=== PATIENT | male | born 1945 | race African-American/Black ===

== ENCOUNTER 2017-01-09 04:21 | Inpatient (IN) ==
[2017-01-09] MEDS ORDERED: ALBUTEROL 2.5 MG/3 ML NEB RESP TX PRN (04:40)
[2017-01-09] MEDS ORDERED: ONDANSETRON 4 MG/2 ML VIAL IV PRN (04:40)
[2017-01-09] MEDS ORDERED: DOPamine 800 MG/250 ML PREMIX IV ONE (05:33)
[2017-01-09] MEDS: DOPamine 800 MG/250 ML PREMIX IV SCH ×2 (05:37→23:06)
--- NOTE | 2017-01-09 05:52 | Hospitalist History & Physical ---
Assessment and Plan (1) Bilateral pneumonia Status: Acute Current Visit: Yes (2) Hypotension Status: Acute Current Visit: Yes (3) Dementia Status: Acute Current Visit: No (4) Dementia of Alzheimer's type with behavioral disturbance Status: Acute Current Visit: No (5) Hypertension Status: Acute Assessment and plan: We are ordering repeat labs. We will start him on IV antibiotics. He did receive Merrem and Levaquin at the outside facility. I am going to change him to Zosyn. Will order ABG. I will get a new chest x-ray. Continue with IV hydration and dopamine. Will continue with PEG tube feedings. Will continue with ICU monitoring secondary to his hypotension. Patient has elevated proBNP. I will order a BNP this morning. Current Visit: No History of Present Illness Chief complaint: Transfer from outside facility History of present illness: Mr. Augustine is a 71 year old male with past medical history significant for dementia, hypertension, anxiety, anemia, coronary artery disease and reflux who is in his normal state of generally poor health till today. Patient is a resident of alf. He was transferred to [facility]. Apparently patient was found to have a bilateral pneumonia and was admitted at the facility. According to the attending there. He had a decrease in blood pressure. And became less responsive. He is put on dopamine and it brought his pressure up after receiving some boluses. I accept the patient is transfer from outside facility and admitted directly to our ICU.. Home Medications Medication Instructions Recorded Confirmed Type RX: Amlodipine Besylate 5 mg PO DAILY 01/09/15 07/27/16 History RX: Atorvastatin [Lipitor] 1 tablet PO DAILY 01/09/15 07/27/16 History RX: Carvedilol 1 tablet PO BID 01/09/15 07/27/16 History RX: Cholecalciferol (Vitamin D3) 1 tablet PER TUBE DAILY 01/09/15 07/27/16 History [Vitamin D3 Chew Tab] RX: Cyanocobalamin (Vitamin B-12) 1,000 mcg PER TUBE DAILY 01/09/15 07/27/16 History [Vitamin B-12] RX: Docusate Sodium Cap [Colace 100 mg PO DAILY 01/09/15 07/27/16 History Cap] RX: Montelukast Tab [Singulair Tab] 10 mg PO BEDTIME 01/09/15 07/27/16 History RX: Multivitamin [One Daily] 1 tablet PO DAILY 01/09/15 07/27/16 History RX: Tamsulosin [Flomax] 1 capsule PO BEDTIME 01/10/15 07/27/16 History RX: Famotidine 20 mg PO DAILY 01/12/15 07/27/16 History RX: Potassium Chloride Cap/Tab [K 20 meq PO DAILY 01/12/15 07/27/16 History Dur] RX: Donepezil [Aricept] 10 mg PO BEDTIME #30 tablet 01/27/15 07/27/16 Rx RX: Memantine [Namenda] 10 mg PO BID #60 tablet 01/27/15 07/27/16 Rx RX: Ferrous Sulfate 325 mg PO BID 07/19/16 07/27/16 History RX: Gabapentin Cap/Tab [Neurontin 400 mg PO TID 07/19/16 07/27/16 History Cap/Tab] RX: Tramadol HCl [Tramadol Tab] 50 mg PO BID 07/19/16 07/27/16 History RX: HYDROcodone/ACETAMIN 5-325 1 tablet PO Q6HR PRN #60 tablet 07/31/16 Rx [[place] 5-325] RX: LORazepam TAB [Ativan Tab] 0.5 mg PO TID #45 tablet 07/31/16 Rx RX: QUEtiapine [SEROquel] 25 mg PO BID tablet 07/31/16 Rx RX: Zaleplon [Sonata] 5 mg PO BEDTIME PRN #30 capsule 07/31/16 Rx RX: busPIRone [Buspar] 15 mg PO BID tablet 07/31/16 Rx Allergies Allergy/AdvReac Type Severity Reaction Status Date / Time olanzapine [From Zyprexa] Allergy Verified 07/19/16 12:52 Medical,Surgical,& Family Hx - Medical History Cardio: History of: Cerebrovascular Disease ( reports unknown), CAD, Hypertension Psychological: History of: Behavior Problems (pulled Iv out of arm, hitting others with aggression), Psychiatric Problems (Delusions-believes he is still able to work at times and he at work) No history of: Violent Behavior Neurology: History of: Cerebrovascular Accident, Dementia No history of: Seizures Endocrine: History of: Dyslipidemia No history of: Diabetes Mellitus (IDDM) Genitourinary: History of: Problems (incontinet) Gastrointestinal: History of: GI Problems (PEG/ dysphagia) Musculoskeletal: History of: Musculoskeletal Problems (poor mobility) - Surgical History Cardiac Surgeries: Sugical HX of: Cardiac Surgery Thoracic Surgeries: Patient denies;: Organ Transplant - Family History Family History: noncontributory (Unknown) - Social History Smoking Status: Unknown if ever smoked ROS unobtainable: due to mental status Exam - Constitutional General appearance: normal weight - Head Head exam: Present: normal inspection - Eye Eye exam: Present: other (Patient currently has upward gaze but would not cooperate with exam) - ENT ENT exam: Present: normal exam - Neck Neck exam: Present: normal inspection - Respiratory Respiratory exam: Present: rhonchi (In the basis) - Cardiovascular Cardiovascular exam: Present: regular rate and rhythm - GI/Abdominal GI/Abdominal exam: Present: hyperactive bowel sounds - Extremities Exam Extremities exam: Present: normal inspection - Back Exam Back exam: Present: normal inspection - Neurological Exam Neurological exam: Present: other (Patient will answer some questions. He responds to pain. Patient has obvious dementia) - Skin Skin exam: Present: normal color Results - Labs Labs: I currently do not have labs from [facility]. Labs have been ordered and are not available at the time of this dictation labs from [facility] or 18 hours old and are as follows white count 3.77 hemoglobin 16.5 hematocrit 51.7 sodium 135 potassium 4.0 chloride 101 bicarb 24 creatinine 1.1 BUN 16 calcium 9.3 glucose 116 total bili 1.6 total protein 7.9 albumin 3.0 alk phos 128 ALT 26 AST 17 magnesium 2.09 kinase 105 CK-MB 1 troponin 0 0.013 proBNP is 2398 urinalysis showed 0-5 white blood cells red blood cells too numerous to count.
[2017-01-09] MEDS: ALBUTEROL/IPRATROPIUM 3 ML NEB RESP TX SCH ×3 (06:47→19:23)
[2017-01-09] MEDS: SODIUM CHLORIDE 0.9% 1,000 ML IV SCH ×2 (07:01→22:33)
[2017-01-09 07:07] LABS: Lactic Acid 2.4 MMOL/L (0.4-2.0)
[2017-01-09 07:16] LABS: Calcium 8.9 MG/DL (8.5-10.1); Osmolality,Calculated 280.5 MOS/KG (273-304)
[2017-01-09] MEDS: PIPERACILLIN/TAZOBACTAM 3,375 MG in SODIUM CHLORIDE 0.9% 100 ML IV SCH ×3 (07:23→22:40)
[2017-01-09 07:33] LABS: Basophils # 0.1 10*3/uL (0.0-0.2); Basophils % 0.9 % (0.0-0.8); Hematocrit 43.1 VOL% (42.0-52.0); Hemoglobin 14.7 GM/DL (14.0-18.0); Immature Granulocytes % 1.4 %; Immature Granulocytes Absolute 0.13 #; Lymphocytes % 10.9 % (21.2-54.2); Mean Corpuscular HGB Conc 34.1 GM/DL (32-36); Mean Corpuscular Hemoglobin 30 PG (27-34); Mean Corpuscular Volume 87.6 FL (87-102); Monocytes # 0.3 10*3/uL (0.11-0.8); Monocytes % 2.8 % (1.7-12.7); Neutrophils # 7.8 10*3/uL (1.4-7.4); Platelet Count 99 T/CUMM (130-400); Red Blood Count 4.92 MC/CUMM (3.8-5.5); Red Cell Distribution Width 13.9 % (9.3-17.3); White Blood Count 9.3 T/CUMM (4-12)
--- NOTE | 2017-01-09 07:51 | XRay Report ---
XR chest 1V portable Indication: SOB Comparison: Chest x-ray dated July 27, 2016 Technique: Single frontal view of the chest. Findings: Continued borderline cardiomegaly status post sternotomy. Hazy opacification throughout the right lung field suspicious for asymmetric pulmonary edema or pneumonia. Visualized osseous and surrounding soft tissue structures appear grossly unchanged. IMPRESSION: As above. PROCEDURE INTERPRETED AT [facility] DEPARTMENT OF RADIOLOGY Final Report Signed by: Dr Jeromy Dyer
[2017-01-09 08:02] LABS: Burr Cells 1+; Hypochromasia Slight
[2017-01-09 08:03] LABS: Platelet Estimate Decreased
[2017-01-09] MEDS: ENOXAPARIN 40 MG/0.4 ML SYRINGE SUBCUT SCH (09:14)
[2017-01-09] MEDS: LANSOPRAZOLE ODT 30 MG TABLET PEG SCH (09:14)
[2017-01-09 10:11] LABS: Apearance,Urine CLEAR (Clear); Bilirubin,Urine Negative (Negative); Blood, Urine Small mg/dL (Negative); Glucose,Urine (UA) Negative (Negative); Ketones,Urine Negative (Negative); Mucus,Urine Occasional /LPF (Occasional); Nitrite,Urine Negative (Negative); Protein,Urine Negative; RBC,Urine 1 /HPF (0-4); Squamous Epithelial Cell,Urine Occasional /HPF (0-10); Urine Color Yellow (Yellow); Urine Specific Gravity 1.004 (1.001-1.035); Urine Urobilinogen < 2.0 EU/DL (0.2-1.0); WBC,Urine 2 /HPF (0-6)
--- NOTE | 2017-01-09 10:55 | Hospitalist Progress Note ---
Assessment and Plan - Time spent with patient Time spent with patient: Greater than 30 minutes (1) Bilateral pneumonia Status: Acute Current Visit: Yes (2) Hypotension Status: Acute Current Visit: Yes (3) Dementia Status: Acute Assessment and plan: He is currently on Zosyn, will add Levaquin for wider coverage and double gram- negative coverage. Follow cultures and adjust antibiotics as needed. Continue respiratory therapy. Pulmonology has been consulted. Wean pressors as tolerated. Gentle IV fluid hydration. Obtain echocardiogram CT chest DVT prophylaxisLovenox Current Visit: No Hospitalist: Subjective Interval history: Admitted overnight for sepsis suspected to be due to pneumonia His clinical status is currently unchanged compared to admission status, still requiring pressors. No fever Dejuan altered mental status, we are not sure of his baseline but at this point without sedation he is barely responds to painful stimuli. Exam - Constitutional Vitals: Period Temp Pulse Resp BP Sys/Bowling Pulse Ox Last 24 Hr 100.1 F 66-96 13-18 67-159/42-88 95-100 Exam: - Constitutional General appearance: Requiring pain to wake him up - Head Head exam: Present: normal inspection - Eye Eye exam: Present: Closed except pain - ENT ENT exam: Present: normal exam - Neck Neck exam: Present: normal inspection - Respiratory Respiratory exam: Present: Left transmitted sounds from the upper airway, difficult to appreciate rhonchi (In the basis) - Cardiovascular Cardiovascular exam: Present: regular rate and rhythm - GI/Abdominal GI/Abdominal exam: Present: hyperactive bowel sounds - Extremities Exam Extremities exam: Present: normal inspection - Back Exam Back exam: Present: normal inspection - Neurological Exam Neurological exam: Present: other sleeping, unable to assess. - Skin Skin exam: Present: normal color Results - Labs CBC & BMP: 01/09/17 07:23 01/09/17 06:06 Lab Results: I have reviewed the past 24 hour labs - Diagnostic Findings Procedure: Chest x-ray: image reviewed by me, report reviewed by me
[2017-01-09] MEDS: LEVOFLOXACIN INJ 750 MG in PREMIX 1 EACH IV SCH (12:24)
--- NOTE | 2017-01-09 13:48 | CT Report ---
CT chest wo con Indication: Shortness of breath Comparison: None Technique: Multiple axial tomographic images of the chest were obtained without the use of intravenous contrast. Findings: Prior CABG. Heart size appears within normal limits. There is small pericardial effusion. Coronary artery calcifications present. Significant patchy dense and groundglass opacification demonstrated within the bilateral lungs involving all lobes, greatest within the right upper lobe and bilateral lower lobes. Status post cholecystectomy. Visualized osseous and surrounding soft tissue structures demonstrate no acute abnormality. IMPRESSION: Significant patchy dense and groundglass opacification demonstrated within the bilateral lungs involving all lobes, greatest within the right upper lobe and bilateral lower lobes. Primary consideration is pneumonia. Pulmonary edema may have similar appearance. Status post CABG. Small pericardial effusion. Other/detailed findings as above. The CT exam was performed using one or more of the following dose reduction techniques: Automated exposure control, adjustment of the mA and/or kV according to patient size, or use of iterative reconstruction technique. PROCEDURE INTERPRETED AT [facility] DEPARTMENT OF RADIOLOGY Final Report Signed by: Dr Jeromy Dyer
--- NOTE | 2017-01-09 14:08 | Pulmonology Consult Note ---
Assessment and Plan (1) Major neurocognitive disorder, due to Alzheimer's disease, with behavioral disturbance, mild Status: Acute Assessment and plan: The patient apparently has significant dementia and is in a correction. Current Visit: No (2) Bilateral pneumonia Status: Acute Assessment and plan: The patient does look like he has bilateral infiltrates and will be covered with antibiotics. He certainly could have some aspiration. Current Visit: Yes (3) Hypotension Status: Acute Assessment and plan: The patient has been requiring dopamine. Current Visit: Yes (4) Hypertension Status: Acute Assessment and plan: Patient has a significant history of hypertension Current Visit: No History of Present Illness Chief complaint: Pneumonia History of present illness: Mr. Augustine is a 71 year old black male that apparently has been in the correction with severe dementia. He has a history of having hypertension, coronary artery disease, along with a chronic neurological problems. He does get PEG tube feedings. He apparently was sent in because of lethargy with low blood pressure and was felt to have bilateral pneumonia. He was admitted to the ICU. He is on dopamine at present. He is not able to respond any or communicate any. He has adequate oxygenation on low-flow oxygen. Home Medications Medication Instructions Recorded Confirmed Type Amlodipine Besylate 5 mg PO DAILY 01/09/15 01/09/17 History Atorvastatin [Lipitor] 1 tablet PO DAILY 01/09/15 01/09/17 History Carvedilol 1 tablet PO BID 01/09/15 01/09/17 History Cholecalciferol (Vitamin D3) 1 tablet PER TUBE DAILY 01/09/15 01/09/17 History [Vitamin D3 Chew Tab] Cyanocobalamin (Vitamin B-12) 1,000 mcg PER TUBE DAILY 01/09/15 01/09/17 History [Vitamin B-12] Docusate Sodium Cap [Colace Cap] 100 mg PO DAILY 01/09/15 01/09/17 History Montelukast Tab [Singulair Tab] 10 mg PO BEDTIME 01/09/15 01/09/17 History Multivitamin [One Daily] 1 tablet PO DAILY 01/09/15 01/09/17 History Tamsulosin [Flomax] 1 capsule PO DAILY 01/10/15 01/09/17 History Famotidine 20 mg PO DAILY 01/12/15 01/09/17 History Potassium Chloride Cap/Tab [K Dur] 20 meq PO DAILY 01/12/15 01/09/17 History Memantine [Namenda] 10 mg PO BID #60 tablet 01/27/15 01/09/17 Rx Ferrous Sulfate 325 mg PO BID 07/19/16 01/09/17 History Gabapentin Cap/Tab [Neurontin 400 mg PO TID 07/19/16 01/09/17 History Cap/Tab] Tramadol HCl [Tramadol Tab] 50 mg PO BID 07/19/16 01/09/17 History HYDROcodone/ACETAMIN 5-325 [[place] 1 tablet PO Q6HR PRN #60 tablet 07/31/1601/09 Rx 5-325] LORazepam TAB [Ativan Tab] 0.5 mg PO TID #45 tablet 07/31/16 01/09/17 Rx QUEtiapine [SEROquel] 25 mg PO BID tablet 07/31/16 01/09/17 Rx Zaleplon [Sonata] 5 mg PO BEDTIME PRN #30 capsule 07/31/16 01/09/17 Rx busPIRone [Buspar] 15 mg PO BID tablet 07/31/16 01/09/17 Rx Donepezil [Aricept] 10 mg PO BEDTIME #30 tablet 01/09/17 01/09/17 Rx Sertraline [Zoloft] 100 mg PO BEDTIME 01/09/17 01/09/17 History clonazePAM TAB [KlonoPIN] 0.5 mg PO TID 01/09/17 01/09/17 History risperiDONE [Risperidone] 0.5 mg PO TID 01/09/17 01/09/17 History Allergies Allergy/AdvReac Type Severity Reaction Status Date / Time olanzapine [From Zyprexa] Allergy Verified 07/19/16 12:52 ROS unobtainable: due to mental status (He is unable to give a history) Exam (Pulmonay) H&P - Constitutional Vitals: Period Temp Pulse Resp BP Sys/Bowling Pulse Ox Last 24 Hr 97.4 F-100.1 F 65-96 13-18 67-159/42-88 95-100 General appearance: normal weight, no acute distress (The patient is lying flat in bed and is not in any distress.) - Head Head exam: Present: normal inspection, normocephalic - Eye Eye exam: Present: other (He has wandering eye movements). Absent: scleral icterus Pupils: Present: TYRONE - ENT ENT exam: Present: normal exam - Neck Neck exam: Present: normal inspection. Absent: lymphadenopathy, thyromegaly - Respiratory Respiratory exam: Present: rhonchi (He has shallow breathing with mild rhonchi.) . Absent: accessory muscle use - Cardiovascular Cardiovascular exam: Present: regular rate and rhythm. Absent: gallop, systolic murmur - GI/Abdominal GI/Abdominal exam: Present: normal bowel sounds, soft. Absent: distended, organomegaly, tenderness - Extremities Exam Extremities exam: Absent: calf tenderness, edema - Neurological Exam Neurological exam: Present: altered (He has significant dementia), other ( Patient apparently will respond occasionally) - Psychiatric Psychiatric exam: Absent: anxious - Skin Skin exam: Present: warm, dry Medical,Surgical,& Family Hx - Medical History Cardio: History of: Cerebrovascular Disease ( reports unknown), CAD, Hypertension Psychological: History of: Behavior Problems (pulled Iv out of arm, hitting others with aggression), Psychiatric Problems (Delusions-believes he is still able to work at times and he at work) No history of: Violent Behavior Neurology: History of: Cerebrovascular Accident, Dementia No history of: Seizures Endocrine: History of: Dyslipidemia No history of: Diabetes Mellitus (IDDM) Genitourinary: History of: Problems (incontinet) Gastrointestinal: History of: GI Problems (PEG/ dysphagia) Musculoskeletal: History of: Musculoskeletal Problems (poor mobility) - Surgical History Cardiac Surgeries: Sugical HX of: Cardiac Surgery Thoracic Surgeries: Patient denies;: Organ Transplant - Social History Smoking Status: Unknown if ever smoked Results - Labs CBC & BMP: 01/09/17 07:23 01/09/17 06:06 - Diagnostic Findings Procedure: Chest x-ray: image reviewed by me, report reviewed by me (Chest x- ray does show right lung infiltrate.), CT - chest: image reviewed by me, report reviewed by me (CT shows extensive right lung infiltrate and some left lower lobe infiltrate)
[2017-01-10] MEDS: ALBUTEROL/IPRATROPIUM 3 ML NEB RESP TX SCH ×4 (00:15→19:50)
[2017-01-10 04:26] LABS: Phosphorous 1.7 MG/DL (2.5-4.9)
[2017-01-10] MEDS: DOPamine 800 MG/250 ML PREMIX IV SCH (06:38)
[2017-01-10] MEDS: PIPERACILLIN/TAZOBACTAM 3,375 MG in SODIUM CHLORIDE 0.9% 100 ML IV SCH ×3 (06:38→22:59)
--- NOTE | 2017-01-10 08:11 | Pulmonology Progress Note ---
Pulmonary - PN: Subj Interval history: Patient is a 71-year-old black man that has severe dementia. He is in a snf and has tube feedings but may also get a pured diet. He is not very alert and looks like he could aspirate easily. He comes in with bilateral infiltrates and is being treated for pneumonia. He apparently had a little bit agitation last night but he is sleeping now. He is getting antibiotics and is breathing reasonably well. He is still on low-dose dopamine. He looks like he is resting comfortably at present Exam (Progress Note) - Constitutional Vitals: Period Temp Pulse Resp BP Sys/Bowling Pulse Ox Last 24 Hr 97.4 F-98.9 F 63-119 13-25 83-169/47-95 85-100 Exam: General appearance: normal weight, no acute distress (The patient is lying flat in bed and is not in any distress. He still does not arouse very well.) - Head Head exam: Present: normal inspection, normocephalic - Eye Eye exam: Present: other (He has wandering eye movements). Absent: scleral icterus Pupils: Present: TYRONE - ENT ENT exam: Present: normal exam - Neck Neck exam: Present: normal inspection. Absent: lymphadenopathy, thyromegaly - Respiratory Respiratory exam: Present: He has fair breath sounds bilaterally with some mild rhonchi bilaterally. - Cardiovascular Cardiovascular exam: Present: regular rate and rhythm. Absent: gallop, systolic murmur - GI/Abdominal GI/Abdominal exam: Present: normal bowel sounds, soft. Absent: distended, organomegaly, tenderness - Extremities Exam Extremities exam: Absent: calf tenderness, edema - Neurological Exam Neurological exam: Present: altered (He has significant dementia), other ( Patient apparently will respond occasionally) - Psychiatric Psychiatric exam: Absent: anxious - Skin Skin exam: Present: warm, dry Results - Labs CBC & BMP: 01/09/17 07:23 01/09/17 06:06 Assessment and Plan (1) Major neurocognitive disorder, due to Alzheimer's disease, with behavioral disturbance, mild Status: Acute Assessment and plan: The patient apparently has significant dementia and is in a snf. He really does not follow commands or respond that well. Current Visit: No (2) Bilateral pneumonia Status: Acute Assessment and plan: The patient does look like he has bilateral infiltrates and will be covered with antibiotics. He still is breathing comfortably and has an adequate oxygenation. He will continue with present therapy. Current Visit: Yes (3) Hypotension Status: Acute Assessment and plan: The patient has been requiring dopamine. His blood pressure was reasonably stable through the night. Current Visit: Yes (4) Hypertension Status: Acute Assessment and plan: Patient has a significant history of hypertension Current Visit: No
[2017-01-10] MEDS: ENOXAPARIN 40 MG/0.4 ML SYRINGE SUBCUT SCH (09:22)
[2017-01-10] MEDS: LANSOPRAZOLE ODT 30 MG TABLET PEG SCH (09:22)
--- NOTE | 2017-01-10 10:03 | Hospitalist Progress Note ---
Assessment and Plan (1) Sepsis Status: Acute Assessment and plan: Sepsis secondary to pneumonia. Elevated lactic acid of 2.4. Patient was tachycardic and hypotensive requiring dopamine. This is improving with IV antibiotics and IV fluids. Current Visit: Yes Qualifiers: Sepsis type: sepsis due to unspecified organism Qualified Code(s): A41.9 - Sepsis, unspecified organism (2) Bilateral pneumonia Status: Acute Assessment and plan: Bilateral multi lobar pneumonia. Continue Levaquin and Zosyn. Follow-up repeat chest x-ray. Pulmonary following. Current Visit: Yes Qualifiers: Pneumonia type: due to unspecified organism Lung location: unspecified part of lung Qualified Code(s): J18.9 - Pneumonia, unspecified organism (3) Dementia Status: Chronic Current Visit: No Qualifiers: Dementia type: Alzheimer's disease Alzheimer's disease onset: unspecified onset Dementia behavioral disturbance: with behavioral disturbance Qualified Code(s): G30.8 - Other Alzheimer's disease; F02.81 - Dementia in other diseases classified elsewhere with behavioral disturbance (4) Major neurocognitive disorder, due to Alzheimer's disease, with behavioral disturbance, mild Status: Acute Current Visit: No Hospitalist: Subjective Interval history: Patient seen and examined. No acute events overnight. Case discussed with nursing staff. Labs reviewed. Dopamine weaned off early this morning. Patient has history of dementia and is difficult to communicate with. Respirations are unlabored. Vital signs are improved. Pulmonary consult reviewed. Patient on Levaquin and Zosyn. Exam - Constitutional Vitals: Period Temp Pulse Resp BP Sys/Bowling Pulse Ox Last 24 Hr 97.4 F-98.9 F 63-119 13-25 83-169/47-95 85-100 Exam: Constitutional System: Mild distress. No tremulousness. Head: Normocephalic, atraumatic. Ears, Nose and Throat System: No pain or tenderness. No epistaxis or discharge Eyes System: Pupils equal, round, and reactive. Extraocular muscles intact. Neck: Supple, without adenopathy, No jugular venous distention. No thyromegaly, neck mass, or prior surgery apparent. Respiratory System: Chest rhonchi bilaterally to auscultation. Cardiovascular System: Heart with regular rate and rhythm. GI System: Abdomen soft, nontender. Normo active bowel sounds present. Musculoskeletal System: limbs with no pedal edema. Full distal pulses. Neurological System: Advanced dementia noted. Does not follow commands Results - Labs CBC & BMP: 01/09/17 07:23 01/09/17 06:06 Lab Results: I have reviewed the past 24 hour labs - Diagnostic Findings Procedure: Chest x-ray: image reviewed by me, report reviewed by me, CT - chest : image reviewed by me, report reviewed by me
[2017-01-10] MEDS: LEVOFLOXACIN INJ 750 MG in PREMIX 1 EACH IV SCH (10:53)
[2017-01-10] MEDS: SODIUM CHLORIDE 0.9% 1,000 ML IV SCH (18:11)
[2017-01-11] MEDS: ALBUTEROL/IPRATROPIUM 3 ML NEB RESP TX SCH ×4 (01:36→19:20)
[2017-01-11 04:12] LABS: Basophils % 0.2 % (0.0-0.8); Eosinophils % 0.4 % (0.00-10.9); Hematocrit 40.5 VOL% (42.0-52.0); Hemoglobin 13.7 GM/DL (14.0-18.0); Immature Granulocytes % 0.6 %; Immature Granulocytes Absolute 0.06 #; Lymphocytes # 1.4 10*3/uL (1.4-4.0); Lymphocytes % 13.8 % (21.2-54.2); Mean Corpuscular HGB Conc 33.8 GM/DL (32-36); Mean Corpuscular Hemoglobin 30 PG (27-34); Mean Corpuscular Volume 87.1 FL (87-102); Mean Platelet Volume 11.4 FL (9.6-12.0); Monocytes # 0.7 10*3/uL (0.11-0.8); Monocytes % 7.3 % (1.7-12.7); Neutrophils # 7.6 10*3/uL (1.4-7.4); Neutrophils % 77.7 % (38.7-73.9); Platelet Count 112 T/CUMM (130-400); Red Blood Count 4.65 MC/CUMM (3.8-5.5); Red Cell Distribution Width 13.3 % (9.3-17.3); White Blood Count 9.8 T/CUMM (4-12)
[2017-01-11] MEDS: SODIUM CHLORIDE 0.9% 1,000 ML IV SCH ×3 (04:32→17:37)
[2017-01-11 04:45] LABS: Calcium 8.7 MG/DL (8.5-10.1); Magnesium 2.2 MG/DL (1.8-2.4); Osmolality,Calculated 282.1 MOS/KG (273-304); Potassium 3.2 MMOL/L (3.5-5.1)
[2017-01-11 05:26] LABS: Band Neutrophils 2 % (0-10); Burr Cells Slight; Hypochromasia Slight; Lymphocytes 18 % (20-55); Ovalocytes Slight; Platelet Estimate Decreased; Segmented Neutrophils 76 % (50-85); Total Cells Counted 100
[2017-01-11] MEDS: PIPERACILLIN/TAZOBACTAM 3,375 MG in SODIUM CHLORIDE 0.9% 100 ML IV SCH ×3 (06:31→21:21)
[2017-01-11] MEDS: DOPamine 800 MG/250 ML PREMIX IV SCH (06:31)
--- NOTE | 2017-01-11 07:35 | XRay Report ---
XR chest 1V portable Indication: Pneumonia Comparison: Chest x-ray dated January 09, 2017 Technique: Single frontal view of the chest. Findings: Continued cardiomegaly status post sternotomy. Interval increased diffuse right lung consolidation consistent with asymmetric pulmonary edema or pneumonia. Visualized osseous and surrounding soft tissue structures appear grossly unchanged. IMPRESSION: As above. PROCEDURE INTERPRETED AT [facility] DEPARTMENT OF RADIOLOGY Final Report Signed by: Dr Jeromy Dyer
--- NOTE | 2017-01-11 08:18 | Pulmonology Progress Note ---
Pulmonary - PN: Subj Interval history: Patient is a 71-year-old black man that has severe dementia. He is in a [place] [facility] and has tube feedings but may also get a pured diet. He is not very alert and looks like he could aspirate easily. He comes in with bilateral infiltrates and is being treated for pneumonia. He does not cough very well. He does not appear to be in much distress. He does not respond very well. His chest x-ray shows considerable right lung infiltrate. Exam (Progress Note) - Constitutional Vitals: Period Temp Pulse Resp BP Sys/Bowlign Pulse Ox Last 24 Hr 98 F-99.2 F 6-103 3-25 86-171/54-92 96-100 Exam: General appearance: normal weight, no acute distress (The patient is lying flat in bed and is not in any distress. He still does not arouse very well. He still is breathing comfortably.) - Head Head exam: Present: normal inspection, normocephalic - Eye Eye exam: Present: other (He has wandering eye movements). Absent: scleral icterus Pupils: Present: TYRONE - ENT ENT exam: Present: normal exam - Neck Neck exam: Present: normal inspection. Absent: lymphadenopathy, thyromegaly - Respiratory Respiratory exam: Present: He has fair breath sounds bilaterally with some mild rhonchi bilaterally. - Cardiovascular Cardiovascular exam: Present: regular rate and rhythm. Absent: gallop, systolic murmur - GI/Abdominal GI/Abdominal exam: Present: normal bowel sounds, soft. Absent: distended, organomegaly, tenderness - Extremities Exam Extremities exam: Absent: calf tenderness, edema - Neurological Exam Neurological exam: Present: altered (He has significant dementia), other ( Patient apparently will respond occasionally) - Psychiatric Psychiatric exam: Absent: anxious - Skin Skin exam: Present: warm, dry Results - Labs CBC & BMP: 01/11/17 02:50 01/11/17 02:50 - Diagnostic Findings Procedure: Chest x-ray: image reviewed by me, report reviewed by me (Chest x- ray shows considerable infiltrate on the right.) Assessment and Plan (1) Major neurocognitive disorder, due to Alzheimer's disease, with behavioral disturbance, mild Status: Acute Assessment and plan: The patient apparently has significant dementia and is in a [place] [facility]. He really does not follow commands or respond that well. Current Visit: No (2) Bilateral pneumonia Status: Acute Assessment and plan: The patient mainly has a right lung infiltrate now. He has poor pulmonary toilet. Will plan a bronchoscope in the morning and check his airway. Current Visit: Yes Qualifiers: Pneumonia type: due to unspecified organism Lung location: unspecified part of lung Qualified Code(s): J18.9 - Pneumonia, unspecified organism (3) Hypotension Status: Acute Assessment and plan: The patient has been requiring dopamine. His blood pressure is better and is off pressors now. Current Visit: Yes (4) Hypertension Status: Acute Assessment and plan: Patient has a significant history of hypertension Current Visit: No
[2017-01-11] MEDS: ENOXAPARIN 40 MG/0.4 ML SYRINGE SUBCUT SCH (08:22)
[2017-01-11] MEDS: LANSOPRAZOLE ODT 30 MG TABLET PEG SCH (08:22)
[2017-01-11] MEDS: POTASSIUM CHLORIDE RIDER 10 MEQ in PREMIX 1 EACH IV SCH ×4 (08:22→12:54)
--- NOTE | 2017-01-11 08:34 | Hospitalist Progress Note ---
Assessment and Plan (1) Sepsis Status: Acute Assessment and plan: Sepsis secondary to pneumonia. Elevated lactic acid of 2.4. Patient was tachycardic and hypotensive requiring dopamine. This is improving with IV antibiotics and IV fluids. 01/11/17 He is off pressors. Vital signs are stable. Continue IV antibiotics. Plan for bronchoscopy by Dr. Dawson in the a.m. Current Visit: Yes Qualifiers: Sepsis type: sepsis due to unspecified organism Qualified Code(s): A41.9 - Sepsis, unspecified organism (2) Bilateral pneumonia Status: Acute Assessment and plan: Bilateral multi lobar pneumonia. Continue Levaquin and Zosyn. Worse on the right. pulmonary following. Current Visit: Yes Qualifiers: Pneumonia type: due to unspecified organism Lung location: unspecified part of lung Qualified Code(s): J18.9 - Pneumonia, unspecified organism (3) Dementia Status: Chronic Current Visit: No Qualifiers: Dementia type: Alzheimer's disease Alzheimer's disease onset: unspecified onset Dementia behavioral disturbance: with behavioral disturbance Qualified Code(s): G30.8 - Other Alzheimer's disease; F02.81 - Dementia in other diseases classified elsewhere with behavioral disturbance (4) Major neurocognitive disorder, due to Alzheimer's disease, with behavioral disturbance, mild Status: Acute Current Visit: No Hospitalist: Subjective Interval history: Patient seen and examined. No acute events overnight. Case discussed with nursing staff. Labs reviewed. Chest x-ray reviewed showing significant right lung infiltrates. Pulmonary note reviewed and plan for bronchoscopy noted. Patient off pressors. No acute distress. Vital signs stable. Exam - Constitutional Vitals: Period Temp Pulse Resp BP Sys/Bowling Pulse Ox Last 24 Hr 98 F-99.2 F 6-103 3-25 95-171/62-92 96-100 Exam: Constitutional System: No distress. No tremulousness. Arouses easily to verbal command. Head: Normocephalic, atraumatic. Ears, Nose and Throat System: No pain or tenderness. No epistaxis or discharge Eyes System: Pupils equal, round, and reactive. Extraocular muscles intact. Neck: Supple, without adenopathy, No jugular venous distention. No thyromegaly, neck mass, or prior surgery apparent. Respiratory System: Chest rhonchi right lung to auscultation. Wet sounding cough. Nonproductive. Cardiovascular System: Heart with regular rate and rhythm. GI System: Abdomen soft, nontender. Normo active bowel sounds present. Musculoskeletal System: limbs with no pedal edema. Full distal pulses. Neurological System: Advanced dementia noted. Results - Labs CBC & BMP: 01/11/17 02:50 01/11/17 02:50 Lab Results: I have reviewed the past 24 hour labs - Diagnostic Findings Procedure: Chest x-ray: image reviewed by me, report reviewed by me (Extensive right lung infiltrate)
[2017-01-11] MEDS: MEMANTINE 10 MG TABLET PO SCH ×2 (10:45→21:21)
[2017-01-11] MEDS ORDERED: POTASSIUM CHLORIDE RIDER 100 ML IV ONE (12:32)
[2017-01-11] MEDS: LEVOFLOXACIN INJ 750 MG in PREMIX 1 EACH IV SCH (12:55)
[2017-01-11] MEDS: MONTELUKAST 10 MG TABLET PO SCH (21:21)
[2017-01-12] MEDS: ALBUTEROL/IPRATROPIUM 3 ML NEB RESP TX SCH ×4 (00:10→19:38)
[2017-01-12] MEDS: PIPERACILLIN/TAZOBACTAM 3,375 MG in SODIUM CHLORIDE 0.9% 100 ML IV SCH ×3 (06:28→21:19)
[2017-01-12] MEDS: SODIUM CHLORIDE 0.9% 1,000 ML IV SCH ×2 (06:57→21:19)
[2017-01-12] MEDS ORDERED: MIDAZOLAM 2 MG/2 ML VIAL ONE (07:08)
[2017-01-12 07:21] LABS: Basophils % 0.3 % (0.0-0.8); Eosinophils % 0.5 % (0.00-10.9); Hematocrit 35.8 VOL% (42.0-52.0); Hemoglobin 12.3 GM/DL (14.0-18.0); Immature Granulocytes Absolute 0.06 #; Lymphocytes # 1.1 10*3/uL (1.4-4.0); Lymphocytes % 18.2 % (21.2-54.2); Mean Corpuscular HGB Conc 34.4 GM/DL (32-36); Mean Corpuscular Hemoglobin 30 PG (27-34); Mean Corpuscular Volume 85.9 FL (87-102); Mean Platelet Volume 10.8 FL (9.6-12.0); Monocytes # 0.8 10*3/uL (0.11-0.8); Monocytes % 13.9 % (1.7-12.7); Neutrophils # 3.8 10*3/uL (1.4-7.4); Neutrophils % 66.1 % (38.7-73.9); Platelet Count 125 T/CUMM (130-400); Red Blood Count 4.17 MC/CUMM (3.8-5.5); Red Cell Distribution Width 13.1 % (9.3-17.3); White Blood Count 5.8 T/CUMM (4-12)
[2017-01-12] MEDS ORDERED: LIDOCAINE 2% VISCOUS 100 ML BOTTLE SWISH/SPIT ONE (07:30)
[2017-01-12] MEDS ORDERED: LIDOCAINE 1% 20 ML VIAL MISC INJ ONE (07:30)
[2017-01-12] MEDS ORDERED: MIDAZOLAM 2 MG/2 ML VIAL IV ONE (07:30)
[2017-01-12] MEDS ORDERED: LIDOCAINE 4% TOP SOLN 50 ML BOTTLE RESP TX ONE (07:30)
[2017-01-12 07:54] LABS: Calcium 8.4 MG/DL (8.5-10.1); Osmolality,Calculated 277.4 MOS/KG (273-304); Potassium 3.4 MMOL/L (3.5-5.1)
--- NOTE | 2017-01-12 08:13 | Pulmonology Progress Note ---
Pulmonary - PN: Subj Interval history: Patient is a 71-year-old black man that has severe dementia. He is in a senior living and has tube feedings but may also get a pured diet. He is not very alert and looks like he could aspirate easily. He comes in with bilateral infiltrates and is being treated for pneumonia. He does not cough very well. He still has considerable infiltrate in the right lung. He is not coughing that much at all. He did have a temperature to 100.1 last night. He is actually talking a little bit more this morning. He is not having a lot of respiratory distress at all. We will go ahead with a bronchoscopy and clear his airways and obtain cultures. Exam (Progress Note) - Constitutional Vitals: Period Temp Pulse Resp BP Sys/Bowling Pulse Ox Last 24 Hr 97.3 F-100.1 F 69-95 16-20 125-146/69-85 90-98 Exam: General appearance: normal weight, no acute distress (The patient is lying flat in bed and is not in any distress. He is actually talking a little bit but does not do much activity. He does have a very weak cough.) - Head Head exam: Present: normal inspection, normocephalic - Eye Eye exam: Present: other (He has wandering eye movements). Absent: scleral icterus Pupils: Present: TYRONE - ENT ENT exam: Present: normal exam - Neck Neck exam: Present: normal inspection. Absent: lymphadenopathy, thyromegaly - Respiratory Respiratory exam: Present: He has fair breath sounds bilaterally with some mild rhonchi bilaterally. - Cardiovascular Cardiovascular exam: Present: regular rate and rhythm. Absent: gallop, systolic murmur - GI/Abdominal GI/Abdominal exam: Present: normal bowel sounds, soft. Absent: distended, organomegaly, tenderness - Extremities Exam Extremities exam: Absent: calf tenderness, edema - Neurological Exam Neurological exam: Present: altered (He has significant dementia), other ( Patient apparently will respond and occasionally says a word or 2.) - Psychiatric Psychiatric exam: Absent: anxious - Skin Skin exam: Present: warm, dry Results - Labs CBC & BMP: 01/12/17 07:00 01/12/17 07:00 - Diagnostic Findings Procedure: Chest x-ray: image reviewed by me, report reviewed by me (Mild infiltrate in the left base.) Assessment and Plan (1) Major neurocognitive disorder, due to Alzheimer's disease, with behavioral disturbance, mild Status: Acute Assessment and plan: The patient apparently has significant dementia and is in a senior living. He really does not follow commands or respond that well. He is actually talking a little this morning. Current Visit: No (2) Bilateral pneumonia Status: Acute Assessment and plan: The patient mainly has a right lung infiltrate now. He has poor pulmonary toilet. He still does not cough much. His chest x-ray is not much better. Will proceed with a bronchoscope this morning. Current Visit: Yes Qualifiers: Pneumonia type: due to unspecified organism Lung location: unspecified part of lung Qualified Code(s): J18.9 - Pneumonia, unspecified organism (3) Hypotension Status: Acute Assessment and plan: The patient has a much better blood pressure and is off pressors. Current Visit: Yes (4) Hypertension Status: Acute Assessment and plan: Patient has a significant history of hypertension Current Visit: No
[2017-01-12 08:15] LABS: Burr Cells Slight; Hypochromasia 1+; Lymphocytes 16 % (20-55); Segmented Neutrophils 74 % (50-85); Total Cells Counted 100
[2017-01-12 08:16] LABS: Microcytosis Slight; Ovalocytes Slight
[2017-01-12 08:17] LABS: Platelet Estimate Adequate
--- NOTE | 2017-01-12 08:19 | XRay Report ---
XR chest 1V portable Indication: Pneumonia Comparison: Chest x-ray dated January 11, 2017 Technique: Single frontal view of the chest. Findings: Continued cardiomegaly status post sternotomy. Diffuse opacification of the right lung appears similar to prior examination. Visualized osseous and surrounding soft tissue structures appear grossly unchanged. IMPRESSION: No significant interval change. PROCEDURE INTERPRETED AT [facility] DEPARTMENT OF RADIOLOGY Final Report Signed by: Dr Jeromy Dyer
--- NOTE | 2017-01-12 08:35 | Operative Note ---
Date of procedure: 01/12/17 Pre-op diagnosis: Bilateral pneumonia Post-op diagnosis: other (Mucous plugging and retained secretions) Procedure: The patient is an elderly man with dementia that is basically bedridden. He has persistent bilateral infiltrates. A bronchoscopy will be done to clear airways and obtain cultures. Timeout was performed to identify the patient. The patient is in the bronchoscopy lab. Preop: None Anesthesia: Versed 4 mg IVP, topical lidocaine. Procedure: The fiberoptic bronchoscope was passed transnasally through the vocal cords into the lungs. The bronchopulmonary segments were identified and specimens were obtained. Findings: The vocal cords close normally and the trachea is unremarkable. There is some very thick mucus and plugs in the right upper lobe and right lower lobe. Left lower lobe also has some thick mucus. There are no endobronchial lesions seen. The right upper lobe, right middle lobe, and right lower lobe are all open. The left upper lobe, lingula, and left lower lobe are open. Bronchoalveolar lavage was done in the right upper lobe and right lower lobe. Washings were sent for culture. The left lower lobe was also lavaged. Once the thick secretions were clear the procedure was stopped. The patient actually coughed fairly well once he was stimulated. He tolerated the procedure without any problems. Impression: Bilateral pneumonia with retained secretions. Plan: We will continue antibiotics and respiratory therapy. Anesthesia: conscious sedation Surgeon / Physician: Pierre Dawson Estimated blood loss: none Specimens: other (Washings were sent for culture) Condition: stable Disposition: floor Results - Labs CBC & BMP: 01/12/17 07:00 01/12/17 07:00 Discharge Plan - Discharge Medications No Action Amlodipine Besylate 5 mg PO DAILY Atorvastatin [Lipitor] 1 tablet PO DAILY Carvedilol 1 tablet PO BID Cholecalciferol (Vitamin D3) [Vitamin D3 Chew Tab] 1 tablet PER TUBE DAILY Cyanocobalamin (Vitamin B-12) [Vitamin B-12] 1,000 mcg PER TUBE DAILY Montelukast Tab [Singulair Tab] 10 mg PO BEDTIME Docusate Sodium Cap [Colace Cap] 100 mg PO DAILY Multivitamin [One Daily] 1 tablet PO DAILY Tamsulosin [Flomax] 1 capsule PO DAILY Potassium Chloride Cap/Tab [K Dur] 20 meq PO DAILY Famotidine 20 mg PO DAILY Sertraline [Zoloft] 100 mg PO BEDTIME clonazePAM TAB [KlonoPIN] 0.5 mg PO TID risperiDONE [Risperidone] 0.5 mg PO TID Memantine [Namenda] 10 mg PO BID #60 tablet Tramadol HCl [Tramadol Tab] 50 mg PO BID Gabapentin Cap/Tab [Neurontin Cap/Tab] 400 mg PO TID HYDROcodone/ACETAMIN 5-325 [[place] 5-325] 1 tablet PO Q6HR PRN #60 tablet PRN Reason: Pain Zaleplon [Sonata] 5 mg PO BEDTIME PRN #30 capsule PRN Reason: Sleep Ferrous Sulfate 325 mg PO BID LORazepam TAB [Ativan Tab] 0.5 mg PO TID #45 tablet QUEtiapine [SEROquel] 25 mg PO BID tablet busPIRone [Buspar] 15 mg PO BID tablet - Follow Up or Referral - Forms/Instructions
[2017-01-12] MEDS: MULTIVITAMIN (CENTRUM) TABLET PO SCH (10:35)
[2017-01-12] MEDS: MEMANTINE 10 MG TABLET PO SCH ×2 (10:35→21:19)
[2017-01-12] MEDS: LANSOPRAZOLE ODT 30 MG TABLET PEG SCH (10:36)
[2017-01-12] MEDS: ENOXAPARIN 40 MG/0.4 ML SYRINGE SUBCUT SCH (10:37)
[2017-01-12] MEDS: LEVOFLOXACIN INJ 750 MG in PREMIX 1 EACH IV SCH (10:37)
--- NOTE | 2017-01-12 14:58 | Hospitalist Progress Note ---
Assessment and Plan (1) Bilateral pneumonia Status: Acute Assessment and plan: Bronch today Pulmonary assisting Continue levaquin and zosyn Sepsis is now resolved Current Visit: Yes Qualifiers: Pneumonia type: due to unspecified organism Lung location: unspecified part of lung Qualified Code(s): J18.9 - Pneumonia, unspecified organism (2) Dementia Status: Chronic Current Visit: No Qualifiers: Dementia type: Alzheimer's disease Alzheimer's disease onset: unspecified onset Dementia behavioral disturbance: with behavioral disturbance Qualified Code(s): G30.8 - Other Alzheimer's disease; F02.81 - Dementia in other diseases classified elsewhere with behavioral disturbance Hospitalist: Subjective Interval history: No acute events overnight. Patient is mostly non-verbal but he does tell me that he feels alright. He no longer focuses on me after that. Bronch today Exam - Constitutional Vitals: Period Temp Pulse Resp BP Sys/Bowling Pulse Ox Last 24 Hr 97.3 F-100.3 F 62-96 14-26 105-156/62-85 90-100 General appearance: normal weight - Head Head exam: Present: normocephalic, atraumatic - Eye Eye exam: Present: EOMI Pupils: Present: TYRONE - ENT ENT exam: Present: normal exam - Neck Neck exam: Present: normal inspection - Respiratory Respiratory exam: Present: clear to auscultation bilaterally - Cardiovascular Cardiovascular exam: Present: regular rate and rhythm - GI/Abdominal GI/Abdominal exam: Present: normal bowel sounds, soft. Absent: tenderness, rebound - Back Exam Back exam: Present: normal inspection - Neurological Exam Neurological exam: Present: alert, oriented X3 - Psychiatric Psychiatric exam: Present: normal affect, normal mood - Skin Skin exam: Present: warm, intact Results - Labs CBC & BMP: 01/12/17 07:00 01/12/17 07:00
[2017-01-12] MEDS: MONTELUKAST 10 MG TABLET PO SCH (21:19)
[2017-01-12] MEDS: ACETAMINOPHEN 325 MG TABLET PER TUBE PRN (23:05)
[2017-01-13] MEDS: ALBUTEROL/IPRATROPIUM 3 ML NEB RESP TX SCH ×4 (01:00→19:03)
[2017-01-13] MEDS: PIPERACILLIN/TAZOBACTAM 3,375 MG in SODIUM CHLORIDE 0.9% 100 ML IV SCH ×3 (06:33→21:05)
[2017-01-13 06:48] LABS: Basophils % 0.5 % (0.0-0.8); Eosinophils % 0.5 % (0.00-10.9); Hematocrit 33.4 VOL% (42.0-52.0); Hemoglobin 11.6 GM/DL (14.0-18.0); Immature Granulocytes % 0.7 %; Immature Granulocytes Absolute 0.04 #; Lymphocytes # 0.6 10*3/uL (1.4-4.0); Lymphocytes % 9.2 % (21.2-54.2); Mean Corpuscular HGB Conc 34.7 GM/DL (32-36); Mean Corpuscular Hemoglobin 30 PG (27-34); Mean Corpuscular Volume 86.3 FL (87-102); Mean Platelet Volume 11.4 FL (9.6-12.0); Monocytes # 0.9 10*3/uL (0.11-0.8); Monocytes % 15.1 % (1.7-12.7); Neutrophils # 4.5 10*3/uL (1.4-7.4); Platelet Count 121 T/CUMM (130-400); Red Blood Count 3.87 MC/CUMM (3.8-5.5); Red Cell Distribution Width 13.3 % (9.3-17.3)
[2017-01-13 07:15] LABS: Calcium 8.1 MG/DL (8.5-10.1); Magnesium 2.1 MG/DL (1.8-2.4); Osmolality,Calculated 282.3 MOS/KG (273-304); Potassium 3.1 MMOL/L (3.5-5.1)
[2017-01-13] MEDS: LANSOPRAZOLE ODT 30 MG TABLET PEG SCH (08:43)
[2017-01-13] MEDS: MEMANTINE 10 MG TABLET PO SCH ×2 (08:43→20:42)
[2017-01-13] MEDS: ENOXAPARIN 40 MG/0.4 ML SYRINGE SUBCUT SCH (08:43)
[2017-01-13] MEDS: MULTIVITAMIN (CENTRUM) TABLET PO SCH (08:43)
--- NOTE | 2017-01-13 09:23 | Physician Query Form ---
CLICK EDIT DOCUMENT TO SELECT QUERY ANSWER --> OK --> SIGN Shayna rGady RN Clinical [employer] W) [phone] (f) [phone] [email or web address] PROVIDERS: Make your selection(s) from the choices in EACH section by typing an "x" and enter comments in the comment section. Please use your independent medical judgment in providing your response. This request does not imply that any particular answer is desired or expected. CLINICAL INDICATORS: (Providers should not edit this section) Pt. admitted with sepsis. Based on documentation of "hypotension. He is still requiring pressors". Blood pressure =67/42. Pt. treated with Dopamine. Lactic acid =2.4 Please clarify which, if any, of the following is the etiology of the above symptoms and treatment rendered: (x ) Septic Shock (severe sepsis with hypotension) ( ) Severe Sepsis (sepsis with acute organ failure) - Please specify type acute organ failure: ( ) Sepsis due to a localized infection, please specify infection: ( ) Other condition, please specify: ( ) Clinically unable to determine Criteria for Sepsis (SIRS due to an infection) should be based on 2 or more of the following being present: Temperature > 101F or < 96.8F WBC > 12,000 or < 4,000, or > 10% bands Tachycardia HR > 90 beats/minute Tachypnea RR > 20 breaths/minute or PaCO2 > 32mmHg Lactate level > 2.0 mmol/L (>4 is equivalent to severe sepsis) Altered Mental Status Mottling of skin or prolonged capillary refill Non-diabetic hyperglycemia (blood sugar >120 mg/dl) Other evidence of acute organ failure associated with sepsis ( severe sepsis) COMMENTS: PLEASE ALSO DOCUMENT RESPONSE IN PROGRESS NOTES AND/OR DISCHARGE SUMMARY Use of terms such as suspected, likely, or probable (associated with a specific diagnosis that is being evaluated, monitored, or treated as if it exists) are acceptable and can be restated in the discharge summary if not ruled out. MTDD
--- NOTE | 2017-01-13 10:23 | Pulmonology Progress Note ---
Pulmonary - PN: Subj Interval history: Patient is a 71-year-old black man that has severe dementia. He is in a half-way and has tube feedings but may also get a pured diet. He is not very alert and looks like he could aspirate easily. He comes in with bilateral infiltrates and is being treated for pneumonia. He does not cough very well. He still has considerable infiltrate in the right lung. Yesterday we did a bronchoscopy and cleaned out his airways. The cultures are negative so far. He did have a temperature to 100.2 last night. He looks like he is breathing comfortably at present and he will respond a little better. Overall he is looks reasonably stable. Exam (Progress Note) - Constitutional Vitals: Period Temp Pulse Resp BP Sys/Bowling Pulse Ox Last 24 Hr 98.8 F-101.2 F 63-95 16-20 111-158/61-91 90-99 Exam: General appearance: normal weight, no acute distress (The patient is lying flat in bed and is not in any distress. He is actually talking a little bit but does not do much activity. He looks comfortable today.) - Head Head exam: Present: normal inspection, normocephalic - Eye Eye exam: Present: other (He has wandering eye movements). Absent: scleral icterus Pupils: Present: TYRONE - ENT ENT exam: Present: normal exam - Neck Neck exam: Present: normal inspection. Absent: lymphadenopathy, thyromegaly - Respiratory Respiratory exam: Present: He has fair breath sounds bilaterally with some mild rhonchi bilaterally. He is moving air a little better now. - Cardiovascular Cardiovascular exam: Present: regular rate and rhythm. Absent: gallop, systolic murmur - GI/Abdominal GI/Abdominal exam: Present: normal bowel sounds, soft. Absent: distended, organomegaly, tenderness - Extremities Exam Extremities exam: Absent: calf tenderness, edema - Neurological Exam Neurological exam: Present: altered (He has significant dementia), other ( Patient apparently will respond and occasionally says a word or 2.) - Psychiatric Psychiatric exam: Absent: anxious - Skin Skin exam: Present: warm, dry Results - Labs CBC & BMP: 01/13/17 06:08 01/13/17 06:08 Assessment and Plan (1) Major neurocognitive disorder, due to Alzheimer's disease, with behavioral disturbance, mild Status: Acute Assessment and plan: The patient apparently has significant dementia and is in a half-way. He really does not follow commands or respond that well. He is actually talking a little this morning. He looks like he is about the same neurologically. Current Visit: No (2) Bilateral pneumonia Status: Acute Assessment and plan: The patient mainly has a right lung infiltrate now. He had a bronchoscope yesterday and did fairly well. Cultures are pending. He seems to be breathing okay at present. Current Visit: Yes Qualifiers: Pneumonia type: due to unspecified organism Lung location: unspecified part of lung Qualified Code(s): J18.9 - Pneumonia, unspecified organism (3) Hypotension Status: Acute Assessment and plan: The patient has a much better blood pressure and is off pressors. Current Visit: Yes (4) Hypertension Status: Acute Assessment and plan: Patient has a significant history of hypertension Current Visit: No
[2017-01-13] MEDS: LEVOFLOXACIN INJ 750 MG in PREMIX 1 EACH IV SCH (12:10)
[2017-01-13] MEDS: SODIUM CHLORIDE 0.9% 1,000 ML IV SCH (13:49)
--- NOTE | 2017-01-13 14:39 | Hospitalist Progress Note ---
Assessment and Plan (1) Bilateral pneumonia Status: Acute Assessment and plan: Bronch today Pulmonary assisting Continue levaquin and zosyn Febrile overnight Current Visit: Yes Qualifiers: Pneumonia type: due to unspecified organism Lung location: unspecified part of lung Qualified Code(s): J18.9 - Pneumonia, unspecified organism (2) Dementia Status: Chronic Current Visit: No Qualifiers: Dementia type: Alzheimer's disease Alzheimer's disease onset: unspecified onset Dementia behavioral disturbance: with behavioral disturbance Qualified Code(s): G30.8 - Other Alzheimer's disease; F02.81 - Dementia in other diseases classified elsewhere with behavioral disturbance Hospitalist: Subjective Interval history: No acute events overnight. Patient completely unresponsive today. Febrile to 101 overnight. Exam - Constitutional Vitals: Period Temp Pulse Resp BP Sys/Bowling Pulse Ox Last 24 Hr 98.8 F-101.2 F 63-95 16-20 111-158/61-91 90-98 General appearance: normal weight - Head Head exam: Present: normocephalic, atraumatic - Eye Eye exam: Present: EOMI Pupils: Present: TYRONE - ENT ENT exam: Present: normal exam - Neck Neck exam: Present: normal inspection - Respiratory Respiratory exam: Present: clear to auscultation bilaterally. Absent: rhonchi, wheezes - Cardiovascular Cardiovascular exam: Present: regular rate and rhythm - GI/Abdominal GI/Abdominal exam: Present: normal bowel sounds, soft. Absent: tenderness, rebound - Extremities Exam Extremities exam: Present: normal inspection - Back Exam Back exam: Present: normal inspection - Neurological Exam Neurological exam: Present: other (eyes open, does not responde) Results - Labs CBC & BMP: 01/13/17 06:08 01/13/17 06:08
[2017-01-13] MEDS: LORazepam 2 MG/1 ML VIAL IV PRN ×2 (15:17→20:41)
[2017-01-13] MEDS: risperiDONE 0.5 MG TABLET PO SCH ×2 (15:17→20:42)
[2017-01-13] MEDS: SERTRALINE 100 MG TABLET PO SCH (20:42)
[2017-01-13] MEDS: MONTELUKAST 10 MG TABLET PO SCH (20:42)
[2017-01-14] MEDS: ALBUTEROL/IPRATROPIUM 3 ML NEB RESP TX SCH ×4 (00:25→20:02)
[2017-01-14] MEDS: PIPERACILLIN/TAZOBACTAM 3,375 MG in SODIUM CHLORIDE 0.9% 100 ML IV SCH ×3 (05:07→21:38)
[2017-01-14] MEDS: POTASSIUM CHLORIDE 20 MEQ TABLET PO SCH (08:48)
[2017-01-14] MEDS: MEMANTINE 10 MG TABLET PO SCH ×2 (08:48→20:26)
[2017-01-14] MEDS: CYANOCOBALAMIN 500 MCG TABLET PER TUBE SCH (08:48)
[2017-01-14] MEDS: MULTIVITAMIN (CENTRUM) TABLET PO SCH (08:48)
[2017-01-14] MEDS: DOCUSATE SODIUM 100 MG CAPSULE PO SCH (08:49)
[2017-01-14] MEDS: risperiDONE 0.5 MG TABLET PO SCH ×3 (08:49→20:26)
[2017-01-14] MEDS: ENOXAPARIN 40 MG/0.4 ML SYRINGE SUBCUT SCH (08:49)
[2017-01-14] MEDS: SODIUM CHLORIDE 0.9% 1,000 ML IV SCH (08:49)
[2017-01-14] MEDS: TAMSULOSIN 0.4 MG CAPSULE PO SCH (08:49)
[2017-01-14] MEDS: LANSOPRAZOLE ODT 30 MG TABLET PEG SCH (08:49)
[2017-01-14] MEDS: LORazepam 2 MG/1 ML VIAL IV PRN ×2 (08:50→20:27)
--- NOTE | 2017-01-14 09:44 | Pulmonology Progress Note ---
Pulmonary - PN: Subj Interval history: Patient is a 71-year-old black man that has severe dementia. He is in a fci and has tube feedings but may also get a pured diet. He is not very alert and looks like he could aspirate easily. He comes in with bilateral infiltrates and is being treated for pneumonia. He has been doing a little better lately and seems to be breathing comfortably. His family said he had a fairly good night. He will actually talk at times and other times he would not respond to you. He does not seem to be in any distress now. His chest x-ray is improving. He has fairly stable vital signs. Exam (Progress Note) - Constitutional Vitals: Period Temp Pulse Resp BP Sys/Bowling Pulse Ox Last 24 Hr 98.8 F-100.2 F 81-89 16-20 108-135/70-82 94-99 Exam: General appearance: normal weight, no acute distress (The patient is lying flat in bed and is not in any distress. He seems comfortable today. ) - Head Head exam: Present: normal inspection, normocephalic - Eye Eye exam: Present: other (He has wandering eye movements). Absent: scleral icterus Pupils: Present: TYRONE - ENT ENT exam: Present: normal exam - Neck Neck exam: Present: normal inspection. Absent: lymphadenopathy, thyromegaly - Respiratory Respiratory exam: Present: He has fair breath sounds bilaterally with some mild rhonchi bilaterally. He is breathing comfortably at present. - Cardiovascular Cardiovascular exam: Present: regular rate and rhythm. Absent: gallop, systolic murmur - GI/Abdominal GI/Abdominal exam: Present: normal bowel sounds, soft. Absent: distended, organomegaly, tenderness - Extremities Exam Extremities exam: Absent: calf tenderness, edema - Neurological Exam Neurological exam: Present: altered (He has significant dementia), other ( Patient apparently will respond and occasionally says a word or 2.) - Psychiatric Psychiatric exam: Absent: anxious - Skin Skin exam: Present: warm, dry Results - Labs CBC & BMP: 01/13/17 06:08 01/13/17 06:08 - Diagnostic Findings Procedure: Chest x-ray: image reviewed by me, report reviewed by me (Chest x- ray still shows a right lung infiltrate that is improving.) Assessment and Plan (1) Major neurocognitive disorder, due to Alzheimer's disease, with behavioral disturbance, mild Status: Acute Assessment and plan: The patient apparently has significant dementia and is in a fci. He really does not follow commands or respond that well. He will say a word or 2 at times. Mentally he is about the same. Current Visit: No (2) Bilateral pneumonia Status: Acute Assessment and plan: The patient mainly has a right lung infiltrate now. He had a bronchoscope yesterday and did fairly well. He has yeast on washings. Otherwise nothing is growing. He does seem to be breathing better. Current Visit: Yes Qualifiers: Pneumonia type: due to unspecified organism Lung location: unspecified part of lung Qualified Code(s): J18.9 - Pneumonia, unspecified organism (3) Hypotension Status: Acute Assessment and plan: The patient has a much better blood pressure and is off pressors. Current Visit: Yes (4) Hypertension Status: Acute Assessment and plan: Patient has a significant history of hypertension Current Visit: No
[2017-01-14] MEDS: FLUCONAZOLE INJ 200 MG in PREMIX 1 EACH IV SCH (10:46)
--- NOTE | 2017-01-14 11:53 | XRay Report ---
History: Pneumonia Date: 01/14/2017 Study: Chest x-ray AP portable Comparison exam: January 12, 2017 There is stable cardiomegaly. The mediastinal contour is unchanged in this patient status post prior median sternotomy. There is patchy and hazy infiltrate/edema in both lungs, right more than left, grossly similar. There is no increasing pleural effusion. Osseous structures are unchanged. Impression: Continued bilateral pneumonia without significant interval change PROCEDURE INTERPRETED AT [facility], [place] DEPARTMENT OF RADIOLOGY Final Report Signed by: Dr. Katlin Gallego
[2017-01-14] MEDS ORDERED: POTASSIUM CHLORIDE RIDER 10 MEQ in PREMIX 1 EACH IV PRN (14:12)
[2017-01-14] MEDS: POTASSIUM CHLORIDE 20 MEQ TABLET PO PRN (16:00)
--- NOTE | 2017-01-14 17:02 | Hospitalist Progress Note ---
Assessment and Plan (1) Bilateral pneumonia Status: Acute Assessment and plan: Bronch 01/12/17 Pulmonary assisting Continue levaquin and zosyn Current Visit: Yes Qualifiers: Pneumonia type: due to unspecified organism Lung location: unspecified part of lung Qualified Code(s): J18.9 - Pneumonia, unspecified organism (2) Dementia Status: Chronic Current Visit: No Qualifiers: Dementia type: Alzheimer's disease Alzheimer's disease onset: unspecified onset Dementia behavioral disturbance: with behavioral disturbance Qualified Code(s): G30.8 - Other Alzheimer's disease; F02.81 - Dementia in other diseases classified elsewhere with behavioral disturbance Hospitalist: Subjective Interval history: No acute events overnight. Patient sleeping comfortably. He became agitated yesterday, requiring ativan. Exam - Constitutional Vitals: Period Temp Pulse Resp BP Sys/Bowling Pulse Ox Last 24 Hr 98.8 F-99.7 F 75-91 16-20 103-135/62-82 90-98 General appearance: normal weight - Head Head exam: Present: normocephalic, atraumatic - Eye Eye exam: Present: EOMI Pupils: Present: TYRONE - ENT ENT exam: Present: normal exam - Neck Neck exam: Present: normal inspection - Respiratory Respiratory exam: Present: clear to auscultation bilaterally. Absent: wheezes - Cardiovascular Cardiovascular exam: Present: regular rate and rhythm - GI/Abdominal GI/Abdominal exam: Present: normal bowel sounds, soft. Absent: tenderness, rebound - Extremities Exam Extremities exam: Present: normal inspection - Back Exam Back exam: Present: normal inspection - Psychiatric Psychiatric exam: Absent: agitated, anxious - Skin Skin exam: Present: warm, intact Results - Labs CBC & BMP: 01/13/17 06:08 01/13/17 06:08
[2017-01-14] MEDS: SERTRALINE 100 MG TABLET PO SCH (20:26)
[2017-01-14] MEDS: MONTELUKAST 10 MG TABLET PO SCH (20:26)
[2017-01-14] MEDS: ACETAMINOPHEN 325 MG TABLET PER TUBE PRN (20:26)
[2017-01-15] MEDS: ALBUTEROL/IPRATROPIUM 3 ML NEB RESP TX SCH ×4 (00:06→19:56)
[2017-01-15] MEDS: SODIUM CHLORIDE 0.9% 1,000 ML IV SCH ×2 (05:16→20:56)
[2017-01-15] MEDS: PIPERACILLIN/TAZOBACTAM 3,375 MG in SODIUM CHLORIDE 0.9% 100 ML IV SCH ×3 (05:16→21:01)
[2017-01-15] MEDS: CYANOCOBALAMIN 500 MCG TABLET PER TUBE SCH (09:02)
[2017-01-15] MEDS: FLUCONAZOLE INJ 200 MG in PREMIX 1 EACH IV SCH (09:03)
[2017-01-15] MEDS: DOCUSATE SODIUM 100 MG CAPSULE PO SCH (09:03)
[2017-01-15] MEDS: ENOXAPARIN 40 MG/0.4 ML SYRINGE SUBCUT SCH (09:03)
[2017-01-15] MEDS: risperiDONE 0.5 MG TABLET PO SCH ×3 (09:03→20:57)
[2017-01-15] MEDS: TAMSULOSIN 0.4 MG CAPSULE PO SCH (09:03)
[2017-01-15] MEDS: POTASSIUM CHLORIDE 20 MEQ TABLET PO SCH (09:03)
[2017-01-15] MEDS: LANSOPRAZOLE ODT 30 MG TABLET PEG SCH (09:03)
[2017-01-15] MEDS: MULTIVITAMIN (CENTRUM) TABLET PO SCH (09:03)
[2017-01-15] MEDS: MEMANTINE 10 MG TABLET PO SCH ×2 (09:03→20:57)
--- NOTE | 2017-01-15 10:00 | Pulmonology Progress Note ---
Pulmonary - PN: Subj Interval history: Patient is a 71-year-old black man that has severe dementia. He is in a [facility] and has tube feedings but may also get a pured diet. He is not very alert and looks like he could aspirate easily. He comes in with bilateral infiltrates and is being treated for pneumonia. He has been doing a little better lately and seems to be breathing comfortably. He is talking a little more and says he feels better. He denies shortness of breath. He still has mild congestion. He seems to be better however. Exam (Progress Note) - Constitutional Vitals: Period Temp Pulse Resp BP Sys/Bowling Pulse Ox Last 24 Hr 98.4 F-100.2 F 60-96 16-20 103-126/62-83 90-98 Exam: General appearance: normal weight, no acute distress (The patient is lying flat in bed and is not in any distress. He seems comfortable today. He is talking more today.) - Head Head exam: Present: normal inspection, normocephalic - Eye Eye exam: Present: other (He has wandering eye movements). Absent: scleral icterus Pupils: Present: TYRONE - ENT ENT exam: Present: normal exam - Neck Neck exam: Present: normal inspection. Absent: lymphadenopathy, thyromegaly - Respiratory Respiratory exam: Present: He has fair breath sounds bilaterally with some mild rhonchi bilaterally. He looks like he is comfortable and in no distress. - Cardiovascular Cardiovascular exam: Present: regular rate and rhythm. Absent: gallop, systolic murmur - GI/Abdominal GI/Abdominal exam: Present: normal bowel sounds, soft. Absent: distended, organomegaly, tenderness - Extremities Exam Extremities exam: Absent: calf tenderness, edema - Neurological Exam Neurological exam: Present: altered (He has significant dementia), other ( Patient apparently will respond and occasionally says a word or 2.) - Psychiatric Psychiatric exam: Absent: anxious - Skin Skin exam: Present: warm, dry Results - Labs CBC & BMP: 01/13/17 06:08 01/13/17 06:08 Assessment and Plan (1) Major neurocognitive disorder, due to Alzheimer's disease, with behavioral disturbance, mild Status: Acute Assessment and plan: The patient apparently has significant dementia and is in a ch[facility]. He really does not follow commands or respond that well. He is a little more alert today and talking a little better. Current Visit: No (2) Bilateral pneumonia Status: Acute Assessment and plan: The patient mainly has a right lung infiltrate now. He had a bronchoscope and he has yeast on cultures. He seems to be breathing a little better. Current Visit: Yes Qualifiers: Pneumonia type: due to unspecified organism Lung location: unspecified part of lung Qualified Code(s): J18.9 - Pneumonia, unspecified organism (3) Hypotension Status: Acute Assessment and plan: The patient has a much better blood pressure and is off pressors. Current Visit: Yes (4) Hypertension Status: Acute Assessment and plan: Patient has a significant history of hypertension. He may be close to baseline now. Current Visit: No
[2017-01-15] MEDS: LORazepam 2 MG/1 ML VIAL IV PRN ×3 (11:12→20:58)
--- NOTE | 2017-01-15 15:59 | Hospitalist Progress Note ---
Assessment and Plan (1) Bilateral pneumonia Status: Acute Assessment and plan: Bronch 01/12/17 Pulmonary assisting Continue levaquin and zosyn He sounds a little more coarse today Current Visit: Yes Qualifiers: Pneumonia type: due to unspecified organism Lung location: unspecified part of lung Qualified Code(s): J18.9 - Pneumonia, unspecified organism (2) Dementia Status: Chronic Current Visit: No Qualifiers: Dementia type: Alzheimer's disease Alzheimer's disease onset: unspecified onset Dementia behavioral disturbance: with behavioral disturbance Qualified Code(s): G30.8 - Other Alzheimer's disease; F02.81 - Dementia in other diseases classified elsewhere with behavioral disturbance Hospitalist: Subjective Interval history: No acute events overnight. Patient talking more today. He tells me that he is ok. His is present at the time of my interview. Exam - Constitutional Vitals: Period Temp Pulse Resp BP Sys/Bowling Pulse Ox Last 24 Hr 97 F-100.2 F 60-96 16-20 107-126/68-83 90-100 General appearance: normal weight - Head Head exam: Present: normocephalic, atraumatic - Eye Eye exam: Present: EOMI Pupils: Present: TYRONE - ENT ENT exam: Present: normal exam - Neck Neck exam: Present: normal inspection - Respiratory Respiratory exam: Present: other (coarse breath sounds). Absent: wheezes - Cardiovascular Cardiovascular exam: Present: regular rate and rhythm - GI/Abdominal GI/Abdominal exam: Present: normal bowel sounds, soft. Absent: tenderness, rebound - Extremities Exam Extremities exam: Present: normal inspection - Back Exam Back exam: Present: normal inspection - Psychiatric Psychiatric exam: Absent: agitated, anxious - Skin Skin exam: Present: warm, intact Results - Labs CBC & BMP: 01/13/17 06:08 01/13/17 06:08
[2017-01-15] MEDS: ACETAMINOPHEN 325 MG TABLET PER TUBE PRN (20:57)
[2017-01-15] MEDS: MONTELUKAST 10 MG TABLET PO SCH (20:57)
[2017-01-15] MEDS: SERTRALINE 100 MG TABLET PO SCH (20:57)
[2017-01-15] MEDS: POTASSIUM CHLORIDE 20 MEQ TABLET PO PRN (23:15)
[2017-01-16] MEDS: ALBUTEROL/IPRATROPIUM 3 ML NEB RESP TX SCH ×4 (00:20→19:41)
[2017-01-16] MEDS: POTASSIUM CHLORIDE 20 MEQ TABLET PO PRN ×2 (01:21→03:28)
[2017-01-16] MEDS: PIPERACILLIN/TAZOBACTAM 3,375 MG in SODIUM CHLORIDE 0.9% 100 ML IV SCH (05:33)
[2017-01-16 05:56] LABS: Calcium 8.1 MG/DL (8.5-10.1); Magnesium 2.5 MG/DL (1.8-2.4); Osmolality,Calculated 279.3 MOS/KG (273-304); Potassium 4.5 MMOL/L (3.5-5.1)
[2017-01-16 06:02] LABS: Calcium 8.1 MG/DL (8.5-10.1); Magnesium 2.5 MG/DL (1.8-2.4); Osmolality,Calculated 279.3 MOS/KG (273-304); Phosphorous 3.3 MG/DL (2.5-4.9); Potassium 4.5 MMOL/L (3.5-5.1); Prealbumin 8.3 MG/DL (20-40)
--- NOTE | 2017-01-16 08:42 | Pulmonology Progress Note ---
Pulmonary - PN: Subj Interval history: Patient is a 71-year-old black man that has severe dementia. He is in a [facility] and has tube feedings but may also get a pured diet. He is not very alert and looks like he could aspirate easily. He comes in with bilateral infiltrates and is being treated for pneumonia. He has done fairly well the past few days. He has an occasional cough but is not having any respiratory distress. He is lying flat in bed and breathing comfortably. His maximum temperature has been 99.4. He is tolerating his tube feedings fairly well. Neurologically he is probably at baseline. Exam (Progress Note) - Constitutional Vitals: Period Temp Pulse Resp BP Sys/Bowling Pulse Ox Last 24 Hr 97 F-99.4 F 74-96 16-20 124-153/74-87 93-100 Exam: General appearance: normal weight, no acute distress (The patient is lying flat in bed and is not in any distress. He seems comfortable today. He is talking more today.) - Head Head exam: Present: normal inspection, normocephalic - Eye Eye exam: Present: other (He has wandering eye movements). Absent: scleral icterus Pupils: Present: TYRONE - ENT ENT exam: Present: normal exam - Neck Neck exam: Present: normal inspection. Absent: lymphadenopathy, thyromegaly - Respiratory Respiratory exam: Present: He has fair breath sounds bilaterally is moving air fairly well. He has some minimal rhonchi present. - Cardiovascular Cardiovascular exam: Present: regular rate and rhythm. Absent: gallop, systolic murmur - GI/Abdominal GI/Abdominal exam: Present: normal bowel sounds, soft. Absent: distended, organomegaly, tenderness. He has a PEG tube in place. - Extremities Exam Extremities exam: Absent: calf tenderness, edema - Neurological Exam Neurological exam: Present: altered (He has significant dementia), other ( Patient apparently will respond and occasionally says a word or 2. His neuro status is about the same.) - Psychiatric Psychiatric exam: Absent: anxious - Skin Skin exam: Present: warm, dry Results - Labs CBC & BMP: 01/13/17 06:08 01/16/17 05:01 Assessment and Plan (1) Major neurocognitive disorder, due to Alzheimer's disease, with behavioral disturbance, mild Status: Acute Assessment and plan: The patient apparently has significant dementia and is in a [facility]. He really does not follow commands or respond that well. He is a little more alert today and talking a little better. He is probably at baseline now. Current Visit: No (2) Bilateral pneumonia Status: Acute Assessment and plan: The patient mainly has a right lung infiltrate now. He had a bronchoscope and he has yeast on cultures. He is breathing comfortably. He can probably go to oral antibiotics. Current Visit: Yes Qualifiers: Pneumonia type: due to unspecified organism Lung location: unspecified part of lung Qualified Code(s): J18.9 - Pneumonia, unspecified organism (3) Hypotension Status: Acute Assessment and plan: The patient has a much better blood pressure and is off pressors. Current Visit: Yes (4) Hypertension Status: Acute Assessment and plan: Patient has a significant history of hypertension. He may be close to baseline now. He appears to be hemodynamically stable. Current Visit: No
[2017-01-16] MEDS ORDERED: FUROSEMIDE 40 MG/4 ML VIAL IV ONE (08:44)
[2017-01-16] MEDS: MEMANTINE 10 MG TABLET PO SCH ×2 (09:57→21:59)
[2017-01-16] MEDS: LANSOPRAZOLE ODT 30 MG TABLET PEG SCH (09:57)
[2017-01-16] MEDS: DOCUSATE SODIUM 100 MG CAPSULE PO SCH (09:57)
[2017-01-16] MEDS: TAMSULOSIN 0.4 MG CAPSULE PO SCH (09:57)
[2017-01-16] MEDS: CYANOCOBALAMIN 500 MCG TABLET PER TUBE SCH (09:57)
[2017-01-16] MEDS: risperiDONE 0.5 MG TABLET PO SCH ×3 (09:57→21:59)
[2017-01-16] MEDS: MULTIVITAMIN (CENTRUM) TABLET PO SCH (09:57)
[2017-01-16] MEDS: POTASSIUM CHLORIDE 20 MEQ TABLET PO SCH (09:57)
[2017-01-16] MEDS: ENOXAPARIN 40 MG/0.4 ML SYRINGE SUBCUT SCH (09:58)
[2017-01-16] MEDS: AMOXICILLIN/CLAV ES 600 125 ML/BOTTLE PO SCH ×2 (10:11→21:58)
[2017-01-16] MEDS: FLUCONAZOLE 40 MG/ML 35 ML/BOTTLE PO SCH (10:11)
--- NOTE | 2017-01-16 12:09 | Hospitalist Progress Note ---
Assessment and Plan (1) Bilateral pneumonia Status: Acute Assessment and plan: Bronch 01/12/17 Pulmonary assisting Changed to aztreonam and fluconazole via peg He sounds better today Possible discharge tomorrow Current Visit: Yes Qualifiers: Pneumonia type: due to unspecified organism Lung location: unspecified part of lung Qualified Code(s): J18.9 - Pneumonia, unspecified organism (2) Dementia Status: Chronic Current Visit: No Qualifiers: Dementia type: Alzheimer's disease Alzheimer's disease onset: unspecified onset Dementia behavioral disturbance: with behavioral disturbance Qualified Code(s): G30.8 - Other Alzheimer's disease; F02.81 - Dementia in other diseases classified elsewhere with behavioral disturbance Hospitalist: Subjective Interval history: No acute events overnight. Sleeping comfortably. Changed to po medications today , possible discharge back to his retirement tomorrow if tolerates well. Exam - Constitutional Vitals: Period Temp Pulse Resp BP Sys/Bowling Pulse Ox Last 24 Hr 97.6 F-99.4 F 74-96 16-24 124-153/74-87 93-98 General appearance: normal weight - Head Head exam: Present: normocephalic, atraumatic - Eye Eye exam: Present: EOMI Pupils: Present: TYRONE - ENT ENT exam: Present: normal exam - Neck Neck exam: Present: normal inspection - Respiratory Respiratory exam: Present: clear to auscultation bilaterally - Cardiovascular Cardiovascular exam: Present: regular rate and rhythm - GI/Abdominal GI/Abdominal exam: Present: normal bowel sounds, soft. Absent: tenderness, rebound - Extremities Exam Extremities exam: Present: normal inspection - Back Exam Back exam: Present: normal inspection - Neurological Exam Neurological exam: Present: alert, oriented X3 - Psychiatric Psychiatric exam: Present: normal affect, normal mood - Skin Skin exam: Present: warm, intact Results - Labs CBC & BMP: 01/13/17 06:08 01/16/17 09:18
[2017-01-16] MEDS: ZINC OXIDE 16% PASTE 57 GM TUBE TOP SCH ×2 (12:59→22:15)
[2017-01-16] MEDS: MONTELUKAST 10 MG TABLET PO SCH (21:59)
[2017-01-16] MEDS: SERTRALINE 100 MG TABLET PO SCH (21:59)
[2017-01-17] MEDS: ALBUTEROL/IPRATROPIUM 3 ML NEB RESP TX SCH ×2 (00:13→07:52)
[2017-01-17] MEDS: FLUCONAZOLE 40 MG/ML 35 ML/BOTTLE PO SCH (10:01)
[2017-01-17] MEDS: AMOXICILLIN/CLAV ES 600 125 ML/BOTTLE PO SCH (10:02)
[2017-01-17] MEDS: MULTIVITAMIN (CENTRUM) TABLET PO SCH (10:03)
[2017-01-17] MEDS: CYANOCOBALAMIN 500 MCG TABLET PER TUBE SCH (10:03)
[2017-01-17] MEDS: ENOXAPARIN 40 MG/0.4 ML SYRINGE SUBCUT SCH (10:03)
[2017-01-17] MEDS: DOCUSATE SODIUM 100 MG CAPSULE PO SCH (10:04)
[2017-01-17] MEDS: LANSOPRAZOLE ODT 30 MG TABLET PEG SCH (10:04)
[2017-01-17] MEDS: risperiDONE 0.5 MG TABLET PO SCH (10:04)
[2017-01-17] MEDS: TAMSULOSIN 0.4 MG CAPSULE PO SCH (10:04)
[2017-01-17] MEDS: POTASSIUM CHLORIDE 20 MEQ TABLET PO SCH (10:04)
[2017-01-17] MEDS: MEMANTINE 10 MG TABLET PO SCH (10:04)
[2017-01-17] MEDS: ZINC OXIDE 16% PASTE 57 GM TUBE TOP SCH (10:05)
--- NOTE | 2017-01-17 10:37 | Discharge Summary ---
<Markus Cardoza - Last Filed: 01/17/17 10:28> Hospital Course - Hospital Course Hospital Course: Is a 71-year-old male that presented to [facility] as a direct admission from [facility] in [facility] for the further evaluation of pneumonia. Patient has a medical history significant for hypertension, Alzheimer's disease, schizophrenia, dementia, coronary artery disease, dysphasia, anxiety, anemia, vitamin D deficiency, hyperlipidemia, major depressive disorder with psychotic symptoms, displaced fracture of the surgical neck of the left humerus, gastroesophageal reflux disease, and chronic pain. Patient has surgical history significant for coronary artery bypass graft , and left humerus fracture repair and percutaneous gastrostomy tube placement. The patient currently resides at [facility] in [place], [place] in a long-term care facility. Apparently, the patient was found to be unresponsive at the snf on the day of presentation and was subsequently transferred to the hospital for further evaluation. The patient was seen and evaluated and was noted to have bilateral pneumonia and was grossly hypotensive. The patient was placed in the critical care setting, multiple fluid boluses were given, and dopamine was started. The hospitalist group was contacted regarding transfer to [facility] for higher level of care. The patient was subsequently admitted to the critical care setting for further evaluation. Empiric antibiotics, gentle rehydration, and inotropic agents were continued. Due to the severity of the patient's pneumonia, a pulmonary consultation was requested. Enteral feedings were resumed to meet nutritional requirements. The patient was seen and evaluated by pulmonology and recommendations were given. The patient condition slowly improved and the patient was subsequently transferred to the general medical surgical floor on January 11, 2017. On January, the patient underwent diagnostic bronchoscopy with therapeutic lavage in which multiple mucous plugs and retained secretions were noted. Bronchial washings were sent for analysis. Microbiology report was significant for Cher albicans in the bronchial wash and antifungal agents were initiated. The patient condition slowly improved and the patient was subsequently transferred to the general medical surgical floor on January 11, 2017. The patient's condition has improved. He has not experienced any significant overnight events. Today, we feel that he is indeed appropriate for transfer back to [facility] in [place], [place] for continuation of care. Discharge Plan - Discharge Data Disposition: Disch/Xfer to Snf - Discharge Medications New Fluconazole Liquid [Diflucan Liquid] 200 mg PO DAILY #30 ml Amoxicillin/Clav Liquid [Augmentin Es Liquid] 300 mg PO Q12HR #15 ml Continue Atorvastatin [Lipitor] 1 tablet PO DAILY Carvedilol 1 tablet PO BID Cholecalciferol (Vitamin D3) [Vitamin D3 Chew Tab] 1 tablet PER TUBE DAILY Cyanocobalamin (Vitamin B-12) [Vitamin B-12] 1,000 mcg PER TUBE DAILY Montelukast Tab [Singulair Tab] 10 mg PO BEDTIME Docusate Sodium Cap [Colace Cap] 100 mg PO DAILY Multivitamin [One Daily] 1 tablet PO DAILY Tamsulosin [Flomax] 1 capsule PO DAILY Potassium Chloride Cap/Tab [K Dur] 20 meq PO DAILY Famotidine 20 mg PO DAILY Sertraline [Zoloft] 100 mg PO BEDTIME risperiDONE [Risperidone] 0.5 mg PO TID Memantine [Namenda] 10 mg PO BID #60 tablet Tramadol HCl [Tramadol Tab] 50 mg PO BID Gabapentin Cap/Tab [Neurontin Cap/Tab] 400 mg PO TID HYDROcodone/ACETAMIN 5-325 [Elloree 5-325] 1 tablet PO Q6HR PRN #60 tablet PRN Reason: Pain Zaleplon [Sonata] 5 mg PO BEDTIME PRN #30 capsule PRN Reason: Sleep Ferrous Sulfate 325 mg PO BID LORazepam TAB [Ativan Tab] 0.5 mg PO TID #45 tablet QUEtiapine [SEROquel] 25 mg PO BID tablet busPIRone [Buspar] 15 mg PO BID tablet Discontinued Amlodipine Besylate 5 mg PO DAILY clonazePAM TAB [KlonoPIN] 0.5 mg PO TID - Follow Up or Referral - Forms/Instructions Exam - Constitutional Vitals: Period Temp Pulse Resp BP Sys/Bowling Pulse Ox Last 24 Hr 97.8 F-100.1 F 62-88 16-24 95-161/60-84 91-100 Discharge Results Procedures and tests throughout hospitalization: Pending Orders 01/12/17 08:36 AFB Culture/Smears Routine Fungal Culture w/ Prep Routine Labs on day of discharge: Preliminary micro results at discharge 01/12/17 08:36 Mycobacterial Culture - Preliminary Bronchial Washings No AFB isolated at 1 week 01/12/17 08:36 Fungal Culture - Preliminary Bronchial Washings Cher albicans DS: Provider Date of admission: 01/09/17 05:37 Primary care physician: . No PCP Attending physician on admission: Sukhdeep Monroy MD Consults: 01/09/17 06:17 Consult to Physician [CONS] Routine Comment: pneumonia in a nh patient Consulting Provider: Pierre Dawson Consult to Specialist Group: Pulmonology When should Consulting Provider be notified: In am Person Notified: aware 01/09/17 06:35 Consult to Dietitian [CONS] Routine Reason for Dietitian: TF-Initiate/Manage Discharging clinician: Markus Cardoza CNP <Shreya Brady - Last Filed: 01/17/17 11:00> Hospital Course - Time spent with patient Time with patient DS: Greater than 30 minutes (45) Diagnosis - Discharge Diagnosis (1) Bilateral pneumonia Status: Resolved (2) Dementia Status: Chronic Discharge Plan - Discharge Data Condition at Discharge: Stable Discharge Diet: heart healthy Activity: as per physical therapy Exam - Constitutional General appearance: normal weight - Head Head exam: Present: normocephalic, atraumatic - Eye Eye exam: Present: EOMI Pupils: Present: TYRONE - ENT ENT exam: Present: normal exam - Neck Neck exam: Present: normal inspection - Respiratory Respiratory exam: Present: clear to auscultation bilaterally. Absent: wheezes - Cardiovascular Cardiovascular exam: Present: regular rate and rhythm - GI/Abdominal GI/Abdominal exam: Present: normal bowel sounds, soft - Extremities Exam Extremities exam: Present: normal inspection - Back Exam Back exam: Present: normal inspection - Neurological Exam Neurological exam: Present: alert, oriented X3 - Psychiatric Psychiatric exam: Present: normal affect, normal mood - Skin Skin exam: Present: warm, intact
--- NOTE | 2017-01-17 11:16 | Pulmonology Progress Note ---
Pulmonary - PN: Subj Interval history: Patient is a 71-year-old black man that has severe dementia. He is in a fpc and has tube feedings but may also get a pured diet. He is not very alert and looks like he could aspirate easily. He comes in with bilateral infiltrates and is being treated for pneumonia. He has done fairly well the past few days. He has an occasional cough but is not having any respiratory distress. He is lying flat in bed and breathing comfortably. He once again had a fairly good night and his breathing is better. He seems to be moving air okay. He is getting his PEG tube feedings okay. He will probably go back to the fpc today. Exam (Progress Note) - Constitutional Vitals: Period Temp Pulse Resp BP Sys/Bowling Pulse Ox Last 24 Hr 97.8 F-100.1 F 62-88 16-24 95-161/60-84 91-100 Exam: General appearance: normal weight, no acute distress (The patient is lying flat in bed and is not in any distress. He seems comfortable today. He is talking more today. He certainly appears stable.) - Head Head exam: Present: normal inspection, normocephalic - Eye Eye exam: Present: other (He has wandering eye movements). Absent: scleral icterus Pupils: Present: TYRONE - ENT ENT exam: Present: normal exam - Neck Neck exam: Present: normal inspection. Absent: lymphadenopathy, thyromegaly - Respiratory Respiratory exam: Present: He has fair breath sounds bilaterally is moving air fairly well. His lungs sound reasonably clear today. - Cardiovascular Cardiovascular exam: Present: regular rate and rhythm. Absent: gallop, systolic murmur - GI/Abdominal GI/Abdominal exam: Present: normal bowel sounds, soft. Absent: distended, organomegaly, tenderness. He has a PEG tube in place. - Extremities Exam Extremities exam: Absent: calf tenderness, edema - Neurological Exam Neurological exam: Present: altered (He has significant dementia), other ( Patient apparently will respond and occasionally says a word or 2. His neuro status is about the same.) - Psychiatric Psychiatric exam: Absent: anxious - Skin Skin exam: Present: warm, dry Results - Labs CBC & BMP: 01/13/17 06:08 01/16/17 09:18 Assessment and Plan (1) Major neurocognitive disorder, due to Alzheimer's disease, with behavioral disturbance, mild Status: Acute Assessment and plan: The patient apparently has significant dementia and is in a fpc. He is a little more alert and talking some. He appears to be stable and will go back to the fpc. Current Visit: No (2) Bilateral pneumonia Status: Resolved Assessment and plan: The patient mainly has a right lung infiltrate now. He had a bronchoscope and he has yeast on cultures. He is breathing comfortably. He can probably go to oral antibiotics. At present he is clinically better and his breathing is better. Current Visit: Yes Qualifiers: Pneumonia type: due to unspecified organism Lung location: unspecified part of lung Qualified Code(s): J18.9 - Pneumonia, unspecified organism (3) Hypotension Status: Acute Assessment and plan: The patient has a much better blood pressure and is off pressors. Current Visit: Yes (4) Hypertension Status: Acute Assessment and plan: Patient has a significant history of hypertension. He may be close to baseline now. He appears to be hemodynamically stable. Current Visit: No
[2017-01-17 12:39] VITALS: BP 117/69
[2017-01-17] MEDS ORDERED: BISACODYL 10 MG SUPP RECTAL ONE (13:01)
== END 2017-01-17 14:12 | DRG 853 ==
LOC: N.ICU 05:37 → SUATTDRO 05:37 → N.5E 01-11 14:42
PROVIDERS: ADMIT Internal Medicine; ATTEND Internal Medicine

== ENCOUNTER 2017-01-26 13:36 | Inpatient (IN) ==
[2017-01-26] MEDS ORDERED: SODIUM CHLORIDE 0.9% 500 ML IV STA (13:51)
[2017-01-26] MEDS ORDERED: ALBUTEROL 2.5 MG/3 ML NEB RESP TX STA (13:51)
[2017-01-26] MEDS ORDERED: methylPREDNISolone SOD SUC 125 MG/2 ML VIAL IV STA (13:51)
[2017-01-26] MEDS ORDERED: PIPERACILLIN/TAZOBACTAM 3,375 MG in SODIUM CHLORIDE 0.9% 100 ML IV STA ×2 (13:51→13:56)
--- NOTE | 2017-01-26 14:02 | Emergency Department Note ---
David Ceballos Manpreet, am scribing for, and in the presence of, Donovan Jorge MD 13: 54. Ania Ceballos James D, MD, personally performed the services described in this documentation, ascribed by Calixto Hernandez in my presence, and it is both accurate and complete 356 . Arrival - Arrival Stated Complaint: resp distress Mode of Arrival: Stretcher Limitations: Altered Mental Status Source: EMS - History of Present Illness HPI Narrative: Pt is a 72 y/o male who is brought to the ED via EMS from [facility]. Pt was brought to the ED with CPAP machine with obvious gurgling. Pt was recently Dx'ed with PNA at [place]. Pt has a GCS score of 12 with PMHx of Alzheimer's and HTN. Pt's family wanted the pt to go to [facility] but EMS was unable to take the patient that for due to his respiratory distress. Patient has had difficulty managing his secretions. Pt's [facility] recommended hospice, according to EMS. No other pains/complaints reported to the ED. Onset (ago): hour(s) Consistency: constant Severity: moderate Allergies/Adverse Reactions: Allergies Allergy/AdvReac Type Severity Reaction Status Date / Time olanzapine [From Zyprexa] Allergy Unknown/Unable Verified 01/26/17 14:03 to obtain Home Medications: Home Medications Medication Instructions Recorded Confirmed Type Atorvastatin [Lipitor] 1 tablet PO DAILY 01/09/15 01/09/17 History Carvedilol 1 tablet PO BID 01/09/15 01/09/17 History Cholecalciferol (Vitamin D3) 1 tablet PER TUBE DAILY 01/09/15 01/09/17 History [Vitamin D3 Chew Tab] Cyanocobalamin (Vitamin B-12) 1,000 mcg PER TUBE DAILY 01/09/15 01/09/17 History [Vitamin B-12] Docusate Sodium Cap [Colace Cap] 100 mg PO DAILY 01/09/15 01/09/17 History Montelukast Tab [Singulair Tab] 10 mg PO BEDTIME 01/09/15 01/09/17 History Multivitamin [One Daily] 1 tablet PO DAILY 01/09/15 01/09/17 History Tamsulosin [Flomax] 1 capsule PO DAILY 01/10/15 01/09/17 History Famotidine 20 mg PO DAILY 01/12/15 01/09/17 History Potassium Chloride Cap/Tab [K Dur] 20 meq PO DAILY 01/12/15 01/09/17 History Memantine [Namenda] 10 mg PO BID #60 tablet 01/27/15 01/09/17 Rx Ferrous Sulfate 325 mg PO BID 07/19/16 01/09/17 History Gabapentin Cap/Tab [Neurontin 400 mg PO TID 07/19/16 01/09/17 History Cap/Tab] Tramadol HCl [Tramadol Tab] 50 mg PO BID 07/19/16 01/09/17 History HYDROcodone/ACETAMIN 5-325 [[place] 1 tablet PO Q6HR PRN #60 tablet 07/31/1601/09 Rx 5-325] LORazepam TAB [Ativan Tab] 0.5 mg PO TID #45 tablet 07/31/16 01/09/17 Rx QUEtiapine [SEROquel] 25 mg PO BID tablet 07/31/16 01/09/17 Rx Zaleplon [Sonata] 5 mg PO BEDTIME PRN #30 capsule 07/31/16 01/09/17 Rx busPIRone [Buspar] 15 mg PO BID tablet 07/31/16 01/09/17 Rx Donepezil [Aricept] 10 mg PO BEDTIME #30 tablet 01/09/17 01/09/17 Rx Sertraline [Zoloft] 100 mg PO BEDTIME 01/09/17 01/09/17 History risperiDONE [Risperidone] 0.5 mg PO TID 01/09/17 01/09/17 History Amoxicillin/Clav Liquid [Augmentin 300 mg PO Q12HR #15 ml 01/17/17 Rx Es Liquid] Fluconazole Liquid [Diflucan 200 mg PO DAILY #30 ml 01/17/17 Rx Liquid] Review of System - Review of System ROS unobtainable: due to mental status Medical,Surgical,& Family Hx - Medical History Cardio: History of: Cerebrovascular Disease ( reports unknown), CAD, Hypertension Psychological: History of: Behavior Problems (pulled Iv out of arm, hitting others with aggression), Psychiatric Problems (Delusions-believes he is still able to work at times and he at work) No history of: Violent Behavior Neurology: History of: Cerebrovascular Accident, Dementia No history of: Seizures Endocrine: History of: Dyslipidemia No history of: Diabetes Mellitus (IDDM) Genitourinary: History of: Problems (incontinet) Gastrointestinal: History of: GI Problems (PEG/ dysphagia) Musculoskeletal: History of: Musculoskeletal Problems (poor mobility) - Surgical History Cardiac Surgeries: Sugical HX of: Cardiac Surgery Thoracic Surgeries: Patient denies;: Organ Transplant - Social History Smoking Status: Unknown if ever smoked Exam Vital Signs: Vital Signs Temperature 99.8 F H 01/26/17 13:52 Pulse Rate 103 H 01/26/17 14:43 Respiratory Rate 15 01/26/17 15:19 Blood Pressure 187/113 01/26/17 13:52 O2 Sat by Pulse Oximetry 100 01/26/17 14:43 GENERAL: This is a chronically and acutely ill-appearing black male in moderate to severe respiratory distress. VITAL SIGNS: Reviewed HEENT: Head is atraumatic and normocephalic. Pupils are equal round react to light. Extraocular movements are intact. Patient has tube feeding present in the posterior oropharynx. NECK: Neck is soft and supple without tenderness. There are no masses. There is no lymphadenopathy. LUNGS: Lungs are clear to auscultation. Chest rises symmetrically. There is no chest wall tenderness. CV: Heart is regular rate and rhythm without murmurs rubs or gallops. ABDOMEN: Abdomen is soft, nontender to palpation. There are no abdominal abnormal masses palpated. There is no organomegaly. Bowel sounds are present and active. SKIN: Skin is warm and dry. No rash. EXTREMITIES: There is no pedal edema. NEUROLOGIC: Awake, nonverbal. Cranial nerves II through XII are intact. Patient moves right upper extremity but does not seem to move his left upper extremity. Patient has flexion contractures of the lower extremities bilaterally and does not move lower extremities. Course Course Narrative: Patient was given IV fluids in the emergency department along with Zosyn. He was intubated immediately upon arrival due to his respiratory distress. Patient was suctioned vigorously. He had initial ventilation orders along with sedation of IV propofol for mechanical ventilation. Explained to the family that patient will chronically aspirate due to his neurologic status. The does not seem to understand. - Consultations Consultation #1: Discussed with hospitalist. Patient will be admitted to their service. Time: 15:29 Procedures - ABG Interpretation ABG Interpretation 1 Interpretation: normal - Intubation Time out performed: Yes sedative: Etomidate Mg Given: 20 paralytic: Vecuronium Mg Given: 10 Laryngoscope: fiber optic video scope ET Tube Size: 7.5 ET Tube Uncuffed: No Tube Secured Depth (cm): 23 Tube Secured Location: teeth Tube Placement Confirmation: visualized tube passing through cords, equal breath sounds bilaterally, no breath sounds over epigastrium, confirmation detector color change Patient Tolerated Procedure: well Intubation Complications: none Additional Comments: At the time of intubation patient was noted to have tube feeding coming from below the cords. This was suctioned vigorously. Once endotracheal tube was placed the tube was suctioned vigorously and more tube feeding was suctioned from the endotracheal tube. Prior to intubation the patient was noted to have a large amount of tube feeding in the posterior oropharynx, on the epiglottis, in the vallecula, and below the cords. Results - Labs CBC & BMP: 01/26/17 14:04 01/26/17 14:04 Lab Results: I have reviewed the patients labs Labs: Laboratory Tests 01/26/17 13:51 ABG pH 7.446 ABG pCO2 39.7 ABG pO2 372.0 H ABG HCO3 27.3 H ABG Total CO2 23.3 ABG O2 Saturation 99.6 ABG Base Excess 3.2 H - EKG EKG results: interpreted by ERMD - Impressions EKG: Sinus tachycardia with a rate of 103, left bundle branch block, no further interpretation possible. - Diagnostic Findings Procedure: Chest x-ray: image reviewed by me (Endotracheal tube present in the trachea above the aliya. Increased pulmonary markings bilaterally.) Critical Care Time Critical Care Time: Yes Total Critical Care Time: 60 Disposition Clinical Impression: Aspiration pneumonia, Acute respiratory failure, Alzheimer's type dementia Disposition: Still a Patient Condition: Critical
[2017-01-26] MEDS: PROPOFOL 1,000 MG/100 ML BOTTLE IV SCH ×2 (14:05→19:28)
[2017-01-26] MEDS: SODIUM CHLORIDE 0.9% 1,000 ML IV SCH (14:05)
[2017-01-26] MEDS ORDERED: PIPERACILLIN/TAZOBACTAM 3,375 MG VIAL IV ONE (14:24)
[2017-01-26] MEDS ORDERED: methylPREDNISolone SOD SUC 125 MG/2 ML VIAL ONE (14:25)
[2017-01-26 14:26] LABS: Basophils % 0.4 % (0.0-0.8); Eosinophils # 0.1 10*3/uL (0.0-0.87); Eosinophils % 1.4 % (0.00-10.9); Hematocrit 46.9 VOL% (42.0-52.0); Hemoglobin 15.4 GM/DL (14.0-18.0); Immature Granulocytes % 0.2 %; Immature Granulocytes Absolute 0.01 #; Lymphocytes % 17.4 % (21.2-54.2); Mean Corpuscular HGB Conc 32.8 GM/DL (32-36); Mean Corpuscular Hemoglobin 29 PG (27-34); Mean Corpuscular Volume 89.3 FL (87-102); Mean Platelet Volume 10.2 FL (9.6-12.0); Monocytes # 0.5 10*3/uL (0.11-0.8); Monocytes % 8.2 % (1.7-12.7); Neutrophils # 4.1 10*3/uL (1.4-7.4); Neutrophils % 72.4 % (38.7-73.9); Platelet Count 271 T/CUMM (130-400); Red Blood Count 5.25 MC/CUMM (3.8-5.5); Red Cell Distribution Width 13.3 % (9.3-17.3); White Blood Count 5.6 T/CUMM (4-12)
--- NOTE | 2017-01-26 14:29 | XRay Report ---
Portable chest. Indication: Shortness of breath. Comparison: January 14, 2017. The heart is normal in size. Post median sternotomy. The distal tip of an endotracheal tube is in satisfactory position. Infiltrates have greatly improved, small amount of infiltrate persists bilaterally, particularly in the right upper lobe and left lower lobe. No pneumothorax. No pleural effusion. Impression: Interval improvement. PROCEDURE INTERPRETED AT [facility] DEPARTMENT OF RADIOLOGY Final Report Signed by: Dr. Jessica Gauthier
[2017-01-26 14:31] LABS: ABG Base Excess 3.2 MMOL/L (-2.5-2.5); ABG HCO3 27.3 MMOL/L (20-26); ABG Oxygen Saturation 99.6 % (95-100); ABG PCO2 39.7 MM HG (35-48); ABG PH 7.446 (7.35-7.45); ABG TCO2 23.3 MMOL/L (23-27)
[2017-01-26 14:45] LABS: Barbiturates Screen,Urine Negative (Negative); Benzodiazepines Screen,Urine Negative (Negative); Cannabinoid Screen,Urine Negative (Negative); Opiate Screen,Urine Negative (Negative); Phencyclidine Screen,Urine Negative (Negative)
[2017-01-26 14:46] LABS: Apearance,Urine CLEAR (Clear); Bacteria,Urine Occasional /HPF (Few); Bilirubin,Urine Negative (Negative); Blood, Urine Negative (Negative); Glucose,Urine (UA) Negative (Negative); INR 1.1; Ketones,Urine Negative (Negative); Mucus,Urine Occasional /LPF (Occasional); Nitrite,Urine Negative (Negative); PT Patient Result 11.7 SECS; Partial Thromboplastin Time 22.9 SECS (0-40); Protein,Urine Negative; RBC,Urine 4 /HPF (0-4); Urine Color Yellow (Yellow); Urine Specific Gravity 1.014 (1.001-1.035); Urine Urobilinogen < 2.0 EU/DL (0.2-1.0); WBC,Urine 1 /HPF (0-6)
[2017-01-26 15:04] LABS: Bilirubin,Total 0.7 MG/DL (0.2-1.0); Calcium 9.4 MG/DL (8.5-10.1); Osmolality,Calculated 272.8 MOS/KG (273-304); Potassium 4.9 MMOL/L (3.5-5.1); Total Protein 8.9 G/DL (6.4-8.3)
[2017-01-26 15:05] LABS: Troponin I Only 0.166 NG/ML (0.00-0.045)
--- NOTE | 2017-01-26 16:27 | Hospitalist History & Physical ---
<Sakshi Byrd - Last Filed: 01/26/17 16:27> Assessment and Plan (1) Aspiration pneumonitis Status: Acute Assessment and plan: Admit to ICU. IV antibiotics. IVF for hydration. Consult pulmonary for rec. Close monitoring of secretions. Current Visit: Yes (2) Acute respiratory failure Status: Acute Assessment and plan: Pt will be admitted to intensive care unit. Pt. will be closely monitored. Pt. is on vent. Consult pulmonary for management. ABGs in the am. CXR in am. Current Visit: Yes (3) Hypertension Status: Acute Assessment and plan: prn Labetolol Current Visit: No (4) Alzheimer's type dementia Status: Chronic Current Visit: Yes History of Present Illness Chief complaint: aspiration pneumonia History of present illness: Mr. Augustine is a 72 year old black male with a history of severe dementia, CVA, hypertension, NSTEMI, pneumonia, and dysphagia (has peg tube) who presented to the ED via EMS from [facility] for further evaluation. Pt's and niece are present at the bedside but are poor historians. Information obtained has been retrieved from chart review and notes. Staff at local [facility] noted patient was having trouble with breathing and increased secretions. EMS was alerted for transfer. They also recommended hospice to EMS. Pt. was recently discharged from [place] on 01/17 after a week stay for treatment of bilateral pneumonia. Pt. was seen and examined in ER bed 10. CXR was performed and in comparison to last CXR, there was improvement. Due to pt's secretion suctioned by nurses in ED, it is suspected that patient aspirated. Pt's case has been discussed with Dr. Navarro and pt will be admitted to the hospitalist program for further treatment. Pt. will be placed in ICU for close monitoring. Home Medications Medication Instructions Recorded Confirmed Type Atorvastatin [Lipitor] 40 mg PER TUBE 0900 01/09/15 01/26/17 History Carvedilol 3.125 mg PER TUBE BID 01/09/15 01/26/17 History Cholecalciferol (Vitamin D3) 1,000 unit PER TUBE DAILY 01/09/15 01/26/17 History [Vitamin D3 Chew Tab] Cyanocobalamin (Vitamin B-12) 1,000 mcg PER TUBE 0900 01/09/15 01/26/17 History [Vitamin B-12] Docusate Sodium Cap [Colace Cap] 100 mg PER TUBE 0900 01/09/15 01/26/17 History Montelukast Tab [Singulair Tab] 10 mg PER TUBE BEDTIME 01/09/15 01/26/17 History Multivitamin [One Daily] 1 tablet PER TUBE 0900 01/09/15 01/26/17 History Tamsulosin [Flomax] 0.4 mg PER TUBE PC BREAKFAST 01/10/15 01/26/17 History Famotidine 20 mg PER TUBE 0900 01/12/15 01/26/17 History Ferrous Sulfate 325 mg PER TUBE BID 07/19/16 01/26/17 History Gabapentin Cap/Tab [Neurontin 400 mg PER TUBE TID 07/19/16 01/26/17 History Cap/Tab] Tramadol HCl [Tramadol Tab] 50 mg PER TUBE TID 07/19/16 01/26/17 History risperiDONE [Risperidone] 0.5 mg PER TUBE TID 01/09/17 01/26/17 History Acetaminophen 650 mg PER TUBE Q4H PRN 01/26/17 01/26/17 History Alum/Mag/Simeth Liquid [Mylanta 10 ml PER TUBE Q6H PRN 01/26/17 01/26/17 History Liquid] Amlodipine Besylate [Amlodipine 5 mg PER TUBE 0900 01/26/17 01/26/17 History Besylate] Amoxicillin/Clav Liquid [Augmentin 300 mg PER TUBE Q12HR 01/26/17 01/26/17 History Es Liquid] Donepezil [Aricept] 10 mg PER TUBE BEDTIME 01/26/17 01/26/17 History Memantine [Namenda] 10 mg PER TUBE BID 01/26/17 01/26/17 History Potassium Chloride Liquid 20 meq PER TUBE 0900 01/26/17 01/26/17 History clonazePAM TAB [KlonoPIN] 0.5 mg PER TUBE TID 01/26/17 01/26/17 History Allergies Allergy/AdvReac Type Severity Reaction Status Date / Time olanzapine [From Zyprexa] Allergy Unknown/Unable Verified 01/26/17 14:03 to obtain Medical,Surgical,& Family Hx - Medical History Cardio: History of: Cerebrovascular Disease ( reports unknown), CAD, Hypertension Psychological: History of: Behavior Problems (pulled Iv out of arm, hitting others with aggression), Psychiatric Problems (Delusions-believes he is still able to work at times and he at work) No history of: Violent Behavior Neurology: History of: Cerebrovascular Accident, Dementia No history of: Seizures Endocrine: History of: Dyslipidemia No history of: Diabetes Mellitus (IDDM) Genitourinary: History of: Problems (incontinet) Gastrointestinal: History of: GI Problems (PEG/ dysphagia) Musculoskeletal: History of: Musculoskeletal Problems (poor mobility) - Surgical History Cardiac Surgeries: Sugical HX of: Cardiac Surgery Thoracic Surgeries: Patient denies;: Organ Transplant - Social History Smoking Status: Unknown if ever smoked Frequency of Alcohol Use: Unknown Type of Drug Use: Unknown Marital Status: Lives With:: [place] Functional capacity: bed bound ROS unobtainable: due to endotracheal tube Exam - Constitutional Vitals: Period Temp Pulse Resp BP Sys/Bowling Pulse Ox Last 24 Hr 99.8 F-99.8 F 93-108 12-19 187-187/113-113 88-100 General appearance: normal weight, mild distress - Head Head exam: Present: normal inspection, normocephalic - Eye Eye exam: Absent: EOMI, laceration to eyelids - Neck Neck exam: Present: normal inspection - Respiratory Respiratory exam: Present: rhonchi. Absent: clear to auscultation bilaterally - Cardiovascular Cardiovascular exam: Present: tachycardia - GI/Abdominal GI/Abdominal exam: Present: normal bowel sounds, soft, other (pt has peg tube). Absent: tenderness - Extremities Exam Extremities exam: Absent: full ROM, edema - Neurological Exam Neurological exam: Present: altered. Absent: oriented X3 - Expanded Neurological Exam Coma Scale Eye Opening: None Coma Scale Motor Response: Localizes to Pain (pt intubated) Coma Scale Verbal Response: None Coma Scale Total: 7 - Psychiatric Psychiatric exam: Present: other (unable to assess due to intubation) - Skin Skin exam: Present: warm, dry Results - Labs CBC & BMP: 01/26/17 14:04 01/26/17 14:04 Lab Results: I have reviewed the past 24 hour labs <Justin Navarro - Last Filed: 01/26/17 18:48> Assessment and Plan - Time spent with patient Time spent with patient: Greater than 30 minutes (1) Acute respiratory failure Status: Acute Current Visit: Yes (2) Aspiration pneumonia Status: Acute Current Visit: Yes (3) Aspiration pneumonitis Status: Acute Current Visit: Yes (4) Alzheimer's type dementia Status: Chronic Current Visit: Yes History of Present Illness History of present illness: Mr. Augustine is a 72 year old male that was recently discharged from the hospital for treatment of pneumonia on January 17, 2017. He was brought back into the emergency department today by [facility] with copious secretions. He required emergent intubation for protection of his airway. Suction canister reveals copious amounts of what appears to be gastric content. The patient has a PEG tube and is likely aspirating. He is now intubated and sedated and being admitted to the hospitalist service to the intensive care unit for further management. A consult for pulmonary has been placed. He has been started on IV antibiotics for treatment of aspiration pneumonia. Home medications were reviewed and reconciled. The patient's and son were at the bedside in the emergency department at the time of my evaluation. I have personally seen and examined this patient today. I agree with the below note as prepared by the advanced practice provider. I agree with the assessment and plan. The case was discussed with Sakshi Byrd NP in detail. Medical,Surgical,& Family Hx - Family History Family History: Reports;: Family Hypertension ROS unobtainable: due to endotracheal tube Exam - Constitutional Vitals: Period Temp Pulse Resp BP Sys/Bowling Pulse Ox Last 24 Hr 99.2 F-99.8 F 73-108 12-19 94-187/64-113 88-100 Results - Labs CBC & BMP: 01/26/17 14:04 01/26/17 14:04 Lab Results: I have reviewed the past 24 hour labs - Diagnostic Findings Procedure: Chest x-ray: image reviewed by me, report reviewed by me
[2017-01-26] MEDS ORDERED: ALBUTEROL 2.5 MG/3 ML NEB RESP TX PRN (17:08)
[2017-01-26] MEDS ORDERED: ACETAMINOPHEN 325 MG TABLET PO PRN (17:08)
[2017-01-26 17:46] LABS: ABG Base Excess 2.4 MMOL/L (-2.5-2.5); ABG HCO3 26.5 MMOL/L (20-26); ABG Oxygen Saturation 99.7 % (95-100); ABG PCO2 35.2 MM HG (35-48); ABG TCO2 22.1 MMOL/L (23-27)
[2017-01-26] MEDS: PANTOPRAZOLE 40 MG VIAL IV SCH (17:49)
[2017-01-26] MEDS: LEVOFLOXACIN INJ 750 MG in PREMIX 1 EACH IV SCH (17:49)
[2017-01-27] MEDS ORDERED: SODIUM CHLORIDE 0.9% 250 ML IV ONE (01:10)
[2017-01-27 02:45] LABS: ABG HCO3 21.6 MMOL/L (20-26); ABG Oxygen Saturation 99.1 % (95-100); ABG PCO2 24.3 MM HG (35-48); ABG PH 7.566 (7.35-7.45); ABG PO2 199.6 MM HG (80-95); ABG TCO2 22.3 MMOL/L (23-27); Allen Test Positive; Pt O2 Delivery Device Ventilator
[2017-01-27] MEDS: SODIUM CHLORIDE 0.9% 1,000 ML IV SCH ×3 (03:00→16:31)
[2017-01-27] MEDS: NOREPINEPHRINE 8 MG in SODIUM CHLORIDE 0.9% 242 ML IV SCH (05:28)
--- NOTE | 2017-01-27 06:03 | EKG Report ---
Stationary ECG Study [facility] ER Test Date: 01/26/2017 2:36:31 PM Pat Name: FILIBERTO CAMARGO Department: Room: 129 Gender: M Connie Cleaner: : 1945 Requested by: Donovan Murrieta Order Number: [id number] Reading MD: RAMIN CHACON Intervals [place] Rate: 103 P: 67 ID: [id number] QRS: 114 QRSD: 140 T: -54 QT: 353 QTc: 413 Interpretive Statements SINUS TACHYCARDIA POSSIBLE RIGHT ATRIAL ENLARGEMENT POSSIBLE LEFT ATRIAL ENLARGEMENT INTRAVENTRICULAR CONDUCTION DELAY Electronically Signed On 01-27-17 12:39:39 CDT by RAMIN CHACON [email or web address]
--- NOTE | 2017-01-27 06:04 | Pulmonology Consult Note ---
Assessment and Plan (1) Acute respiratory failure Status: Acute Assessment and plan: Patient was intubated in the emergency room due to respiratory distress. He is not able to handle his secretions. It is felt that he likely aspirated again. Chest x-ray really does not show much. He has a slight right upper lobe infiltrate but this is much improved from when he was here 2 weeks ago. Current Visit: Yes (2) Aspiration pneumonia Status: Acute Assessment and plan: He had aspiration pneumonia 2 weeks ago. Again infiltrate is improved. Cover him with broad-spectrum antibiotics. Prognosis is poor. Current Visit: Yes (3) Dementia of Alzheimer's type with behavioral disturbance Status: Acute Assessment and plan: Apparently has severe Alzheimer's. He becomes combative at times. Current Visit: No History of Present Illness Chief complaint: Respiratory failure History of present illness: Mr. Augustine is a 72 year old male who has severe Alzheimer's. He lives in a prison in [place]. He recently was here with a right-sided pneumonia and went back to the prison in improved condition. He developed respiratory distress and was not able to handle his secretions so he was sent to the emergency room and was intubated there. The prison had recommended hospice care but the patient's apparently did not want that. At the present time he is on the ventilator and sedated. The nurses relate that when sedation is held he gets somewhat combative. His x-ray looks much better than the one did when he was here couple weeks ago. Unable to obtain really any more history. Home Medications Medication Instructions Recorded Confirmed Type Atorvastatin [Lipitor] 40 mg PER TUBE 89901/09/15 01/26/17 History Carvedilol 3.125 mg PER TUBE BID 01/09/15 01/26/17 History Cholecalciferol (Vitamin D3) 1,000 unit PER TUBE DAILY 01/09/15 01/26/17 History [Vitamin D3 Chew Tab] Cyanocobalamin (Vitamin B-12) 1,000 mcg PER TUBE 89901/09/15 01/26/17 History [Vitamin B-12] Docusate Sodium Cap [Colace Cap] 100 mg PER TUBE 89901/09/15 01/26/17 History Montelukast Tab [Singulair Tab] 10 mg PER TUBE BEDTIME 01/09/15 01/26/17 History Multivitamin [One Daily] 1 tablet PER TUBE 0900 01/09/15 01/26/17 History Tamsulosin [Flomax] 0.4 mg PER TUBE PC BREAKFAST 01/10/15 01/26/17 History Famotidine 20 mg PER TUBE 0900 01/12/15 01/26/17 History Ferrous Sulfate 325 mg PER TUBE BID 07/19/16 01/26/17 History Gabapentin Cap/Tab [Neurontin 400 mg PER TUBE TID 07/19/16 01/26/17 History Cap/Tab] Tramadol HCl [Tramadol Tab] 50 mg PER TUBE TID 07/19/16 01/26/17 History risperiDONE [Risperidone] 0.5 mg PER TUBE TID 01/09/17 01/26/17 History Acetaminophen 650 mg PER TUBE Q4H PRN 01/26/17 01/26/17 History Alum/Mag/Simeth Liquid [Mylanta 10 ml PER TUBE Q6H PRN 01/26/17 01/26/17 History Liquid] Amlodipine Besylate [Amlodipine 5 mg PER TUBE 0900 01/26/17 01/26/17 History Besylate] Amoxicillin/Clav Liquid [Augmentin 300 mg PER TUBE Q12HR 01/26/17 01/26/17 History Es Liquid] Donepezil [Aricept] 10 mg PER TUBE BEDTIME 01/26/17 01/26/17 History Memantine [Namenda] 10 mg PER TUBE BID 01/26/17 01/26/17 History Potassium Chloride Liquid 20 meq PER TUBE 0900 01/26/17 01/26/17 History clonazePAM TAB [KlonoPIN] 0.5 mg PER TUBE TID 01/26/17 01/26/17 History Allergies Allergy/AdvReac Type Severity Reaction Status Date / Time olanzapine [From Zyprexa] Allergy Unknown/Unable Verified 01/26/17 14:03 to obtain ROS unobtainable: due to endotracheal tube, due to mental status Exam (Pulmonay) H&P - Constitutional Vitals: Period Temp Pulse Resp BP Sys/Bowling Pulse Ox Last 24 Hr 97.6 F-99.8 F 58-108 12-19 67-187/46-113 88-100 Exam: Patient is sedated. Systolic blood pressure around 90. Vital signs otherwise normal. His eyes show show exophoria with the eyes turn outwardly on both sides. Pupils are small but reactive. Orotracheal tubes in place. Neck is supple. Chest reveals a few rhonchi equal breath sounds. Heart normal rate rhythm no murmurs. Abdomen soft no masses. Bowel sounds present. Extremities no clubbing cyanosis or edema. Medical,Surgical,& Family Hx - Medical History Cardio: History of: Cerebrovascular Disease ( reports unknown), CAD, Hypertension Psychological: History of: Behavior Problems (pulled Iv out of arm, hitting others with aggression), Psychiatric Problems (Delusions-believes he is still able to work at times and he at work) No history of: Violent Behavior Neurology: History of: Cerebrovascular Accident, Dementia No history of: Seizures Endocrine: History of: Dyslipidemia No history of: Diabetes Mellitus (IDDM) Respiratory: History of: Pneumonia, Respiratory Problems (ASPIRATION PNEUMONIA) Genitourinary: History of: Problems (incontinet) Gastrointestinal: History of: GI Problems (PEG/ dysphagia) Musculoskeletal: History of: Musculoskeletal Problems (poor mobility) - Surgical History Cardiac Surgeries: Sugical HX of: Cardiac Surgery Thoracic Surgeries: Patient denies;: Organ Transplant - Family History Family History: Reports;: Family Hypertension - Social History Smoking Status: Unknown if ever smoked Frequency of Alcohol Use: Unknown Type of Drug Use: Unknown Results - Labs CBC & BMP: 01/26/17 14:04 01/26/17 14:04 Lab Results: I have reviewed the past 24 hour labs
[2017-01-27] MEDS: PROPOFOL 1,000 MG/100 ML BOTTLE IV SCH ×3 (06:30→19:27)
[2017-01-27] MEDS: CLINDAMYCIN INJ 600 MG in PREMIX 1 EACH IV SCH ×3 (06:38→22:17)
[2017-01-27 06:40] LABS: Basophils % 0.1 % (0.0-0.8); Hematocrit 35.1 VOL% (42.0-52.0); Hemoglobin 11.6 GM/DL (14.0-18.0); Immature Granulocytes % 0.3 %; Immature Granulocytes Absolute 0.03 #; Lymphocytes # 0.6 10*3/uL (1.4-4.0); Lymphocytes % 7.4 % (21.2-54.2); Mean Corpuscular Hemoglobin 29 PG (27-34); Mean Platelet Volume 9.8 FL (9.6-12.0); Monocytes # 0.2 10*3/uL (0.11-0.8); Monocytes % 2.7 % (1.7-12.7); Neutrophils # 7.8 10*3/uL (1.4-7.4); Neutrophils % 89.5 % (38.7-73.9); Platelet Count 280 T/CUMM (130-400); Red Blood Count 3.99 MC/CUMM (3.8-5.5); Red Cell Distribution Width 13.1 % (9.3-17.3); White Blood Count 8.7 T/CUMM (4-12)
[2017-01-27 06:52] LABS: INR 1.2; PT Patient Result 12.6 SECS
[2017-01-27 07:15] LABS: Calcium 8.9 MG/DL (8.5-10.1); Osmolality,Calculated 285.3 MOS/KG (273-304); Potassium 4.1 MMOL/L (3.5-5.1)
[2017-01-27 07:29] LABS: Magnesium 2.3 MG/DL (1.8-2.4); Thyroid Stimulating Hormone 0.619 uIU/ml (0.358-3.74)
[2017-01-27 07:30] LABS: Troponin I Only 0.217 NG/ML (0.00-0.045)
[2017-01-27 07:35] LABS: Band Neutrophils 2 % (0-10); Burr Cells Slight; Giant Platelets Few; Hypochromasia Slight; Lymphocytes 5 % (20-55); Platelet Estimate Adequate; Segmented Neutrophils 91 % (50-85); Total Cells Counted 100
[2017-01-27 07:36] LABS: Microcytosis Slight
--- NOTE | 2017-01-27 08:22 | XRay Report ---
XR chest 1V portable Indication: SOB Comparison: Chest x-ray dated January 26, 2017 Technique: Single frontal view of the chest. Findings: The cardiomediastinal silhouette is stable in configuration. Endotracheal tube stable in positioning. Lower lung volumes. Continued mild opacification of the right upper lobe and left infrahilar lung. Visualized osseous and surrounding soft tissue structures appear grossly unchanged. IMPRESSION: No significant interval change. PROCEDURE INTERPRETED AT [facility] DEPARTMENT OF RADIOLOGY Final Report Signed by: Dr Jeromy Dyer
[2017-01-27] MEDS: LEVOFLOXACIN INJ 750 MG in PREMIX 1 EACH IV SCH (17:00)
[2017-01-27] MEDS: PANTOPRAZOLE 40 MG VIAL IV SCH (17:00)
--- NOTE | 2017-01-27 19:39 | Hospitalist Progress Note ---
Hospitalist: Subjective Interval history: 72 year old black male with a history of severe dementia, CVA, hypertension, NSTEMI, pneumonia, and dysphagia (has peg tube) who presented to the ED via EMS from [facility] for further evaluation and was found to have aspiration pneumonia as well as acute respiratory failure requiring mechanical ventilation. Exam - Constitutional Vitals: Period Temp Pulse Resp BP Sys/Bowling Pulse Ox Last 24 Hr 97 F-98.5 F 56-81 10-27 67-160/46-99 97-100 Exam: General: [No Acute Distress, intubated and on mechanical ventilation] HEENT: [Normocephalic, atraumatic] Neck: [Supple, No JVD] Chest: [Few rhonchi b/L] CV: [S1 + S2 audible without murmur, gallop or rub] Abd: [soft, NT, Non-distended, BS +, PEG +] Ext: [No edema] Skin: [No purpura, bruising or rash] Rheumatologic: [No Joint deformities] Neurologic: [Nonfocal] Results - Labs CBC & BMP: 01/27/17 06:20 01/27/17 06:20 - Impressions Assessment and Plan: (1) Aspiration pneumonia Status: Acute Assessment and plan: Continue IV antibiotics. IVF for hydration Current Visit: Yes (2) Acute hypoxemic respiratory failure Status: Acute Assessment and plan: Continue mechanical ventilation Current Visit: Yes (3) Hypertension, Ess Status: Acute Assessment and plan: Controlled,continue prn Labetolol Current Visit: No (4) Alzheimer's dementia Status: Chronic Current Visit: Yes
[2017-01-28] MEDS: NOREPINEPHRINE 8 MG in SODIUM CHLORIDE 0.9% 242 ML IV SCH (01:02)
[2017-01-28] MEDS: PROPOFOL 1,000 MG/100 ML BOTTLE IV SCH (01:57)
[2017-01-28 02:30] LABS: ABG Base Excess 0.5 MMOL/L (-2.5-2.5); ABG HCO3 24.9 MMOL/L (20-26); ABG Oxygen Saturation 99.3 % (95-100); ABG PCO2 30.9 MM HG (35-48); ABG PH 7.483 (7.35-7.45); ABG TCO2 20.6 MMOL/L (23-27)
[2017-01-28] MEDS: SODIUM CHLORIDE 0.9% 1,000 ML IV SCH ×3 (05:00→18:54)
[2017-01-28] MEDS: ZINC OXIDE PASTE 113 GM TUBE TOP PRN (05:01)
[2017-01-28] MEDS: CLINDAMYCIN INJ 600 MG in PREMIX 1 EACH IV SCH ×3 (05:33→21:32)
[2017-01-28 05:54] LABS: Basophils % 0.1 % (0.0-0.8); Eosinophils % 0.1 % (0.00-10.9); Hematocrit 35.4 VOL% (42.0-52.0); Hemoglobin 11.7 GM/DL (14.0-18.0); Immature Granulocytes % 0.5 %; Immature Granulocytes Absolute 0.04 #; Lymphocytes # 0.9 10*3/uL (1.4-4.0); Lymphocytes % 10.5 % (21.2-54.2); Mean Corpuscular HGB Conc 33.1 GM/DL (32-36); Mean Corpuscular Hemoglobin 29 PG (27-34); Mean Corpuscular Volume 88.7 FL (87-102); Mean Platelet Volume 9.9 FL (9.6-12.0); Monocytes # 0.8 10*3/uL (0.11-0.8); Monocytes % 9.8 % (1.7-12.7); Neutrophils # 6.4 10*3/uL (1.4-7.4); Platelet Count 249 T/CUMM (130-400); Red Blood Count 3.99 MC/CUMM (3.8-5.5); Red Cell Distribution Width 13.2 % (9.3-17.3); White Blood Count 8.1 T/CUMM (4-12)
[2017-01-28 06:27] LABS: Calcium 8.9 MG/DL (8.5-10.1); Magnesium 2.4 MG/DL (1.8-2.4); Osmolality,Calculated 286.8 MOS/KG (273-304); Potassium 3.7 MMOL/L (3.5-5.1)
[2017-01-28 06:34] LABS: Hypochromasia 1+; Microcytosis Slight; Ovalocytes Slight; Platelet Estimate Normal
--- NOTE | 2017-01-28 07:06 | Pulmonology Progress Note ---
Pulmonary - PN: Subj Interval history: PAtient intubate for respirator distress secondary to pneumonia. No events overnight. No problems per nursing Exam (Progress Note) - Constitutional Vitals: Period Temp Pulse Resp BP Sys/Bowling Pulse Ox Last 24 Hr 97 F-98.8 F 57-81 10-27 88-164/57-95 97-100 Exam: intubated and sedated - Head Head exam: Present: normal inspection - Neck Neck exam: Present: normal inspection - Respiratory Respiratory exam: Present: clear to auscultation bilaterally - Cardiovascular Cardiovascular exam: Present: regular rate and rhythm - GI/Abdominal GI/Abdominal exam: Present: normal bowel sounds - Extremities Exam Extremities exam: Absent: edema Results - Labs CBC & BMP: 01/28/17 05:24 01/28/17 05:24 Lab Results: I have reviewed the past 24 hour labs Labs: 7.48/30/126 Assessment and Plan (1) Acute respiratory failure Status: Acute Assessment and plan: PAtient admitted and intubated 2 days for pneumonia. Has remained hemodynamcally stable. No cxr this morning, but clinically he looks improved. Will place on SBT and sedation holiday. Patient with history of dementia so may not follow commands perfectly but if patient is awake and alert, and passes SBT will attempt to extubate Current Visit: Yes
[2017-01-28] MEDS: LABETALOL 20 MG/4 ML SYRINGE IV PRN ×2 (10:03→17:00)
--- NOTE | 2017-01-28 16:35 | Hospitalist Progress Note ---
Hospitalist: Subjective Interval history: 72 year old black male with a history of severe dementia, CVA, hypertension, NSTEMI, pneumonia, and dysphagia (has peg tube) who presented to the ED via EMS from [facility] for further evaluation and was found to have aspiration pneumonia as well as acute respiratory failure. He was extubated 01/28 Exam - Constitutional Vitals: Period Temp Pulse Resp BP Sys/Bowling Pulse Ox Last 24 Hr 97 F-98.8 F 54-76 10-21 88-186/57-97 97-100 Exam: General: [No Acute Distress] HEENT: [Normocephalic, atraumatic] Neck: [Supple, No JVD] Chest: [Few rhonchi b/L] CV: [S1 + S2 audible without murmur, gallop or rub] Abd: [soft, NT, Non-distended, BS +, PEG +] Ext: [No edema] Skin: [No purpura, bruising or rash] Rheumatologic: [No Joint deformities] Neurologic: [Nonfocal] Results - Labs CBC & BMP: 01/28/17 05:24 01/28/17 05:24 - Impressions Assessment and Plan: (1) Aspiration pneumonia Status: Acute Assessment and plan: Continue IV antibiotics. IVF for hydration Current Visit: Yes (2) Acute hypoxemic respiratory failure Status: Acute Assessment and plan: Patient was extubated 01/28 Current Visit: Yes (3) Hypertension, Ess Status: Acute Assessment and plan: Controlled, continue Norvasc Coreg & prn Labetolol Current Visit: No (4) Alzheimer's dementia Status: Chronic Current Visit: Yes
[2017-01-28] MEDS: LEVOFLOXACIN INJ 750 MG in PREMIX 1 EACH IV SCH (16:54)
[2017-01-28] MEDS: PANTOPRAZOLE 40 MG VIAL IV SCH (16:54)
[2017-01-28] MEDS: CARVEDILOL 3.125 MG TABLET PER TUBE SCH (21:32)
[2017-01-29] MEDS: NOREPINEPHRINE 8 MG in SODIUM CHLORIDE 0.9% 242 ML IV SCH (01:16)
[2017-01-29] MEDS: ZINC OXIDE PASTE 113 GM TUBE TOP PRN (04:00)
[2017-01-29] MEDS: CLINDAMYCIN INJ 600 MG in PREMIX 1 EACH IV SCH ×3 (05:48→21:31)
[2017-01-29 06:33] LABS: Basophils % 0.3 % (0.0-0.8); Eosinophils # 0.1 10*3/uL (0.0-0.87); Eosinophils % 1.1 % (0.00-10.9); Hemoglobin 12.2 GM/DL (14.0-18.0); Immature Granulocytes % 0.5 %; Immature Granulocytes Absolute 0.03 #; Lymphocytes # 1.1 10*3/uL (1.4-4.0); Lymphocytes % 18.3 % (21.2-54.2); Mean Corpuscular HGB Conc 33.9 GM/DL (32-36); Mean Corpuscular Hemoglobin 30 PG (27-34); Mean Corpuscular Volume 87.6 FL (87-102); Mean Platelet Volume 9.5 FL (9.6-12.0); Monocytes # 0.8 10*3/uL (0.11-0.8); Monocytes % 13.5 % (1.7-12.7); Neutrophils # 4.1 10*3/uL (1.4-7.4); Neutrophils % 66.3 % (38.7-73.9); Platelet Count 242 T/CUMM (130-400); Red Blood Count 4.11 MC/CUMM (3.8-5.5); Red Cell Distribution Width 12.9 % (9.3-17.3); White Blood Count 6.2 T/CUMM (4-12)
[2017-01-29 07:07] LABS: Calcium 8.3 MG/DL (8.5-10.1); Osmolality,Calculated 276.5 MOS/KG (273-304); Potassium 3.1 MMOL/L (3.5-5.1)
[2017-01-29] MEDS: SODIUM CHLORIDE 0.9% 1,000 ML IV SCH ×2 (09:10→21:31)
[2017-01-29] MEDS: CARVEDILOL 3.125 MG TABLET PER TUBE SCH ×2 (09:12→20:19)
[2017-01-29] MEDS: amLODIPine 5 MG TABLET PER TUBE SCH (09:12)
[2017-01-29] MEDS: PANTOPRAZOLE 40 MG VIAL IV SCH (17:13)
[2017-01-29] MEDS: LEVOFLOXACIN INJ 750 MG in PREMIX 1 EACH IV SCH (17:14)
--- NOTE | 2017-01-29 17:27 | Hospitalist Progress Note ---
Hospitalist: Subjective Interval history: 72 year old black male with a history of severe dementia, CVA, hypertension, NSTEMI, pneumonia, and dysphagia (has peg tube) who presented to the ED via EMS from [facility] for further evaluation and was found to have aspiration pneumonia as well as acute respiratory failure. He was extubated 01/28 Exam - Constitutional Vitals: Period Temp Pulse Resp BP Sys/Bowling Pulse Ox Last 24 Hr 97.2 F-99 F 49-76 12-22 97-169/62-98 96-100 Exam: General: [No Acute Distress] HEENT: [Normocephalic, atraumatic] Neck: [Supple, No JVD] Chest: [Few rhonchi b/L] CV: [S1 + S2 audible without murmur, gallop or rub] Abd: [soft, NT, Non-distended, BS +, PEG +] Ext: [No edema] Skin: [No purpura, bruising or rash] Rheumatologic: [No Joint deformities] Neurologic: [Nonfocal] Results - Labs CBC & BMP: 01/29/17 06:26 01/29/17 06:26 - Impressions Assessment and Plan: (1) Aspiration pneumonia Status: Acute Assessment and plan: Continue IV antibiotics. IVF for hydration Current Visit: Yes (2) Acute hypoxemic respiratory failure Status: Acute Assessment and plan: Patient was extubated 01/28 Current Visit: Yes (3) Hypertension, Ess Status: Acute Assessment and plan: Controlled, continue Norvasc Coreg & prn Labetolol Current Visit: No (4) Alzheimer's dementia Status: Chronic Current Visit: Yes Initiated PEG Feeds, Dietitian consulted, transfer to floor.
[2017-01-30] MEDS: CLINDAMYCIN INJ 600 MG in PREMIX 1 EACH IV SCH ×3 (06:07→21:37)
--- NOTE | 2017-01-30 07:51 | Pulmonology Progress Note ---
Pulmonary - PN: Subj Interval history: Patient is a 72-year-old black male with significant dementia and is in a intermediate. Recently had a fairly significant right-sided pneumonia that improved. He came back with respiratory distress and was thought to have possibly aspirated. In any case he was intubated for a few days. He was extubated over the weekend and is breathing comfortably. He responds a little but really cannot say much. He is in no respiratory distress and looks like he is at his baseline. His chest x-ray had actually improved. He has stable vital signs at present. Exam (Progress Note) - Constitutional Vitals: Period Temp Pulse Resp BP Sys/Bowling Pulse Ox Last 24 Hr 97.3 F-98.4 F 49-72 12-22 112-167/62-97 96-100 General appearance: normal weight, no acute distress (He is lying flat in bed and is comfortable.) - Head Head exam: Present: normal inspection, normocephalic - Eye Eye exam: Present: EOMI. Absent: scleral icterus Pupils: Present: TYRONE - ENT ENT exam: Present: normal exam - Neck Neck exam: Present: normal inspection. Absent: lymphadenopathy, thyromegaly - Respiratory Respiratory exam: Present: clear to auscultation bilaterally. Absent: rhonchi, wheezes - Cardiovascular Cardiovascular exam: Present: regular rate and rhythm. Absent: gallop, systolic murmur - GI/Abdominal GI/Abdominal exam: Present: normal bowel sounds, soft, other (He has a PEG tube in place.). Absent: organomegaly, tenderness - Extremities Exam Extremities exam: Absent: calf tenderness, edema - Neurological Exam Neurological exam: Present: altered (He will respond and say a word or 2 but does not talk much. He does not move his extremities very much at all.) - Psychiatric Psychiatric exam: Present: flat affect - Skin Skin exam: Present: warm, dry Results - Labs CBC & BMP: 01/29/17 06:26 01/29/17 06:26 Assessment and Plan (1) Aspiration pneumonia Status: Acute Assessment and plan: His chest x-ray is actually improved and is breathing better. He may need to go to bolus feedings and make sure he is sitting up at the intermediate. Current Visit: Yes (2) Acute respiratory failure Status: Resolved Assessment and plan: He is off the ventilator and breathing comfortably at present. He is quite stable and can move to a regular room. Current Visit: Yes (3) Hypertension Status: Acute Assessment and plan: His vital signs are stable at present time. Current Visit: No (4) Dementia of Alzheimer's type with behavioral disturbance Status: Acute Assessment and plan: He certainly has significant dementia and really cannot do much activity at all. Current Visit: No
[2017-01-30] MEDS ORDERED: GLUCAGON 1 MG VIAL IM PRN (08:55)
[2017-01-30] MEDS ORDERED: DEXTROSE 50% 25 GM/50 ML SYRINGE IV PRN (08:55)
[2017-01-30] MEDS: CARVEDILOL 3.125 MG TABLET PER TUBE SCH ×2 (09:29→20:07)
[2017-01-30] MEDS: amLODIPine 5 MG TABLET PER TUBE SCH (09:29)
[2017-01-30] MEDS: SODIUM CHLORIDE 0.9% 1,000 ML IV SCH ×2 (12:00→21:37)
[2017-01-30] MEDS: INSULIN LISPRO 100 UNIT/ML SUBCUT SCH ×2 (13:29→18:33)
--- NOTE | 2017-01-30 15:57 | Hospitalist Progress Note ---
Hospitalist: Subjective Interval history: 72 year old black male with a history of severe dementia, CVA, hypertension, NSTEMI, pneumonia, and dysphagia (has peg tube) who presented to the ED via EMS from [facility] for further evaluation and was found to have aspiration pneumonia as well as acute respiratory failure. He was extubated 01/28. Exam - Constitutional Vitals: Period Temp Pulse Resp BP Sys/Bowling Pulse Ox Last 24 Hr 97.3 F-98.6 F 62-72 12-21 112-156/71-97 96-100 Exam: General: [No Acute Distress] HEENT: [Normocephalic, atraumatic] Neck: [Supple, No JVD] Chest: [Few rhonchi b/L] CV: [S1 + S2 audible without murmur, gallop or rub] Abd: [soft, NT, Non-distended, BS +, PEG +] Ext: [No edema] Skin: [No purpura, bruising or rash] Rheumatologic: [No Joint deformities] Neurologic: [Nonfocal] Results - Labs CBC & BMP: 01/29/17 06:26 01/29/17 06:26 - Impressions Assessment and Plan: (1) Aspiration pneumonia Status: Acute Assessment and plan: Continue IV antibiotics. IVF for hydration Current Visit: Yes (2) Acute hypoxemic respiratory failure Status: Acute Assessment and plan: Patient was extubated 01/28 Current Visit: Yes (3) Hypertension, Ess Status: Acute Assessment and plan: Controlled, continue Norvasc Coreg & prn Labetolol Current Visit: No (4) Alzheimer's dementia Status: Chronic Current Visit: Yes Initiated PEG Feeds, Dietitian consulted, transfer to floor.
[2017-01-30] MEDS: PANTOPRAZOLE 40 MG VIAL IV SCH (18:24)
--- NOTE | 2017-01-30 18:27 | XRay Report ---
XR chest 1V portable Indication: Pneumonia. Chest one view: Comparison 01/27/2017 shows markedly improved aeration of the right upper lobe. There is still diffuse interstitial prominence of the lungs with borderline cardiomegaly and mediastinal wires. Patient has been extubated. Impression: Resolution of right upper lobe pneumonia. Extubation. PROCEDURE INTERPRETED AT [facility] DEPARTMENT OF RADIOLOGY Final Report Signed by: Sukhdeep Guerrero M.D.
[2017-01-30] MEDS: LEVOFLOXACIN INJ 750 MG in PREMIX 1 EACH IV SCH (18:28)
[2017-01-31] MEDS: SODIUM CHLORIDE 0.9% 1,000 ML IV SCH ×2 (00:40→14:30)
[2017-01-31] MEDS: INSULIN LISPRO 100 UNIT/ML SUBCUT SCH ×4 (01:15→18:46)
[2017-01-31] MEDS: CLINDAMYCIN INJ 600 MG in PREMIX 1 EACH IV SCH ×2 (05:51→18:00)
[2017-01-31 08:03] LABS: Calcium 8.5 MG/DL (8.5-10.1); Osmolality,Calculated 282.3 MOS/KG (273-304); Phosphorous 2.7 MG/DL (2.5-4.9); Potassium 3.1 MMOL/L (3.5-5.1); Prealbumin 14.3 MG/DL (20-40)
--- NOTE | 2017-01-31 08:55 | Pulmonology Progress Note ---
Pulmonary - PN: Subj Interval history: Patient is a 72-year-old black male with significant dementia and is in a correction. Recently had a fairly significant right-sided pneumonia that improved. He came back with respiratory distress and was thought to have possibly aspirated. In any case he was intubated for a few days. He was extubated over the weekend and is breathing comfortably. He has been breathing well and is in no distress. He is talking a little bit and it looks like he is back to baseline. His chest x-ray is clear now. At present he is reasonably stable. Exam (Progress Note) - Constitutional Vitals: Period Temp Pulse Resp BP Sys/Bowling Pulse Ox Last 24 Hr 97.2 F-98.8 F 62-77 15-24 112-166/70-98 92-98 Exam: General appearance: normal weight, no acute distress (He is lying flat in bed and is comfortable. He has no respiratory distress now.) - Head Head exam: Present: normal inspection, normocephalic - Eye Eye exam: Present: EOMI. Absent: scleral icterus Pupils: Present: TYRONE - ENT ENT exam: Present: normal exam - Neck Neck exam: Present: normal inspection. Absent: lymphadenopathy, thyromegaly - Respiratory Respiratory exam: Present: clear to auscultation bilaterally. He has good breath sounds bilaterally. Absent: rhonchi, wheezes - Cardiovascular Cardiovascular exam: Present: regular rate and rhythm. Absent: gallop, systolic murmur - GI/Abdominal GI/Abdominal exam: Present: normal bowel sounds, soft, other (He has a PEG tube in place.). Absent: organomegaly, tenderness - Extremities Exam Extremities exam: Absent: calf tenderness, edema, he does have very rigid extremities. - Neurological Exam Neurological exam: Present: altered (He will respond and say a word or 2 but does not talk much. He seems to be responding well at present. He does not move his extremities very much at all.) - Psychiatric Psychiatric exam: Present: flat affect - Skin Skin exam: Present: warm, dry Results - Labs CBC & BMP: 01/29/17 06:26 01/31/17 06:49 - Diagnostic Findings Procedure: Chest x-ray: image reviewed by me, report reviewed by me (His chest x -ray is clear now.) Assessment and Plan (1) Aspiration pneumonia Status: Acute Assessment and plan: His chest x-ray is actually improved and is breathing better. His chest x-ray is basically clear now. He is doing well he can probably go back to the correction. Current Visit: Yes (2) Acute respiratory failure Status: Resolved Assessment and plan: He is off the ventilator and breathing comfortably at present. He is quite stable and has no respiratory problems now. Current Visit: Yes (3) Hypertension Status: Acute Assessment and plan: His vital signs are stable at present time. Overall he appears to be medically stable. Current Visit: No (4) Dementia of Alzheimer's type with behavioral disturbance Status: Acute Assessment and plan: He certainly has significant dementia and really cannot do much activity at all. He will answer questions and is close to his baseline. Current Visit: No
[2017-01-31] MEDS: amLODIPine 5 MG TABLET PER TUBE SCH (09:07)
[2017-01-31] MEDS: PANTOPRAZOLE 40 MG VIAL IV SCH (09:07)
[2017-01-31] MEDS: CARVEDILOL 3.125 MG TABLET PER TUBE SCH ×2 (09:07→23:43)
--- NOTE | 2017-01-31 14:14 | Hospitalist Progress Note ---
Assessment and Plan (1) Aspiration pneumonia Status: Acute Assessment and plan: On clindamycin and levaquin Current Visit: Yes (2) Acute respiratory failure Status: Resolved Assessment and plan: Secondary to aspiration Resolved Current Visit: Yes (3) Hypertension Status: Acute Current Visit: No (4) Dementia of Alzheimer's type with behavioral disturbance Status: Acute Current Visit: No Hospitalist: Subjective Interval history: No acute events overnight. Patient seen this afternoon twisting all around in his bed. He is very active. Exam - Constitutional Vitals: Period Temp Pulse Resp BP Sys/Bowling Pulse Ox Last 24 Hr 97.1 F-98.8 F 61-77 15-24 105-166/67-98 92-98 General appearance: normal weight - Head Head exam: Present: normocephalic, atraumatic - Eye Eye exam: Present: EOMI Pupils: Present: TYRONE - ENT ENT exam: Present: normal exam - Neck Neck exam: Present: normal inspection - Respiratory Respiratory exam: Present: clear to auscultation bilaterally. Absent: rhonchi, wheezes - Cardiovascular Cardiovascular exam: Present: regular rate and rhythm - GI/Abdominal GI/Abdominal exam: Present: normal bowel sounds, soft. Absent: tenderness, rebound - Extremities Exam Extremities exam: Present: normal inspection - Back Exam Back exam: Present: normal inspection - Neurological Exam Neurological exam: Present: alert - Psychiatric Psychiatric exam: Present: normal affect, normal mood - Skin Skin exam: Present: warm, intact Results - Labs CBC & BMP: 01/29/17 06:26 01/31/17 06:49
[2017-01-31] MEDS: POTASSIUM CHLORIDE RIDER 10 MEQ in PREMIX 1 EACH IV PRN ×4 (14:25→21:08)
[2017-01-31] MEDS ORDERED: HALOPERIDOL 5 MG/ML AMP IV PRN (20:42)
[2017-01-31] MEDS: LEVOFLOXACIN INJ 750 MG in PREMIX 1 EACH IV SCH (23:42)
[2017-02-01] MEDS: INSULIN LISPRO 100 UNIT/ML SUBCUT SCH ×3 (01:24→12:07)
[2017-02-01] MEDS: CLINDAMYCIN INJ 600 MG in PREMIX 1 EACH IV SCH ×2 (01:25→09:00)
[2017-02-01] MEDS: SODIUM CHLORIDE 0.9% 1,000 ML IV SCH (04:28)
[2017-02-01 07:58] LABS: Calcium 6.7 MG/DL (8.5-10.1); Magnesium 1.7 MG/DL (1.8-2.4); Osmolality,Calculated 285.7 MOS/KG (273-304); Potassium 3.2 MMOL/L (3.5-5.1)
[2017-02-01 08:36] VITALS: BP 136/97
--- NOTE | 2017-02-01 08:44 | Pulmonology Progress Note ---
Pulmonary - PN: Subj Interval history: Patient is a 72-year-old black male with significant dementia and is in a retirement. Recently had a fairly significant right-sided pneumonia that improved. He came back with respiratory distress and was thought to have possibly aspirated. In any case he was intubated for a few days. He was extubated over the weekend and is breathing comfortably. He has been breathing well and is in no distress. He apparently had a fairly good night last night. He does have some arthralgias at times. He seems to be tolerating his feedings reasonably well. He has a slight cough but no shortness of breath. His lungs are doing well now. Exam (Progress Note) - Constitutional Vitals: Period Temp Pulse Resp BP Sys/Obwling Pulse Ox Last 24 Hr 96.4 F-99.1 F 58-66 18-22 116-142/56-97 95-98 Exam: General appearance: normal weight, no acute distress (He is lying flat in bed and is comfortable. He has no respiratory distress now.) - Head Head exam: Present: normal inspection, normocephalic - Eye Eye exam: Present: EOMI. Absent: scleral icterus Pupils: Present: TYRONE - ENT ENT exam: Present: normal exam - Neck Neck exam: Present: normal inspection. Absent: lymphadenopathy, thyromegaly - Respiratory Respiratory exam: Present: clear to auscultation bilaterally. He has good breath sounds bilaterally. Absent: rhonchi, wheezes - Cardiovascular Cardiovascular exam: Present: regular rate and rhythm. Absent: gallop, systolic murmur - GI/Abdominal GI/Abdominal exam: Present: normal bowel sounds, soft, other (He has a PEG tube in place.). Absent: organomegaly, tenderness - Extremities Exam Extremities exam: Absent: calf tenderness, edema, he does have very rigid extremities. - Neurological Exam Neurological exam: Present: He will respond and talk a little bit more today. He still gets confused easily. - Psychiatric Psychiatric exam: Present: flat affect - Skin Skin exam: Present: warm, dry Results - Labs CBC & BMP: 01/29/17 06:26 02/01/17 05:44 Assessment and Plan (1) Aspiration pneumonia Status: Acute Assessment and plan: His chest x-ray is actually improved and is breathing better. His chest x-ray is basically clear now. He is doing well he can probably go back to the retirement. He continues to do well from a pulmonary standpoint. I will sign off. Please call if needed. Current Visit: Yes (2) Acute respiratory failure Status: Resolved Assessment and plan: He is off the ventilator and breathing comfortably at present. He is quite stable and has no respiratory problems now. Current Visit: Yes (3) Hypertension Status: Acute Assessment and plan: His vital signs are stable at present time. Overall he appears to be medically stable. Current Visit: No (4) Dementia of Alzheimer's type with behavioral disturbance Status: Acute Assessment and plan: He certainly has significant dementia and really cannot do much activity at all. He will answer questions and is close to his baseline. Overall his neurological status is about the same. Current Visit: No
[2017-02-01] MEDS: CARVEDILOL 3.125 MG TABLET PER TUBE SCH (08:56)
[2017-02-01] MEDS: POTASSIUM CHLORIDE 20 MEQ/15 ML UDCUP PER TUBE PRN ×2 (08:56→11:32)
--- NOTE | 2017-02-01 08:56 | Discharge Summary ---
Hospital Course - Hospital Course Hospital Course: Patient is a 72-year-old black male with significant dementia and is in a [place] [facility]. Recently had a fairly significant right-sided pneumonia that improved. He came back with respiratory distress and was thought to have possibly aspirated. In any case he was intubated for a few days. He was extubated over the weekend and is breathing comfortably. He has been breathing well and is in no distress. He apparently had a fairly good night last night. He does have some arthralgias at times. He seems to be tolerating his feedings reasonably well. He has a slight cough but no shortness of breath. His lungs are doing well now. Treated in hospital with intravenous levofloxacin. At the time of his discharge he was comfortable and doing well. Diagnosis - Discharge Diagnosis (1) Aspiration pneumonia Status: Acute (2) Acute respiratory failure Status: Resolved (3) Alzheimer's type dementia Status: Chronic (4) Osteoarthritis Status: Acute - Acute Myocardial Infarction [facility] Contraindications: ineligible Contraindications to Beta Blockers: 2nd degree heart block Contraindications to Prescribing Statins at DC: allergies Contraindications to Prescribing ASA at DC: allergies Discharge Plan - Discharge Data Disposition: Disch/Xfer to Snf Condition at Discharge: Stable Discharge Diet: other (Continue tube feedings.) Activity: resume usual activities as tolerated - Discharge Medications New levoFLOXacin [Levaquin Liquid] 500 mg PER TUBE DAILY #7 ml Continue Atorvastatin [Lipitor] 40 mg PER TUBE 0900 Carvedilol 3.125 mg PER TUBE BID Cholecalciferol (Vitamin D3) [Vitamin D3 Chew Tab] 1,000 unit PER TUBE DAILY Cyanocobalamin (Vitamin B-12) [Vitamin B-12] 1,000 mcg PER TUBE 0900 Montelukast Tab [Singulair Tab] 10 mg PER TUBE BEDTIME Docusate Sodium Cap [Colace Cap] 100 mg PER TUBE 0900 Multivitamin [One Daily] 1 tablet PER TUBE 0900 Tamsulosin [Flomax] 0.4 mg PER TUBE PC BREAKFAST Famotidine 20 mg PER TUBE 0900 risperiDONE [Risperidone] 0.5 mg PER TUBE TID Alum/Mag/Simeth Liquid [Mylanta Liquid] 10 ml PER TUBE Q6H PRN PRN Reason: Indigestion Acetaminophen 650 mg PER TUBE Q4H PRN PRN Reason: Fever, Headache, Mild Pain clonazePAM TAB [KlonoPIN] 0.5 mg PER TUBE TID Amlodipine Besylate 5 mg PER TUBE 0900 Memantine [Namenda] 10 mg PER TUBE BID Amoxicillin/Clav Liquid [Augmentin Es Liquid] 300 mg PER TUBE Q12HR Potassium Chloride Liquid 20 meq PER TUBE 0900 Donepezil [Aricept] 10 mg PER TUBE BEDTIME Tramadol HCl [Tramadol Tab] 50 mg PER TUBE TID Gabapentin Cap/Tab [Neurontin Cap/Tab] 400 mg PER TUBE TID Ferrous Sulfate 325 mg PER TUBE BID - Follow Up or Referral - Forms/Instructions Exam - Constitutional Vitals: Period Temp Pulse Resp BP Sys/Bowling Pulse Ox Last 24 Hr 96.4 F-99.1 F 58-66 18-22 116-142/56-97 95-98 General appearance: no acute distress - Head Head exam: Present: normal inspection - Neck Neck exam: Present: normal inspection - Respiratory Respiratory exam: Present: other (Scattered rhonchi and rales.) - Cardiovascular Cardiovascular exam: Present: regular rate and rhythm - GI/Abdominal GI/Abdominal exam: Present: normal bowel sounds, soft, other (Nontender with no palpable masses or hepatosplenomegaly.) - Extremities Exam Extremities exam: Present: normal inspection - Neurological Exam Neurological exam: Present: other (Persistently confused and disoriented.) - Skin Skin exam: Present: normal color, warm, intact Discharge Results Labs on day of discharge: Labs from last 24 hours 02/01/17 01/31/17 01/31/17 05:44 23:38 18:10 Sodium 145 Potassium 3.2 L Chloride 115 H Carbon Dioxide 21 Anion Gap 12.2 BUN 9 Creatinine 0.50 L GFR Calculation 136 BUN/Creatinine Ratio 18.00 Glucose 72 L POC Glucose 132 H 128 H Calculated Osmolality 285.7 Calcium 6.7 L D Magnesium 1.7 L 01/31/17 11:20 Sodium Potassium Chloride Carbon Dioxide Anion Gap BUN Creatinine GFR Calculation BUN/Creatinine Ratio Glucose POC Glucose 123 H Calculated Osmolality Calcium Magnesium DS: Provider Date of admission: 01/26/17 16:01 Primary care physician: . 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
[2017-02-01] MEDS: amLODIPine 5 MG TABLET PER TUBE SCH (08:57)
[2017-02-01] MEDS: PANTOPRAZOLE 40 MG VIAL IV SCH (08:57)
[2017-02-01] MEDS: POTASSIUM CHLORIDE RIDER 10 MEQ in PREMIX 1 EACH IV PRN ×2 (09:01→11:32)
== END 2017-02-01 12:08 | DRG 208 ==
LOC: N.ED 13:36 → SUATTDRO 16:01 → N.EDINP 16:35 → N.CC 16:58 → N.2E 01-30 23:02
PROVIDERS: ADMIT Nurse Practitioner

== ENCOUNTER 2017-02-10 03:09 | Inpatient (IN) ==
--- NOTE | 2017-02-10 03:21 | Emergency Department Note ---
Arrival - Arrival Stated Complaint: sob Time Seen by Provider: 02/10/17 03:18 - History of Present Illness HPI Narrative: This is a 72-year-old male of descent with a history of severe dementia , previous CVA, hypertension, non-STEMI, pneumonia, dysphagia with a PEG tube, who presents from [facility] after being discharged from the hospital February 01 with aspiration pneumonia for which he was treated with Levaquin, who is a full code and who is initially placed in the ICU after intubation who returns with fever gurgling respirations decreased mental status and a room air O2 sat of 84%. Allergies/Adverse Reactions: Allergies Allergy/AdvReac Type Severity Reaction Status Date / Time olanzapine [From Zyprexa] Allergy Unknown/Unable Verified 01/26/17 14:03 to obtain Home Medications: Home Medications Medication Instructions Recorded Confirmed Type Atorvastatin [Lipitor] 40 mg PER TUBE 0900 01/09/15 01/26/17 History Carvedilol 3.125 mg PER TUBE BID 01/09/15 01/26/17 History Cholecalciferol (Vitamin D3) 1,000 unit PER TUBE DAILY 01/09/15 01/26/17 History [Vitamin D3 Chew Tab] Cyanocobalamin (Vitamin B-12) 1,000 mcg PER TUBE 0900 01/09/15 01/26/17 History [Vitamin B-12] Docusate Sodium Cap [Colace Cap] 100 mg PER TUBE 00 01/09/15 01/26/17 History Montelukast Tab [Singulair Tab] 10 mg PER TUBE BEDTIME 01/09/15 01/26/17 History Multivitamin [One Daily] 1 tablet PER TUBE 0901/09/15 01/26/17 History Tamsulosin [Flomax] 0.4 mg PER TUBE PC BREAKFAST 01/10/15 01/26/17 History Famotidine 20 mg PER TUBE 0900 01/12/15 01/26/17 History Ferrous Sulfate 325 mg PER TUBE BID 07/19/16 01/26/17 History Gabapentin Cap/Tab [Neurontin 400 mg PER TUBE TID 07/19/16 01/26/17 History Cap/Tab] Tramadol HCl [Tramadol Tab] 50 mg PER TUBE TID 07/19/16 01/26/17 History risperiDONE [Risperidone] 0.5 mg PER TUBE TID 01/09/17 01/26/17 History Acetaminophen 650 mg PER TUBE Q4H PRN 01/26/17 01/26/17 History Alum/Mag/Simeth Liquid [Mylanta 10 ml PER TUBE Q6H PRN 01/26/17 01/26/17 History Liquid] Amlodipine Besylate 5 mg PER TUBE 0900 01/26/17 01/26/17 History Amoxicillin/Clav Liquid [Augmentin 300 mg PER TUBE Q12HR 01/26/17 01/26/17 History Es Liquid] Donepezil [Aricept] 10 mg PER TUBE BEDTIME 01/26/17 01/26/17 History Memantine [Namenda] 10 mg PER TUBE BID 01/26/17 01/26/17 History Potassium Chloride Liquid 20 meq PER TUBE 0900 01/26/17 01/26/17 History clonazePAM TAB [KlonoPIN] 0.5 mg PER TUBE TID 01/26/17 01/26/17 History levoFLOXacin [Levaquin Liquid] 500 mg PER TUBE DAILY #7 ml 02/01/17 Rx Review of System - Review of System ROS unobtainable: due to dementia - Review of System Constitutional: Present: fever. Absent: chills Eyes: Absent: redness Head/Ears/Nose/Throat: Absent: epistaxis Respiratory: Present: respiratory distress Cardiovascular: Absent: edema Gastrointestinal: Absent: diarrhea Genitourinary male: Absent: hematuria Musculoskeletal: Absent: joint swelling Skin: Absent: change in color Endocrine: Absent: polydipsia, polyuria Hematological/Lymphatic: Absent: easy bruising Allergic/Immunologic: Absent: urticaria Medical,Surgical,& Family Hx - Medical History Cardio: History of: Cerebrovascular Disease ( reports unknown), CAD, Hypertension Psychological: History of: Behavior Problems (pulled Iv out of arm, hitting others with aggression), Psychiatric Problems (Delusions-believes he is still able to work at times and he at work) No history of: Violent Behavior Neurology: History of: Cerebrovascular Accident, Dementia No history of: Seizures Endocrine: History of: Dyslipidemia No history of: Diabetes Mellitus (IDDM) Respiratory: History of: Pneumonia, Respiratory Problems (ASPIRATION PNEUMONIA) Genitourinary: History of: Problems (incontinet) Gastrointestinal: History of: GI Problems (PEG/ dysphagia) Musculoskeletal: History of: Musculoskeletal Problems (poor mobility) - Surgical History Cardiac Surgeries: Sugical HX of: Cardiac Surgery Thoracic Surgeries: Patient denies;: Organ Transplant - Family History Family History: Reports;: Family Hypertension - Social History Smoking Status: Unknown if ever smoked Exam Vital Signs: Vital Signs Temperature 100.0 F H 02/10/17 03:16 Pulse Rate 98 H 02/10/17 03:16 Respiratory Rate 17 02/10/17 03:36 Blood Pressure 130/74 02/10/17 03:16 O2 Sat by Pulse Oximetry 91 L 02/10/17 03:16 - General General appearance: other (Patient is obtunded with a GCS of less than 8) - Head Head exam: Present: atraumatic - Eye Eye exam: Present: PERRL - ENT ENT exam: Present: normal exam - Neck Neck exam: Present: normal inspection - Chest Chest inspection: Present: symmetric chest wall rise - Respiratory Respiratory exam: Present: rales, rhonchi - Cardiovascular Cardiovascular exam: Present: regular rate, normal rhythm - Abdominal Exam Abdominal exam: Present: soft, normal bowel sounds - Back Exam Back exam: Present: normal inspection, full ROM - Neurological Exam Neurological exam: Present: other (Obtunded with a GCS of 8) - Skin Skin exam: Present: warm, dry
[2017-02-10] MEDS ORDERED: SODIUM CHLORIDE 0.9% 2,000 ML IV STA (03:45)
[2017-02-10] MEDS ORDERED: VANCOMYCIN INJ 1,000 MG in SODIUM CHLORIDE 0.9% 250 ML IV STA (03:46)
[2017-02-10] MEDS ORDERED: PIPERACILLIN/TAZOBACTAM 3,375 MG in SODIUM CHLORIDE 0.9% 100 ML IV STA (03:46)
[2017-02-10] MEDS ORDERED: ALBUTEROL/IPRATROPIUM 3 ML NEB RESP TX STA (03:47)
[2017-02-10 04:05] LABS: ABG Base Excess 3.6 MMOL/L (-2.5-2.5); ABG HCO3 27.3 MMOL/L (20-26); ABG Oxygen Saturation 94.7 % (95-100); ABG PCO2 38.6 MM HG (35-48); ABG PH 7.468 (7.35-7.45); ABG PO2 69.4 MM HG (80-95); ABG TCO2 28.5 MMOL/L (23-27); Allen Test Positive
[2017-02-10 04:28] LABS: Basophils % 0.2 % (0.0-0.8); Eosinophils % 0.2 % (0.00-10.9); Hematocrit 45.2 VOL% (42.0-52.0); Hemoglobin 14.8 GM/DL (14.0-18.0); Immature Granulocytes % 0.3 %; Immature Granulocytes Absolute 0.04 #; Lymphocytes # 1.5 10*3/uL (1.4-4.0); Lymphocytes % 12.4 % (21.2-54.2); Mean Corpuscular HGB Conc 32.7 GM/DL (32-36); Mean Corpuscular Hemoglobin 30 PG (27-34); Mean Corpuscular Volume 90.2 FL (87-102); Mean Platelet Volume 10.4 FL (9.6-12.0); Monocytes # 0.8 10*3/uL (0.11-0.8); Monocytes % 6.7 % (1.7-12.7); Neutrophils # 9.5 10*3/uL (1.4-7.4); Neutrophils % 80.2 % (38.7-73.9); Platelet Count 204 T/CUMM (130-400); Red Blood Count 5.01 MC/CUMM (3.8-5.5); White Blood Count 11.9 T/CUMM (4-12)
[2017-02-10 04:49] LABS: Albumin 3.2 G/DL (3.4-5.0); Calcium 9.4 MG/DL (8.5-10.1); Lactic Acid 2.1 MMOL/L (0.4-2.0); Osmolality,Calculated 277.5 MOS/KG (273-304); Potassium 4.7 MMOL/L (3.5-5.1); Total Protein 8.1 G/DL (6.4-8.3)
[2017-02-10] MEDS ORDERED: PIPERACILLIN/TAZOBACTAM 3,375 MG VIAL IV ONE (04:57)
[2017-02-10] MEDS ORDERED: SODIUM CHLORIDE 0.9% 100 ML IV ONE (04:58)
[2017-02-10] MEDS ORDERED: VANCOMYCIN 1,000 MG VIAL ONE (04:58)
[2017-02-10 06:02] LABS: Amorphous Crystals,Urine Few /HPF (Few); Apearance,Urine CLOUDY (Clear); Bilirubin,Urine Negative (Negative); Blood, Urine Negative (Negative); Glucose,Urine (UA) Negative (Negative); Ketones,Urine Negative (Negative); Nitrite,Urine Negative (Negative); Protein,Urine Negative; Urine Color Yellow (Yellow); Urine Specific Gravity 1.018 (1.001-1.035); Urine Urobilinogen < 2.0 EU/DL (0.2-1.0)
[2017-02-10] MEDS ORDERED: DOCUSATE SODIUM 100 MG/10 ML UDCUP PO PRN (06:16)
[2017-02-10] MEDS ORDERED: ACETAMINOPHEN 325 MG/10.15 ML UDCUP PO PRN (06:16)
--- NOTE | 2017-02-10 06:31 | XRay Report ---
Portable chest Date: 02/10/2017 Clinical history: Shortness of breath Comparison: 01/30/2017 Technique: Portable AP sitting chest Findings: The heart is minimally enlarged with prior median sternotomy. Progressive parenchymal findings in the right lower lobe. Underlying chronic scarring. Stable mediastinum and osseous structures. Impression: Findings which can be seen with recurrent right lower lobe pneumonia. Follow-up films are recommended document clearing. Chronic scarring patient with prior median sternotomy. PROCEDURE INTERPRETED AT [facility] DEPARTMENT OF RADIOLOGY Final Report Signed by: Dr. Tiffanie Rich
--- NOTE | 2017-02-10 06:33 | Hospitalist History & Physical ---
Assessment and Plan - Time spent with patient Time spent with patient: Less than 30 minutes (1) Aspiration pneumonia Status: Acute Assessment and plan: Awaiting blood and urine cultures Aggressive pulmonary toiletry Duonebs q4 hours Levaquin and Clindamycin for antibiotic coverage Consult pulmonology for bronch with possible washout Current Visit: Yes (2) Hyperlipidemia Status: Chronic Assessment and plan: Continue home medication regimen after confirmation of medicines Current Visit: No (3) Hypertension Status: Chronic Assessment and plan: Continue home medication regimen after confirmation of medicines Current Visit: No (4) Sepsis Status: Acute Assessment and plan: IV hydration Will recheck lactate in 6 hours Levaquin and Clindamycin for antibiotic coverage Aggressive pulmonary toiletry Awaiting blood and urine cultures Current Visit: No Qualifiers: Sepsis type: sepsis due to unspecified organism Qualified Code(s): A41.9 - Sepsis, unspecified organism (5) Dementia Status: Chronic Assessment and plan: Will continue home medication regimen after confirmation of home medicines Current Visit: No Qualifiers: Dementia type: Alzheimer's disease Alzheimer's disease onset: unspecified onset Dementia behavioral disturbance: with behavioral disturbance Qualified Code(s): G30.8 - Other Alzheimer's disease; F02.81 - Dementia in other diseases classified elsewhere with behavioral disturbance History of Present Illness Chief complaint: shortness of breath History of present illness: Called to the ER for Mr. Augustine who is a 72 year old male who presents to the emergency department [facility] with chief complaint of shortness of breath per group home staff. Patient was recently discharged on January 17 and February 01 for bilateral aspiration pneumonia. Both visits he was placed in the ICU. During the January 17 visit, he was not intubated and managed on supplemental oxygen only. On the February 01 visit, he was intubated with ventilator support for several days. He was sent back to the group home on antibiotics ( Levaquin and Augmentin ER) p.o. after both visits. Pulmonology has followed patient during each hospital stay. [facility] picked him up and reported oxygen saturations in the low 80s on room air. [facility] staff told EMS there was a good chance he could have aspirated again. In our ER, he received 2 L normal saline, Zosyn and Vanc, blood and urine cultures, and an albuterol treatment. Patient's oxygen saturations on 3 L via nasal cannula ranged from 92 -94%. Chest x-ray right lower lobe consolidation. Past chest x-rays reveal pneumonia in the bilateral upper lobes. Patient has a history of severe dementia, CVA, hypertension, and STEMI, recurrent pneumonia, dysphagia (has PEG tube), and sacral decubitus ulcer. Patient is a resident of [facility]. No family is at bedside. All history is obtained by old records. He remains a full code. He will be admitted into the ICU. We will start him on Levaquin and clindamycin and await blood and urine cultures. He will require aggressive pulmonary toiletry including NT suctioning and chest physiotherapy to keep from being intubated. He will receive DuoNeb treatments every 4. We will consult pulmonology for a possible bronc with washout and wound care for sacral decubitus ulcer. Home Medications Medication Instructions Recorded Confirmed Type Atorvastatin [Lipitor] 40 mg PER TUBE 0900 01/09/15 01/26/17 History Carvedilol 3.125 mg PER TUBE BID 01/09/15 01/26/17 History Cholecalciferol (Vitamin D3) 1,000 unit PER TUBE DAILY 01/09/15 01/26/17 History [Vitamin D3 Chew Tab] Cyanocobalamin (Vitamin B-12) 1,000 mcg PER TUBE 0900 01/09/15 01/26/17 History [Vitamin B-12] Docusate Sodium Cap [Colace Cap] 100 mg PER TUBE 0900 01/09/15 01/26/17 History Montelukast Tab [Singulair Tab] 10 mg PER TUBE BEDTIME 01/09/15 01/26/17 History Multivitamin [One Daily] 1 tablet PER TUBE 0900 01/09/15 01/26/17 History Tamsulosin [Flomax] 0.4 mg PER TUBE PC BREAKFAST 01/10/15 01/26/17 History Famotidine 20 mg PER TUBE 0900 01/12/15 01/26/17 History Ferrous Sulfate 325 mg PER TUBE BID 07/19/16 01/26/17 History Gabapentin Cap/Tab [Neurontin 400 mg PER TUBE TID 07/19/16 01/26/17 History Cap/Tab] Tramadol HCl [Tramadol Tab] 50 mg PER TUBE TID 07/19/16 01/26/17 History risperiDONE [Risperidone] 0.5 mg PER TUBE TID 01/09/17 01/26/17 History Acetaminophen 650 mg PER TUBE Q4H PRN 01/26/17 01/26/17 History Alum/Mag/Simeth Liquid [Mylanta 10 ml PER TUBE Q6H PRN 01/26/17 01/26/17 History Liquid] Amlodipine Besylate 5 mg PER TUBE 0900 01/26/17 01/26/17 History Amoxicillin/Clav Liquid [Augmentin 300 mg PER TUBE Q12HR 01/26/17 01/26/17 History Es Liquid] Donepezil [Aricept] 10 mg PER TUBE BEDTIME 01/26/17 01/26/17 History Memantine [Namenda] 10 mg PER TUBE BID 01/26/17 01/26/17 History Potassium Chloride Liquid 20 meq PER TUBE 0900 01/26/17 01/26/17 History clonazePAM TAB [KlonoPIN] 0.5 mg PER TUBE TID 01/26/17 01/26/17 History levoFLOXacin [Levaquin Liquid] 500 mg PER TUBE DAILY #7 ml 02/01/17 Rx Allergies Allergy/AdvReac Type Severity Reaction Status Date / Time olanzapine [From Zyprexa] Allergy Unknown/Unable Verified 01/26/17 14:03 to obtain Medical,Surgical,& Family Hx - Medical History Cardio: History of: Cerebrovascular Disease ( reports unknown), CAD, Hypertension Psychological: History of: Behavior Problems (pulled Iv out of arm, hitting others with aggression), Psychiatric Problems (Delusions-believes he is still able to work at times and he at work) No history of: Violent Behavior Neurology: History of: Cerebrovascular Accident, Dementia No history of: Seizures Endocrine: History of: Dyslipidemia No history of: Diabetes Mellitus (IDDM) Respiratory: History of: Pneumonia, Respiratory Problems (ASPIRATION PNEUMONIA) Genitourinary: History of: Problems (incontinet) Gastrointestinal: History of: GI Problems (PEG/ dysphagia) Musculoskeletal: History of: Musculoskeletal Problems (poor mobility) - Surgical History Cardiac Surgeries: Sugical HX of: Cardiac Surgery Thoracic Surgeries: Patient denies;: Organ Transplant - Family History Family History: Reports;: Family Hypertension - Social History Smoking Status: Unknown if ever smoked Frequency of Alcohol Use: None Type of Drug Use: None Marital Status: Functional capacity: bed bound ROS unobtainable: due to dementia Exam - Constitutional Vitals: Period Temp Pulse Resp BP Sys/Bowling Pulse Ox Last 24 Hr 100.0 F-100.0 F 98-117 16-24 130-130/74-74 91-97 General appearance: normal weight, mild distress - Head Head exam: Present: normal inspection, normocephalic - Eye Eye exam: Present: other (Daze with no direct eye tracking. ) Pupils: Present: TYRONE - ENT ENT exam: Present: other (Dry mucous membranes) - Neck Neck exam: Present: normal inspection - Respiratory Respiratory exam: Present: rhonchi (to all lung moreira. Respirations even and non-labored. Symmetrical rise and fall of chest noted.). Absent: accessory muscle use, decreased breath sounds - Cardiovascular Cardiovascular exam: Present: regular rate and rhythm (without ectopy) - GI/Abdominal GI/Abdominal exam: Present: normal bowel sounds, soft (PEG tube intact). Absent : firm - Extremities Exam Extremities exam: Present: normal inspection, normal capillary refill. Absent: edema - Back Exam Back exam: Present: normal inspection - Neurological Exam Neurological exam: Present: other (Unable to answer questions or follow commands. No spontaneous movement or eye opening. ) - Skin Skin exam: Present: normal color, warm, dry Results - Labs CBC & BMP: 02/10/17 03:52 02/10/17 03:52 Lab Results: I have reviewed the past 24 hour labs - Diagnostic Findings Procedure: CT - chest: image reviewed by me (RLL consolidation) Sepsis - Sepsis Classification of Sepsis: Sepsis Possible / Suspected infection from: pneumonia in RLL
[2017-02-10] MEDS: ENOXAPARIN 40 MG/0.4 ML SYRINGE SUBCUT SCH (06:39)
--- NOTE | 2017-02-10 06:41 | CT Report ---
Referring physician: Yonny Nair MD EXAM: CT abdomen and pelvis with contrast DATE: 07/01/2016 COMPARISON: None REASON: Fever TECHNIQUE: Axial images of the abdomen and pelvis were obtained after administration of 100 cc of Omnipaque 350 IV contrast. Coronal and sagittal reformatted images were also provided. Total DLP is 1393.30 mGy*cm. This exam was initially interpreted by [facility]. FINDINGS: Status post median sternotomy with cardiomegaly and pericardial effusion. Parenchymal findings at the lung bases especially in the right lower lobe. The liver is normal in size with minimal dilatation of bile ducts in patient with prior cholecystectomy. No liver masses are noted. The spleen, pancreas, adrenal glands have an unremarkable appearance except for minimal thickening of the adrenal glands. 13 mm left midpole renal cyst with no definite renal or ureteral calculi. Calcification in the wall of the nondilated abdominal aorta with no adjacent adenopathy. 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 PEG tube with decompressed stomach. No dilatation of the small bowel. Limited evaluation of bowel without oral contrast. The there is increased fecal material in the colon with no evidence of definite diverticulitis, appendicitis, free air or free fluid. The prostate measures 50 mm in diameter contains calcifications with indentation the base of the urinary bladder. Associated bladder wall thickening. 32 mm asymmetric density in the left inguinal canal. Degenerative changes are noted. IMPRESSION: Status post median sternotomy with pericardial effusion and coronary artery calcifications. Right lower lobe pneumonia with fluid in the bronchi. Prior cholecystectomy with minimal dilatation of bile ducts which may be related to the prior surgery. 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 PEG tube in the stomach which is decompressed which makes it difficult to exclude possible diffuse wall thickening. Asymmetric density in the left inguinal canal which could be related to undescended testicle, etc. Correlation with physical exam recommended. The CT exam was performed using one or more of the following dose reduction techniques: Automated exposure control and adjustment of the mA and/or kV according to patient size. PROCEDURE INTERPRETED AT [facility] DEPARTMENT OF RADIOLOGY Final Report Signed by: Dr. Tiffanie Rich
--- NOTE | 2017-02-10 06:43 | CT Report ---
Exam: CT chest with contrast, PE study Date: 02/10/2017 Comparison: 01/09/2017 Reason: Shortness of breath Technique: Axial images of the chest were obtained after administration of 100 cc of IV Omnipaque 350 intravenous contrast. Coronal reformatted images were also acquired. The study was performed per pulmonary embolism protocol. Total DLP: 1393.30. This exam was initially interpreted by [facility]. Findings: The heart remains enlarged with pericardial effusion which measures 9 mm in depth on both exams. Prior median sternotomy with coronary artery calcifications. No definite pulmonary emboli are identified but there is suboptimal contrast in the subsegmental pulmonary arteries. No evidence of aortic dissection. Mediastinal and hilar lymph nodes which remain minimally enlarged with rather diffuse soft tissue density. Prior cholecystectomy with PEG tube. Degenerative changes are noted with bridging osteophytes. Reduced parenchymal findings in the lungs except in the right lower lobe right lower lobe where there is residual dense atelectasis/consolidation. There is associated bronchial obstruction. Impression: No evidence of pulmonary embolism. Limited contrast in the pulmonary arteries. Status post median sternotomy with stable pericardial effusion, coronary artery calcifications, and chest lymphadenopathy. Reduced parenchymal findings except in the right lower lobe where there is residual dense consolidation/atelectasis. There is associated bronchial obstruction which may be related to secretions but is difficult to exclude underlying endobronchial mass and follow-up is recommended to document clearing. This CT exam was performed using one or more the following dose reduction techniques: Automated exposure control, adjustment of the MA and/or KV according to patient size, or use of iterative reconstruction technique. PROCEDURE INTERPRETED AT [facility] DEPARTMENT OF RADIOLOGY Final Report Signed by: Dr. Tiffanie Rich
[2017-02-10] MEDS: ALBUTEROL/IPRATROPIUM 3 ML NEB RESP TX SCH ×5 (07:27→23:02)
--- NOTE | 2017-02-10 07:52 | Pulmonology Consult Note ---
Assessment and Plan (1) Aspiration pneumonia Status: Acute Assessment and plan: The patient probably does aspirate and should be kept n.p.o. at all times. He does have a PEG tube. He has a mild right lower lobe pneumonia now and should do okay with antibiotics and respiratory therapy. He is not having any distress now he can move to a regular room. Current Visit: Yes (2) Dementia of Alzheimer's type with behavioral disturbance Status: Acute Assessment and plan: The patient is a [facility] patient with end-stage dementia. He should be a DNR. Current Visit: No History of Present Illness Chief complaint: Aspiration History of present illness: Mr. Augustine is a 72 year old black male that has severe dementia in the [facility]. He has been in the hospital several times in January with aspiration pneumonia. He does have a feeding tube but I think they let him try to eat at the [facility]. He was sent back in last night because of shortness of breath. He does have a mild right lower lobe pneumonia. His O2 saturation dropped a little bit but they are back up now. He is not having any distress at the present time. He will talk occasionally but he is mainly just very confused. He does not look a lot different than he usually does now. Home Medications Medication Instructions Recorded Confirmed Type Atorvastatin [Lipitor] 40 mg PER TUBE 89901/09/15 01/26/17 History Carvedilol 3.125 mg PER TUBE BID 01/09/15 01/26/17 History Cholecalciferol (Vitamin D3) 1,000 unit PER TUBE DAILY 01/09/15 01/26/17 History [Vitamin D3 Chew Tab] Cyanocobalamin (Vitamin B-12) 1,000 mcg PER TUBE 89901/09/15 01/26/17 History [Vitamin B-12] Docusate Sodium Cap [Colace Cap] 100 mg PER TUBE 89901/09/15 01/26/17 History Montelukast Tab [Singulair Tab] 10 mg PER TUBE BEDTIME 01/09/15 01/26/17 History Multivitamin [One Daily] 1 tablet PER TUBE 89901/09/15 01/26/17 History Tamsulosin [Flomax] 0.4 mg PER TUBE PC BREAKFAST 01/10/15 01/26/17 History Famotidine 20 mg PER TUBE 89901/12/15 01/26/17 History Ferrous Sulfate 325 mg PER TUBE BID 07/19/16 01/26/17 History Gabapentin Cap/Tab [Neurontin 400 mg PER TUBE TID 07/19/16 01/26/17 History Cap/Tab] Tramadol HCl [Tramadol Tab] 50 mg PER TUBE TID 07/19/16 01/26/17 History risperiDONE [Risperidone] 0.5 mg PER TUBE TID 01/09/17 01/26/17 History Acetaminophen 650 mg PER TUBE Q4H PRN 01/26/17 01/26/17 History Alum/Mag/Simeth Liquid [Mylanta 10 ml PER TUBE Q6H PRN 01/26/17 01/26/17 History Liquid] Amlodipine Besylate 5 mg PER TUBE 0900 01/26/17 01/26/17 History Amoxicillin/Clav Liquid [Augmentin 300 mg PER TUBE Q12HR 01/26/17 01/26/17 History Es Liquid] Donepezil [Aricept] 10 mg PER TUBE BEDTIME 01/26/17 01/26/17 History Memantine [Namenda] 10 mg PER TUBE BID 01/26/17 01/26/17 History Potassium Chloride Liquid 20 meq PER TUBE 0900 01/26/17 01/26/17 History clonazePAM TAB [KlonoPIN] 0.5 mg PER TUBE TID 01/26/17 01/26/17 History levoFLOXacin [Levaquin Liquid] 500 mg PER TUBE DAILY #7 ml 02/01/17 Rx Allergies Allergy/AdvReac Type Severity Reaction Status Date / Time olanzapine [From Zyprexa] Allergy Unknown/Unable Verified 01/26/17 14:03 to obtain ROS unobtainable: due to dementia (He really cannot give much history.) Exam (Pulmon) H&P - Constitutional Vitals: Period Temp Pulse Resp BP Sys/Bowling Pulse Ox Last 24 Hr 99.8 F-100.0 F 98-117 16-24 113-146/71-79 91-100 General appearance: normal weight, no acute distress (He is resting comfortably on low-flow oxygen.) - Head Head exam: Present: normal inspection, normocephalic - Eye Eye exam: Present: EOMI. Absent: scleral icterus Pupils: Present: TYRONE - ENT ENT exam: Present: other (He has dry mucous membranes) - Neck Neck exam: Present: meningismus (He is very rigid.). Absent: thyromegaly - Respiratory Respiratory exam: Present: decreased breath sounds (He has somewhat diminished breath sounds but is moving air okay at present.), rhonchi. Absent: accessory muscle use - Cardiovascular Cardiovascular exam: Present: regular rate and rhythm. Absent: gallop, systolic murmur - GI/Abdominal GI/Abdominal exam: Present: normal bowel sounds, soft, other (He does have a PEG tube in place.). Absent: organomegaly, tenderness - Extremities Exam Extremities exam: Present: other (His extremities are somewhat rigid.). Absent : calf tenderness, edema - Neurological Exam Neurological exam: Present: altered (He is always a little confused.) - Psychiatric Psychiatric exam: Absent: anxious - Skin Skin exam: Present: warm, dry Medical,Surgical,& Family Hx - Medical History Cardio: History of: Cerebrovascular Disease ( reports unknown), CAD, Hypertension Psychological: History of: Behavior Problems (pulled Iv out of arm, hitting others with aggression), Psychiatric Problems (Delusions-believes he is still able to work at times and he at work) No history of: Violent Behavior Neurology: History of: Cerebrovascular Accident, Dementia No history of: Seizures Endocrine: History of: Dyslipidemia No history of: Diabetes Mellitus (IDDM) Respiratory: History of: Pneumonia, Respiratory Problems (ASPIRATION PNEUMONIA) Genitourinary: History of: Problems (incontinet) Gastrointestinal: History of: GI Problems (PEG/ dysphagia) Musculoskeletal: History of: Musculoskeletal Problems (poor mobility) - Surgical History Cardiac Surgeries: Sugical HX of: Cardiac Surgery Thoracic Surgeries: Patient denies;: Organ Transplant - Family History Family History: Reports;: Family Hypertension - Social History Smoking Status: Unknown if ever smoked Frequency of Alcohol Use: None Type of Drug Use: None Results - Labs CBC & BMP: 02/10/17 03:52 02/10/17 03:52 Labs: Her PO2 is 69 with a PCO2 of 38 and a pH of 7.46 - Diagnostic Findings Procedure: Chest x-ray: image reviewed by me, report reviewed by me (Chest x- ray shows a mild right lower lobe infiltrate.)
[2017-02-10] MEDS: CLINDAMYCIN INJ 600 MG in PREMIX 1 EACH IV SCH ×2 (13:28→18:00)
[2017-02-10] MEDS: ZINC OXIDE PASTE 113 GM TUBE TOP SCH ×2 (13:28→21:20)
[2017-02-10] MEDS: clonazePAM 0.5 MG TABLET PER TUBE SCH ×2 (13:40→21:14)
[2017-02-10] MEDS: TAMSULOSIN 0.4 MG CAPSULE PO SCH (13:40)
[2017-02-10] MEDS: CARVEDILOL 3.125 MG TABLET PER TUBE SCH ×2 (13:40→21:14)
[2017-02-10] MEDS: ATORVASTATIN 40 MG TABLET PER TUBE SCH (13:40)
[2017-02-10] MEDS: CHOLECALCIFEROL 1,000 UNIT TABLET PER TUBE SCH (13:40)
[2017-02-10] MEDS: FAMOTIDINE 20 MG TABLET PER TUBE SCH (13:40)
--- NOTE | 2017-02-10 14:46 | Hospitalist Progress Note ---
Assessment and Plan (1) Sepsis Status: Acute Assessment and plan: ua negative, blood cx pending, aspiration pneumonia, cont clindamycin and levaquin Current Visit: No Qualifiers: Sepsis type: sepsis due to unspecified organism Qualified Code(s): A41.9 - Sepsis, unspecified organism (2) Hypotension Status: Acute Assessment and plan: resolved, restart coreg, stable for transfer to floor Current Visit: No (3) Aspiration pneumonia Status: Acute Assessment and plan: Continue Levaquin and clindamycin. Dr. Dawson from pulmonary following Current Visit: Yes (4) Major neurocognitive disorder, due to Alzheimer's disease, with behavioral disturbance, mild Status: Acute Assessment and plan: cont aricept but hold namenda Current Visit: No Hospitalist: Subjective Interval history: Patient has had multiple admissions for aspiration. We believe that family is still trying to feed him even though he needs to be strictly n.p.o. When I found this morning his eyes were rolled up to the top of his head but he did groan to sternal rub. We did order an EEG and consult for Dr. More but Dr. More is on diversion Exam - Constitutional Vitals: Period Temp Pulse Resp BP Sys/Bowling Pulse Ox Last 24 Hr 97.5 F-100.0 F 82-117 16-28 89-146/58-83 91-100 Exam: Heart Rate-[RRR] Lungs-[diminished with rhonchi] GI-[+bs soft, NT] Neuro groans to pain psych [depressed mood and flat affect] General [no acute distress] Results - Labs CBC & BMP: 02/10/17 03:52 02/10/17 03:52 Lab Results: I have reviewed the past 24 hour labs Labs: lactic acid 2.1 - Diagnostic Findings Procedure: CT - chest: report reviewed by me ( No evidence of pulmonary embolism. Limited contrast in)
[2017-02-10] MEDS ORDERED: LEVOFLOXACIN INJ 750 MG in PREMIX 1 EACH IV SCH (20:00)
[2017-02-10] MEDS: DONEPEZIL 10 MG TABLET PER TUBE SCH (21:14)
[2017-02-11] MEDS: CLINDAMYCIN INJ 600 MG in PREMIX 1 EACH IV SCH ×3 (00:56→11:56)
[2017-02-11] MEDS: ALBUTEROL/IPRATROPIUM 3 ML NEB RESP TX SCH ×6 (02:20→22:47)
[2017-02-11 03:13] LABS: ABG Base Excess 2.9 MMOL/L (-2.5-2.5); ABG HCO3 26.2 MMOL/L (20-26); ABG Oxygen Saturation 97.2 % (95-100); ABG PCO2 35.8 MM HG (35-48); ABG PH 7.482 (7.35-7.45); ABG PO2 90.3 MM HG (80-95); ABG TCO2 27.3 MMOL/L (23-27); Allen Test Positive
[2017-02-11 04:38] LABS: Basophils % 0.2 % (0.0-0.8); Eosinophils # 0.1 10*3/uL (0.0-0.87); Eosinophils % 0.8 % (0.00-10.9); Hemoglobin 12.3 GM/DL (14.0-18.0); Immature Granulocytes % 0.5 %; Immature Granulocytes Absolute 0.05 #; Lymphocytes # 1.1 10*3/uL (1.4-4.0); Mean Corpuscular HGB Conc 33.2 GM/DL (32-36); Mean Corpuscular Hemoglobin 29 PG (27-34); Mean Corpuscular Volume 88.1 FL (87-102); Mean Platelet Volume 11.7 FL (9.6-12.0); Monocytes # 0.9 10*3/uL (0.11-0.8); Monocytes % 9.3 % (1.7-12.7); Neutrophils # 7.7 10*3/uL (1.4-7.4); Neutrophils % 78.2 % (38.7-73.9); Platelet Count 153 T/CUMM (130-400); Red Cell Distribution Width 13.6 % (9.3-17.3); White Blood Count 9.9 T/CUMM (4-12)
[2017-02-11 05:08] LABS: Albumin 2.4 G/DL (3.4-5.0); Bilirubin,Total 2.6 MG/DL (0.2-1.0); Calcium 8.5 MG/DL (8.5-10.1); Osmolality,Calculated 271.8 MOS/KG (273-304); Potassium 3.8 MMOL/L (3.5-5.1); Total Protein 6.6 G/DL (6.4-8.3)
[2017-02-11 05:23] LABS: Hypochromasia 1+; Microcytosis Slight; Platelet Estimate Adequate
[2017-02-11] MEDS: ENOXAPARIN 40 MG/0.4 ML SYRINGE SUBCUT SCH (09:27)
[2017-02-11] MEDS: clonazePAM 0.5 MG TABLET PER TUBE SCH ×2 (09:29→20:26)
[2017-02-11] MEDS: FAMOTIDINE 20 MG TABLET PER TUBE SCH (09:29)
[2017-02-11] MEDS: ATORVASTATIN 40 MG TABLET PER TUBE SCH (09:29)
[2017-02-11] MEDS: CARVEDILOL 3.125 MG TABLET PER TUBE SCH ×2 (09:29→20:26)
[2017-02-11] MEDS: CHOLECALCIFEROL 1,000 UNIT TABLET PER TUBE SCH (09:29)
[2017-02-11] MEDS: TAMSULOSIN 0.4 MG CAPSULE PO SCH (09:30)
--- NOTE | 2017-02-11 10:14 | XRay Report ---
Portable chest February 11, 2017 Indication: Shortness breath Comparison images from previous day at 0529 hours Findings: Cardiomediastinal contours are stable with evidence for prior coronary artery bypass graft. Partial clearing of the right basilar consolidation. Left lung remains well aerated. No acute osseous abnormalities. Impression: Partial clearing of the right basilar consolidation PROCEDURE INTERPRETED AT [facility] DEPARTMENT OF RADIOLOGY Final Report Signed by: Vineet Gracia
--- NOTE | 2017-02-11 11:56 | Hospitalist Progress Note ---
Assessment and Plan (1) Healthcare associated bacterial pneumonia Status: Acute Assessment and plan: We will broaden antibiotic coverage for this patient regarding this problem. Discontinue clindamycin and discontinue levofloxacin. Put the patient on meropenem 1 g every 12. She does have history of strokes in the past and therefore at risk for seizures lasting need to stress the dose of meropenem. Add vancomycin 1.25 g every 12 hours. Get pharmacy consultation for pharmacokinetics of vancomycin and subsequent dosing. Negative length levels should be 15 mcg/mL. Current Visit: Yes (2) Acute respiratory failure with hypoxia Status: Acute Assessment and plan: This is better at this time. Patient's repeat arterial blood gas shows a PO2 of 90. Supplemented with nasal cannula oxygen she is maintaining his saturations well. Still has significant rhonchi bilaterally. Current Visit: Yes (3) Aspiration into airway Status: Acute Assessment and plan: Try to raise the head of bed about 40 at all times. Pulmonary this patient is contracted and tend to slide off the ankle. Current Visit: Yes (4) Dementia Status: Chronic Current Visit: No Qualifiers: Dementia type: Alzheimer's disease Alzheimer's disease onset: unspecified onset Dementia behavioral disturbance: with behavioral disturbance Qualified Code(s): G30.8 - Other Alzheimer's disease; F02.81 - Dementia in other diseases classified elsewhere with behavioral disturbance Hospitalist: Subjective Interval history: Patient has been seen interviewed and examined and chart has been reviewed. In review of the patient's noticed appears that he has been in and out of the hospital 2 times last month including a discharge which was on the last week. Presents to the hospital this time with hypoxic respiratory failure discovered over right lower lobe pneumonia suspicious for aspiration. 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 In reading the notes from the [facility] it appears they were trying to feeding by mouth for some reason. Because of recurrent pneumonias and preceding hospitalization I would treat this pneumonia as a healthcare associated pneumonia; that because for broadening of antibiotic coverage. Exam - Constitutional Vitals: Period Temp Pulse Resp BP Sys/Bowling Pulse Ox Last 24 Hr 97.1 F-98.5 F 67-98 18-25 87-138/52-76 93-100 General appearance: normal weight, other (Marginal cognitive output poor communication) - Head Head exam: Present: normocephalic, atraumatic - Eye Eye exam: Present: other (Cannot assess adequate) - ENT ENT exam: Present: other (Patient does have upper airway secretions of the poor gag) - Neck Neck exam: Present: other (He is stiff all over including limbs so is the neck) - Respiratory Respiratory exam: Present: other (Bilateral crackles mostly rhonchi on the right side) - Cardiovascular Cardiovascular exam: Present: regular rate and rhythm, other (Sinus control on monitor tracings) - GI/Abdominal GI/Abdominal exam: Present: normal bowel sounds, soft (Patient is a PEG tube in place.) - Extremities Exam Extremities exam: Present: other (Contracted stiff limbs. There is no cogwheeling noted) - Neurological Exam Neurological exam: Present: other (Marginal cognitive output does try to respond to name call with the dysarthria) - Psychiatric Psychiatric exam: Present: other (Organic mental syndrome) - Skin Skin exam: Present: normal color, warm, dry Results - Labs CBC & BMP: 02/11/17 03:41 02/11/17 03:41 Lab Results: I have reviewed the past 24 hour labs
[2017-02-11] MEDS: MEROPENEM 1,000 MG in SODIUM CHLORIDE 0.9% 100 ML IV SCH (14:36)
[2017-02-11] MEDS: VANCOMYCIN INJ 1,000 MG in SODIUM CHLORIDE 0.9% 250 ML IV SCH (15:23)
--- NOTE | 2017-02-11 15:55 | Pulmonology Progress Note ---
Pulmonary - PN: Subj Interval history: This 72-year-old black male residential patient who has dementia. He is on tube feedings. Check with the nurses and they are not let him eat. Aspirations a significant problem for him. This is his third episode of aspiration pneumonia. He looks a little better. His chest x-ray shows a right lower lung infiltrate. Blood cultures are growing a gram-positive cocci. ABGs on FiO2 28% show pH 7.48, PCO2 35.8, PO2 90.3 and a bicarb of 26.2. Electrolytes are normal. Creatinine is 0.6 with a BUN of 11. White count is 9900. H&H 12.3/37.0 and platelets are 153,000. Vital signs. See below General. The patient is no distress Chest reveals some mild loose large airway congestion Heart no gallop Abdomen nondistended. PEG site looks fine. There are bowel sounds. Extremities show no deep venous thrombophlebitis. Face symmetrical. No edema of the lips or tongue. Neck. No meningismus. Plan. 1. See my note above. 2. Continue present regimen Exam (Progress Note) - Constitutional Vitals: Period Temp Pulse Resp BP Sys/Bowling Pulse Ox Last 24 Hr 97.1 F-98.5 F 67-98 18-22 101-138/52-76 93-100 Results - Labs CBC & BMP: 02/11/17 03:41 02/11/17 03:41
[2017-02-11] MEDS: ZINC OXIDE PASTE 113 GM TUBE TOP SCH ×2 (17:39→20:29)
[2017-02-11] MEDS: DONEPEZIL 10 MG TABLET PER TUBE SCH (20:26)
[2017-02-12] MEDS: ALBUTEROL/IPRATROPIUM 3 ML NEB RESP TX SCH ×5 (02:36→19:50)
[2017-02-12] MEDS: MEROPENEM 1,000 MG in SODIUM CHLORIDE 0.9% 100 ML IV SCH ×2 (03:07→14:54)
[2017-02-12] MEDS: VANCOMYCIN INJ 1,000 MG in SODIUM CHLORIDE 0.9% 250 ML IV SCH ×2 (04:07→15:59)
--- NOTE | 2017-02-12 08:52 | Hospitalist Progress Note ---
Hospitalist: Subjective Interval history: No significant overnight events noted/ reported. Pt nonverbal. No family at bedside. Tolerating tubefeeds at goal. No BM since admission. Exam - Constitutional Vitals: Period Temp Pulse Resp BP Sys/Bowling Pulse Ox Last 24 Hr 96.4 F-97.8 F 50-95 17-22 101-157/46-93 94-99 Exam: GEN: Awake, alert. Pt nonverbal and does not follow commands. Lying in bed in NAD HEENT: no thrush. Clear sclera CV: RRR no M/R/G LUNGS: CTAB anteriorly nonlabored, diminished at the bases ABD: Soft, NT, ND, +BS +PEG EXT: Warm. no clubbing, cyanosis or edema. SCDs in place. Results - Labs CBC & BMP: 02/11/17 03:41 02/11/17 03:41 Labs: 02/10 blood culture positive for gram-positive cocci in 2 out of 2 bottles MRSA test on the blood culture was negative MRSA screen is positive 02/10 urine culture no growth to date at 24 hours - Impressions (1) Healthcare associated bacterial pneumonia (concerning for possible MRSA and GNR) and possible aspiration Status: Acute Assessment and plan: Continue IV vancomycin and Merrem for now. Follow-up blood cultures. Pharmacy dosing the vancomycin. Continue bronchodilators and pulmonary toileting. Oxygen as needed. Current Visit: Yes (2) Acute respiratory failure with hypoxia-improving Status: Acute Assessment and plan: Continue oxygen as needed. Current Visit: Yes (3) Dysphagia Status: Acute Assessment and plan: Continue aspiration precautions. N.p.o. Tube feeds per nutrition recommendations Current Visit: Yes (4) Dementia Status: Chronic Current Visit: No Qualifiers: Dementia type: Alzheimer's disease Alzheimer's disease onset: unspecified onset Dementia behavioral disturbance: with behavioral disturbance Qualified Code(s): G30.8 - Other Alzheimer's disease; F02.81 - Dementia in other diseases classified elsewhere with behavioral disturbance -Continue home meds as currently ordered DVT prophylaxis-Lovenox SQ D/W nursing staff. I will be away several days. One of my associates will follow in my absence.
[2017-02-12] MEDS: ZINC OXIDE PASTE 113 GM TUBE TOP SCH ×2 (09:38→21:33)
[2017-02-12] MEDS: TAMSULOSIN 0.4 MG CAPSULE PO SCH (09:43)
[2017-02-12] MEDS: ENOXAPARIN 40 MG/0.4 ML SYRINGE SUBCUT SCH (09:43)
[2017-02-12] MEDS: clonazePAM 0.5 MG TABLET PER TUBE SCH ×2 (09:44→21:33)
[2017-02-12] MEDS: CARVEDILOL 3.125 MG TABLET PER TUBE SCH ×2 (09:44→21:33)
[2017-02-12] MEDS: ATORVASTATIN 40 MG TABLET PER TUBE SCH (09:44)
[2017-02-12] MEDS: CHOLECALCIFEROL 1,000 UNIT TABLET PER TUBE SCH (09:44)
[2017-02-12] MEDS: FAMOTIDINE 20 MG TABLET PER TUBE SCH (09:44)
--- NOTE | 2017-02-12 12:47 | Pulmonology Progress Note ---
Pulmonary - PN: Subj Interval history: This 72-year-old black male shelter patient who has dementia. He is on tube feedings. Check with the nurses and they are not let him eat. Aspirations a significant problem for him. This is his third episode of aspiration pneumonia. He looks a little better. His chest x-ray shows a right lower lung infiltrate. Blood cultures are growing a gram-positive cocci. ABGs on FiO2 28% show pH 7.48, PCO2 35.8, PO2 90.3 and a bicarb of 26.2. Electrolytes are normal. Creatinine is 0.6 with a BUN of 11. White count is 9900. H&H 12.3/37.0 and platelets are 153,000. 02/12/2017. This patient had an uneventful night. His status is unchanged. Chest x-ray from 02/11/2017 showed some faint increased interstitial markings in the medial basal segment on the right. There is no heart failure no other abnormalities are noted. No ABGs or lab work ordered for today. Vital signs. See below General. The patient is no distress Chest reveals some mild loose large airway congestion Heart no gallop Abdomen nondistended. PEG site looks fine. There are bowel sounds. Extremities show no deep venous thrombophlebitis. Face symmetrical. No edema of the lips or tongue. Neck. No meningismus. Plan. 02/11/2017 1. See my note above. 2. Continue present regimen 02/12/2017 1. See today's note above. 2. Continue present regimen Exam (Progress Note) - Constitutional Vitals: Period Temp Pulse Resp BP Sys/Bowling Pulse Ox Last 24 Hr 96.4 F-97.6 F 50-95 16-24 119-157/46-93 94-100 Results - Labs CBC & BMP: 02/11/17 03:41 02/11/17 03:41
--- NOTE | 2017-02-12 15:55 | Neurology Consult Note ---
History of Present Illness History of present illness: Patient is unable to provide me any history. History basically obtained from the chart. Mr. Augustine who is a 72 year old -[place] gentleman who presents to the emergency department with chief complaint of shortness of breath per detention staff. Patient was recently discharged on January 17 and February 01 for bilateral aspiration pneumonia. Both visits he was placed in the ICU. During the January 17 visit, he was not intubated and managed on supplemental oxygen only. On the February 01 visit, he was intubated with ventilator support for several days. He was sent back to the detention on antibiotics. EMS picked him up and reported oxygen saturations in the low 80s on room air. group home staff told EMS there was a good chance he could have aspirated again. Patient's oxygen saturations on 3 L via nasal cannula ranged from 92-94%. Chest x-ray right lower lobe consolidation. Patient's baseline is not clear at this point. There was a question that he might had some seizure as well. He has no history of seizures though. He also had a history of stroke in the past. Home Medications Medication Instructions Recorded Confirmed Type Atorvastatin [Lipitor] 40 mg PER TUBE DAILY 01/09/15 02/11/17 History Carvedilol 3.125 mg PER TUBE BID 01/09/15 02/10/17 History Cholecalciferol (Vitamin D3) 1,000 unit PER TUBE DAILY 01/09/15 02/11/17 History [Vitamin D3 Chew Tab] Cyanocobalamin (Vitamin B-12) 1,000 mcg PER TUBE DAILY 01/09/15 02/11/17 History [Vitamin B-12] Docusate Sodium Cap [Colace Cap] 100 mg PER TUBE DAILY 01/09/15 02/11/17 History Montelukast Tab [Singulair Tab] 10 mg PER TUBE BEDTIME 01/09/15 02/11/17 History Multivitamin [One Daily] 1 tablet PER TUBE DAILY 01/09/15 02/11/17 History Tamsulosin [Flomax] 0.4 mg PER TUBE DAILY 01/10/15 02/11/17 History Famotidine 20 mg PER TUBE DAILY 01/12/15 02/11/17 History Gabapentin Cap/Tab [Neurontin 400 mg PER TUBE TID 07/19/16 02/11/17 History Cap/Tab] Tramadol HCl [Tramadol Tab] 50 mg PER TUBE TID 07/19/16 02/11/17 History risperiDONE [Risperidone] 0.5 mg PER TUBE TID 01/09/17 02/11/17 History Acetaminophen 650 mg PER TUBE Q4H PRN 01/26/17 02/11/17 History Amlodipine Besylate 5 mg PER TUBE DAILY 01/26/17 02/11/17 History Donepezil [Aricept] 10 mg PER TUBE BEDTIME 01/26/17 02/11/17 History Memantine [Namenda] 10 mg PER TUBE BID 01/26/17 02/11/17 History Potassium Chloride Liquid 20 meq PER TUBE DAILY 01/26/17 02/11/17 History clonazePAM TAB [KlonoPIN] 0.5 mg PER TUBE TID 01/26/17 02/10/17 History Hydrocodone/Acetaminophen 1 each PER TUBE Q6HR PRN 02/11/17 02/11/17 History [Hydrocodon-Acetaminophen 5-325] LORazepam [Lorazepam] 0.5 mg PO TID 02/11/17 02/11/17 History Quetiapine Fumarate [Quetiapine 25 mg PER TUBE BEDTIME 02/11/17 02/11/17 History Fumarate] Allergies Allergy/AdvReac Type Severity Reaction Status Date / Time olanzapine [From Zyprexa] Allergy Unknown/Unable Verified 01/26/17 14:03 to obtain ROS unobtainable: due to mental status Medical,Surgical,& Family Hx - Medical History Cardio: History of: Cerebrovascular Disease ( reports unknown), CAD, Hypertension Psychological: History of: Behavior Problems (pulled Iv out of arm, hitting others with aggression), Psychiatric Problems (Delusions-believes he is still able to work at times and he at work) No history of: Violent Behavior Neurology: History of: Cerebrovascular Accident, Dementia No history of: Seizures Endocrine: History of: Dyslipidemia No history of: Diabetes Mellitus (IDDM) Respiratory: History of: Pneumonia, Respiratory Problems (ASPIRATION PNEUMONIA) Genitourinary: History of: Problems (incontinet) Gastrointestinal: History of: GI Problems (PEG/ dysphagia) Musculoskeletal: History of: Musculoskeletal Problems (poor mobility) - Surgical History Cardiac Surgeries: Sugical HX of: Cardiac Surgery Thoracic Surgeries: Patient denies;: Organ Transplant - Family History Family History: Reports;: Family Hypertension - Social History Smoking Status: Unknown if ever smoked Frequency of Alcohol Use: None Type of Drug Use: None Exam - Constitutional Vitals: Period Temp Pulse Resp BP Sys/Bowling Pulse Ox Last 24 Hr 96.4 F-97.6 F 50-95 16-24 119-157/46-93 94-100 Exam: GENERAL: Patient is in no acute distress. NECK: Neck is supple. There is no JVD. No carotid bruits present. No thyroid masses. CVS: First and second heart sounds are normal. There is no S3 present. Regular rate and rhythm. RESPIRATORY: Lungs are clear to auscultation without any rales or rhonchi. ABDOMEN: Soft and non-tender. Bowel sounds are present. There is no hepatosplenomegaly. EXT: There is no palpable edema. Peripheral pulses are present. Skin: No rashes Central Nervous system: General: Awake, eyes are open but not following any commands Speech: None Comprehension: Impaired Facial expressions: Normal Cranial Nerves: Pupils are equally reactive to light. Doll's head eye movements are positive. Motor: Some hypertonia in all 4 extremities Strength cannot be assessed Sensory: Cannot be assessed Reflexes: 1+ and symmetrical Cerebellar function: Cannot be assessed Toes: Equivocal Gait: Cannot be assessed Results - Labs CBC & BMP: 02/11/17 03:41 02/11/17 03:41 Assessment and Plan (1) Altered mental status Status: Acute Assessment and plan: This could very well be due to infectious encephalopathy versus decompensated dementia. Seizure would be less likely but cannot be excluded entirely. We will perform EEG and CT of the head Current Visit: Yes (2) Major neurocognitive disorder, due to Alzheimer's disease, with behavioral disturbance, mild Status: Acute Assessment and plan: Continue Aricept for now Current Visit: No
[2017-02-12] MEDS: DONEPEZIL 10 MG TABLET PER TUBE SCH (21:33)
[2017-02-13] MEDS: ALBUTEROL/IPRATROPIUM 3 ML NEB RESP TX SCH ×6 (00:04→20:23)
[2017-02-13] MEDS: MEROPENEM 1,000 MG in SODIUM CHLORIDE 0.9% 100 ML IV SCH ×2 (02:08→20:45)
[2017-02-13] MEDS: VANCOMYCIN INJ 1,000 MG in SODIUM CHLORIDE 0.9% 250 ML IV SCH ×2 (04:25→17:09)
[2017-02-13 04:34] LABS: Calcium 8.5 MG/DL (8.5-10.1); Magnesium 2.2 MG/DL (1.8-2.4); Osmolality,Calculated 286.8 MOS/KG (273-304); Phosphorous 3.5 MG/DL (2.5-4.9); Potassium 3.2 MMOL/L (3.5-5.1); Prealbumin 12.9 MG/DL (20-40)
[2017-02-13] MEDS: clonazePAM 0.5 MG TABLET PER TUBE SCH ×2 (09:06→20:44)
[2017-02-13] MEDS: CHOLECALCIFEROL 1,000 UNIT TABLET PER TUBE SCH (09:06)
[2017-02-13] MEDS: FAMOTIDINE 20 MG TABLET PER TUBE SCH (09:06)
[2017-02-13] MEDS: CARVEDILOL 3.125 MG TABLET PER TUBE SCH ×2 (09:06→20:44)
[2017-02-13] MEDS: TAMSULOSIN 0.4 MG CAPSULE PO SCH (09:06)
[2017-02-13] MEDS: ENOXAPARIN 40 MG/0.4 ML SYRINGE SUBCUT SCH (09:06)
[2017-02-13] MEDS: ATORVASTATIN 40 MG TABLET PER TUBE SCH (09:06)
--- NOTE | 2017-02-13 09:53 | Hospitalist Progress Note ---
Assessment and Plan - Time spent with patient Time spent with patient: Less than 30 minutes (1) Aspiration pneumonia Status: Acute Assessment and plan: 02/13/17 Continue to follow Blood cultures for final. -Preliminary Positive for Gram Positive Cocci: continue Vanc & Meropenem -Pulmonary following and greatly appreciate assistance with care -Urine culture negative -repeat a.m. labs -continue to keep patient NPO -continue PEG tube feedings as tolerated and monitor closely Current Visit: Yes (2) Dementia of Alzheimer's type with behavioral disturbance Status: Acute Assessment and plan: 02/13/17 - Mild. Patient alert and very pleasant this a.m -continue Aricept -Neurology: following: ordered CT of head and EEG - pending reports Current Visit: No (3) Hypotension Status: Acute Assessment and plan: 02/13/17 - Resolved -continue to monitor, continued Coreg Current Visit: No (4) Sepsis Status: Acute Assessment and plan: 02/13/17 UA culture negative -continue to monitor for final blood cultures -continue antibiotics (vanc & merrem) -pharmacy dosing vanc -continue bronchodilators -continue oxygen supplementation as needed Current Visit: No Qualifiers: Sepsis type: sepsis due to unspecified organism Qualified Code(s): A41.9 - Sepsis, unspecified organism Hospitalist: Subjective Interval history: Mr Augustine seen and chart reviewed. Patient has a history of organic mental syndome and resides in senior care. Family was not at bedside. He was in no acute distress. I explained that I had come to check on him and see how he was feeling this morning. He verbalized feeling "good" this morning with slowness in conversation. Patient was very pleasant and thanked me for being " so nice". Exam - Constitutional Vitals: Period Temp Pulse Resp BP Sys/Bowling Pulse Ox Last 24 Hr 96.6 F-98.7 F 51-90 16-24 99-165/58-87 91-100 General appearance: normal weight, no acute distress - Head Head exam: Present: normal inspection - Eye Pupils: Present: TYRONE - Neck Neck exam: Present: other (stiff) - Respiratory Respiratory exam: Present: rhonchi. Absent: stridor, wheezes - Cardiovascular Cardiovascular exam: Present: regular rate and rhythm - GI/Abdominal GI/Abdominal exam: Present: normal bowel sounds, soft. Absent: tenderness, rebound - Extremities Exam Extremities exam: Present: other (contracted stiff limbs). Absent: edema - Neurological Exam Neurological exam: Present: alert - Psychiatric Psychiatric exam: Present: other (history organic brain syndrome; very pleasant patient at time of exam). Absent: agitated, anxious - Skin Skin exam: Present: normal color, warm, dry Results - Labs CBC & BMP: 02/11/17 03:41 02/13/17 03:40 Lab Results: I have reviewed the past 24 hour labs
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
[2017-02-13] MEDS: ZINC OXIDE PASTE 113 GM TUBE TOP SCH ×2 (11:59→20:45)
--- NOTE | 2017-02-13 12:48 | Pulmonology Progress Note ---
Pulmonary - PN: Subj Interval history: This 72-year-old black male care home patient who has dementia. He is on tube feedings. Check with the nurses and they are not let him eat. Aspirations a significant problem for him. This is his third episode of aspiration pneumonia. He looks a little better. His chest x-ray shows a right lower lung infiltrate. Blood cultures are growing a gram-positive cocci. ABGs on FiO2 28% show pH 7.48, PCO2 35.8, PO2 90.3 and a bicarb of 26.2. Electrolytes are normal. Creatinine is 0.6 with a BUN of 11. White count is 9900. H&H 12.3/37.0 and platelets are 153,000. 02/12/2017. This patient had an uneventful night. His status is unchanged. Chest x-ray from 02/11/2017 showed some faint increased interstitial markings in the medial basal segment on the right. There is no heart failure no other abnormalities are noted. No ABGs or lab work ordered for today. 02/13/2017. Today the patient had a CT of the head. This showed no acute abnormalities. There was generalized atrophy and underlying microangiopathic small vessel ischemic changes which are stable compared to her previous film. Sodium is 144. Potassium 3.2. Patient's on replacement protocol. He appears stable. I have ordered lab and chest x-ray for tomorrow Vital signs. See below General. The patient is no distress Chest reveals some mild loose large airway congestion Heart no gallop Abdomen nondistended. PEG site looks fine. There are bowel sounds. Extremities show no deep venous thrombophlebitis. Face symmetrical. No edema of the lips or tongue. Neck. No meningismus. Plan. 02/11/2017 1. See my note above. 2. Continue present regimen 02/12/2017 1. See today's note above. 2. Continue present regimen 02/13/2017. 1. CT of the head. 2. Lab and chest x-ray for tomorrow morning. Exam (Progress Note) - Constitutional Vitals: Period Temp Pulse Resp BP Sys/Bowling Pulse Ox Last 24 Hr 96.6 F-98.7 F 51-90 17-22 99-165/58-87 91-100 Results - Labs CBC & BMP: 02/11/17 03:41 02/13/17 03:40
[2017-02-13] MEDS: POTASSIUM CHLORIDE 20 MEQ/15 ML UDCUP PEG SCH ×3 (13:48→20:45)
--- NOTE | 2017-02-13 17:34 | Neurology Progress Note ---
Neurology - PN : Subjective Interval history: Patient seems to be doing a little better. He is slightly more alert and awake and trying to talk. EEG revealed generalized slowing but no seizure activity. Exam (Progress Note) - Constitutional Vitals: Period Temp Pulse Resp BP Sys/Bowling Pulse Ox Last 24 Hr 96.6 F-98.7 F 51-90 17-22 105-165/60-87 91-100 Exam: GENERAL: Patient is in no acute distress. NECK: Neck is supple. There is no JVD. No carotid bruits present. No thyroid masses. CVS: First and second heart sounds are normal. There is no S3 present. Regular rate and rhythm. RESPIRATORY: Lungs are clear to auscultation without any rales or rhonchi. ABDOMEN: Soft and non-tender. Bowel sounds are present. There is no hepatosplenomegaly. EXT: There is no palpable edema. Peripheral pulses are present. Skin: No rashes Central Nervous system: General: Awake, eyes are open but not following any commands Speech: None Comprehension: Impaired Facial expressions: Normal Cranial Nerves: Pupils are equally reactive to light. Doll's head eye movements are positive. Motor: Some hypertonia in all 4 extremities Strength cannot be assessed Sensory: Cannot be assessed Reflexes: 1+ and symmetrical Cerebellar function: Cannot be assessed Toes: Equivocal Gait: Cannot be assessed Results - Labs CBC & BMP: 02/11/17 03:41 02/13/17 03:40 Assessment and Plan (1) Altered mental status Status: Acute Assessment and plan: This could very well be due to infectious encephalopathy versus decompensated dementia. Seizure would be less likely but cannot be excluded entirely. EEG is unremarkable for seizure activity. Continue current supportive management. Current Visit: Yes (2) Major neurocognitive disorder, due to Alzheimer's disease, with behavioral disturbance, mild Status: Acute Assessment and plan: Continue Aricept for now Current Visit: No
[2017-02-13] MEDS: DONEPEZIL 10 MG TABLET PER TUBE SCH (20:44)
[2017-02-14] MEDS: ALBUTEROL/IPRATROPIUM 3 ML NEB RESP TX SCH ×7 (01:54→23:00)
[2017-02-14] MEDS: VANCOMYCIN INJ 1,000 MG in SODIUM CHLORIDE 0.9% 250 ML IV SCH ×2 (04:12→16:24)
[2017-02-14 05:38] LABS: Basophils % 0.9 % (0.0-0.8); Eosinophils # 0.2 10*3/uL (0.0-0.87); Eosinophils % 3.5 % (0.00-10.9); Hematocrit 34.8 VOL% (42.0-52.0); Hemoglobin 11.7 GM/DL (14.0-18.0); Immature Granulocytes % 0.2 %; Immature Granulocytes Absolute 0.01 #; Lymphocytes # 1.7 10*3/uL (1.4-4.0); Lymphocytes % 35.9 % (21.2-54.2); Mean Corpuscular HGB Conc 33.6 GM/DL (32-36); Mean Corpuscular Hemoglobin 29 PG (27-34); Mean Corpuscular Volume 87.2 FL (87-102); Mean Platelet Volume 10.6 FL (9.6-12.0); Monocytes # 0.5 10*3/uL (0.11-0.8); Monocytes % 11.5 % (1.7-12.7); Neutrophils # 2.2 10*3/uL (1.4-7.4); Platelet Count 186 T/CUMM (130-400); Red Blood Count 3.99 MC/CUMM (3.8-5.5); Red Cell Distribution Width 13.1 % (9.3-17.3); White Blood Count 4.6 T/CUMM (4-12)
[2017-02-14 06:05] LABS: Calcium 8.3 MG/DL (8.5-10.1); Magnesium 2.2 MG/DL (1.8-2.4); Osmolality,Calculated 281.1 MOS/KG (273-304); Potassium 3.8 MMOL/L (3.5-5.1)
[2017-02-14 06:10] LABS: Calcium 8.4 MG/DL (8.5-10.1); Osmolality,Calculated 280.1 MOS/KG (273-304); Potassium 3.9 MMOL/L (3.5-5.1)
--- NOTE | 2017-02-14 08:02 | XRay Report ---
Exam: XR chest 1V portable Date: 02/14/2017 4:00 AM Indication: Shortness of breath Comparison: 02/11/2017 Technical: AP portable Findings: Sternotomy wires are present. Extracardiac leads oxygen tubing are present. Lateral marginal osteophytes are noted. No obvious consolidations are clearly demonstrated or pneumothorax. No obvious effusions. Mediastinum is intact with small nodes. Impression: 1. Improving aeration with decreasing interstitial alveolar density in the right infrahilar region 2. Previous sternotomy 3. Degenerative spondylosis 4. Previous cholecystectomy PROCEDURE INTERPRETED AT [facility] DEPARTMENT OF RADIOLOGY Final Report Signed by: Dr. Edgardo Barrientos
[2017-02-14] MEDS: FAMOTIDINE 20 MG TABLET PER TUBE SCH (08:33)
[2017-02-14] MEDS: ZINC OXIDE PASTE 113 GM TUBE TOP SCH ×2 (08:34→21:02)
[2017-02-14] MEDS: clonazePAM 0.5 MG TABLET PER TUBE SCH ×2 (08:34→21:02)
[2017-02-14] MEDS: ATORVASTATIN 40 MG TABLET PER TUBE SCH (08:34)
[2017-02-14] MEDS: MEROPENEM 1,000 MG in SODIUM CHLORIDE 0.9% 100 ML IV SCH ×2 (08:34→21:01)
[2017-02-14] MEDS: CHOLECALCIFEROL 1,000 UNIT TABLET PER TUBE SCH (08:34)
[2017-02-14] MEDS: ENOXAPARIN 40 MG/0.4 ML SYRINGE SUBCUT SCH (08:34)
[2017-02-14] MEDS: CARVEDILOL 3.125 MG TABLET PER TUBE SCH ×2 (08:34→21:02)
[2017-02-14] MEDS: TAMSULOSIN 0.4 MG CAPSULE PO SCH (08:34)
--- NOTE | 2017-02-14 09:03 | Pulmonology Progress Note ---
Pulmonary - PN: Subj Interval history: Patient is a 72-year-old black man from the care home with dementia. He comes back in with aspiration pneumonia. He was also felt to be somewhat septic and had staph epi on blood cultures. He is getting IV antibiotics. He is doing fairly well at present and not having any trouble breathing. He looks about like he usually does. His chest x-ray has cleared nicely and he has no infiltrates now. He is not having any respiratory distress. Exam (Progress Note) - Constitutional Vitals: Period Temp Pulse Resp BP Sys/Bowling Pulse Ox Last 24 Hr 96.1 F-98.3 F 63-79 16-22 120-145/72-82 97-100 Exam: General appearance: normal weight, no acute distress (He is resting comfortably off of O2 .) - Head Head exam: Present: normal inspection, normocephalic - Eye Eye exam: Present: EOMI. Absent: scleral icterus Pupils: Present: TYRONE - ENT ENT exam: Present: other (He has dry mucous membranes) - Neck Neck exam: Present: meningismus (He is very rigid.). Absent: thyromegaly - Respiratory Respiratory exam: Present: He has fairly good breath sounds bilaterally without any rales or wheezing now. - Cardiovascular Cardiovascular exam: Present: regular rate and rhythm. Absent: gallop, systolic murmur - GI/Abdominal GI/Abdominal exam: Present: normal bowel sounds, soft, other (He does have a PEG tube in place.). Absent: organomegaly, tenderness - Extremities Exam Extremities exam: Present: other (His extremities are somewhat rigid.). Absent : calf tenderness, edema - Neurological Exam Neurological exam: Present: He responds a little but looks like he is at his baseline. - Psychiatric Psychiatric exam: Absent: anxious - Skin Skin exam: Present: warm, dry Results - Labs CBC & BMP: 02/14/17 05:19 02/14/17 05:19 - Diagnostic Findings Procedure: Chest x-ray: image reviewed by me, report reviewed by me (Chest x- ray is clear now on the right lower lobe infiltrate has resolved.) Assessment and Plan (1) Aspiration pneumonia Status: Acute Assessment and plan: The patient probably does aspirate and should be kept n.p.o. at all times. He does have a PEG tube. His breathing is better and his chest x-ray has cleared. His pneumonia is markedly better. Current Visit: Yes (2) Dementia of Alzheimer's type with behavioral disturbance Status: Acute Assessment and plan: The patient is a care home patient with end-stage dementia. He should be a DNR. Looks like he is at his baseline now. Current Visit: No
--- NOTE | 2017-02-14 10:09 | Hospitalist Progress Note ---
Assessment and Plan (1) Sepsis Status: Acute Assessment and plan: Sepsis appears to have resolved with his present treatment. Today his blood pressure is 134/74, HR 67/min, and temperature 96.1F. He continues on intravenous vancomycin and meropenem. Current Visit: No Qualifiers: Sepsis type: sepsis due to unspecified organism Qualified Code(s): A41.9 - Sepsis, unspecified organism (2) Aspiration pneumonia Status: Acute Assessment and plan: He has dysphagia for which she has a PEG tube. His pneumonia appears to be improving. He continues on intravenous vancomycin and meropenem. I will obtain a repeat chest x-ray. Current Visit: Yes Qualifiers: Aspiration pneumonia type: unspecified Lung location: unspecified part of lung (3) Alzheimer's type dementia Status: Chronic Assessment and plan: He has advanced dementia. He reportedly is at his baseline mental status at the present time. Current Visit: No Qualifiers: Dementia behavioral disturbance: with behavioral disturbance (4) Altered mental status Status: Acute Assessment and plan: Resolved. Most probably secondary to toxic encephalopathy due to his pneumonia. Current Visit: Yes Qualifiers: Altered mental status type: unspecified Qualified Code(s): R41.82 - Altered mental status, unspecified Hospitalist: Subjective Interval history: Patient is a [facility] resident with advanced dementia. Was hospitalized here four days ago with recurrent aspiration pneumonia. He has a chronic PEG tube. Blood cultures demonstrated MSSA. He has been treated with intravenous vancomycin and meropenem. He had experienced altered mental status on admission for which was seen in consultation by neurology. It was neurology's opinion that his altered mental status was probably due to either infectious encephalopathy and/or advancing dementia. He is reportedly back to his baseline status today. Exam - Constitutional Vitals: Period Temp Pulse Resp BP Sys/Bowling Pulse Ox Last 24 Hr 96.1 F-98.3 F 58-79 16-22 120-145/72-82 97-100 General appearance: no acute distress - Head Head exam: Present: normal inspection - Neck Neck exam: Present: normal inspection - Respiratory Respiratory exam: Present: clear to auscultation bilaterally - Cardiovascular Cardiovascular exam: Present: regular rate and rhythm - GI/Abdominal GI/Abdominal exam: Present: normal bowel sounds, soft, other (PEG tube is in place. Nontender with no palpable masses or hepatosplenomegaly.) - Extremities Exam Extremities exam: Present: normal inspection - Neurological Exam Neurological exam: Present: other (He makes attempts to talk is unresponsive to my conversation.) - Skin Skin exam: Present: normal color, warm, intact Results - Labs CBC & BMP: 02/14/17 05:19 02/14/17 05:19
[2017-02-14] MEDS: DONEPEZIL 10 MG TABLET PER TUBE SCH (21:01)
[2017-02-15] MEDS: ALBUTEROL/IPRATROPIUM 3 ML NEB RESP TX SCH ×5 (02:21→19:21)
[2017-02-15 04:17] LABS: Eosinophils # 0.2 10*3/uL (0.0-0.87); Eosinophils % 3.9 % (0.00-10.9); Hematocrit 37.4 VOL% (42.0-52.0); Hemoglobin 12.6 GM/DL (14.0-18.0); Immature Granulocytes % 0.5 %; Immature Granulocytes Absolute 0.02 #; Lymphocytes # 1.3 10*3/uL (1.4-4.0); Lymphocytes % 31.4 % (21.2-54.2); Mean Corpuscular HGB Conc 33.7 GM/DL (32-36); Mean Corpuscular Hemoglobin 30 PG (27-34); Mean Corpuscular Volume 87.8 FL (87-102); Monocytes # 0.5 10*3/uL (0.11-0.8); Monocytes % 11.7 % (1.7-12.7); Neutrophils # 2.1 10*3/uL (1.4-7.4); Neutrophils % 51.5 % (38.7-73.9); Platelet Count 146 T/CUMM (130-400); Red Blood Count 4.26 MC/CUMM (3.8-5.5); Red Cell Distribution Width 13.1 % (9.3-17.3); White Blood Count 4.1 T/CUMM (4-12)
[2017-02-15] MEDS: VANCOMYCIN INJ 1,000 MG in SODIUM CHLORIDE 0.9% 250 ML IV SCH ×2 (04:32→17:32)
[2017-02-15 04:54] LABS: Calcium 8.8 MG/DL (8.5-10.1); Osmolality,Calculated 281.1 MOS/KG (273-304); Potassium 3.7 MMOL/L (3.5-5.1)
--- NOTE | 2017-02-15 07:20 | XRay Report ---
Exam: XR chest 1V portable Date: 02/15/2017 4:00 AM Indication: Pneumonia Comparison: None Technical: AP Findings: External cardiac leads are present. Sternotomy wires are present. Lateral marginal osteophytes are noted. Oxygen tubing is present. No obvious consolidations or effusions present. Minimal atelectatic change in the right base. Mild cardiac enlargement. Impression: 1. Minimal residual atelectatic change in the right base. 2. Radiographic findings are unchanged. PROCEDURE INTERPRETED AT [facility] DEPARTMENT OF RADIOLOGY Final Report Signed by: Dr. Edgardo Barrientos
--- NOTE | 2017-02-15 08:17 | Pulmonology Progress Note ---
Pulmonary - PN: Subj Interval history: Patient is a 72-year-old black man [facility] with dementia. He comes back in with aspiration pneumonia. He was also felt to be somewhat septic and had staph epi on blood cultures. He is getting IV antibiotics. He is doing fairly well at present and not having any trouble breathing. He looks about like he usually does. He apparently had a reasonable night. He is tolerating his tube feedings. His chest x-ray is now clear. Mentally he is about at his baseline. Exam (Progress Note) - Constitutional Vitals: Period Temp Pulse Resp BP Sys/Bowling Pulse Ox Last 24 Hr 97.2 F-98.2 F 60-99 15-22 128-173/69-89 96-100 Exam: General appearance: normal weight, no acute distress (He is resting comfortably off of O2 . He has no respiratory distress at all.) - Head Head exam: Present: normal inspection, normocephalic - Eye Eye exam: Present: EOMI. Absent: scleral icterus Pupils: Present: TYRONE - ENT ENT exam: Present: other (He has dry mucous membranes) - Neck Neck exam: Present: meningismus (He is very rigid.). Absent: thyromegaly - Respiratory Respiratory exam: Present: He has fairly good breath sounds bilaterally is moving air okay. He does have some mild rhonchi. - Cardiovascular Cardiovascular exam: Present: regular rate and rhythm. Absent: gallop, systolic murmur - GI/Abdominal GI/Abdominal exam: Present: normal bowel sounds, soft, other (He does have a PEG tube in place.). Absent: organomegaly, tenderness - Extremities Exam Extremities exam: Present: other (His extremities are somewhat rigid.). Absent : calf tenderness, edema - Neurological Exam Neurological exam: Present: He responds a little but looks like he is at his baseline. - Psychiatric Psychiatric exam: Absent: anxious - Skin Skin exam: Present: warm, dry Results - Labs CBC & BMP: 02/15/17 03:38 02/15/17 03:38 - Diagnostic Findings Procedure: Chest x-ray: image reviewed by me, report reviewed by me (His chest x -ray is clear.) Assessment and Plan (1) Aspiration pneumonia Status: Acute Assessment and plan: The patient probably does aspirate and should be kept n.p.o. at all times. He does have a PEG tube. His breathing is better and his chest x-ray has cleared. His pneumonia is markedly better. His respiratory status is stable. Current Visit: Yes Qualifiers: Aspiration pneumonia type: unspecified Lung location: unspecified part of lung (2) Dementia of Alzheimer's type with behavioral disturbance Status: Acute Assessment and plan: The patient is a prison patient with end-stage dementia. He should be a DNR. Looks like he is at his baseline now. He is unchanged mentally. Current Visit: No (3) Staphylococcus epidermidis bacteremia Status: Acute Assessment and plan: He is getting IV antibiotics for his bacteremia. He does not appear toxic at present. Current Visit: Yes
--- NOTE | 2017-02-15 08:32 | Hospitalist Progress Note ---
Assessment and Plan (1) Sepsis Status: Acute Assessment and plan: Sepsis appears to have resolved with his present treatment. Today his blood pressure is 128/78, HR 61/min, and temperature 97.7F. He continues on intravenous vancomycin and meropenem. Current Visit: No Qualifiers: Sepsis type: sepsis due to unspecified organism Qualified Code(s): A41.9 - Sepsis, unspecified organism (2) Aspiration pneumonia Status: Acute Assessment and plan: He has dysphagia for which she has a PEG tube. His pneumonia appears to be improving. He continues on intravenous vancomycin and meropenem. Repeat CXR showed minimal RLL atelectasis. Current Visit: Yes Qualifiers: Aspiration pneumonia type: unspecified Lung location: unspecified part of lung (3) Alzheimer's type dementia Status: Chronic Assessment and plan: He has advanced dementia. He reportedly is at his baseline mental status at the present time. Current Visit: No Qualifiers: Dementia behavioral disturbance: with behavioral disturbance (4) Altered mental status Status: Acute Assessment and plan: Resolved. Most probably secondary to toxic encephalopathy due to his pneumonia. Current Visit: Yes Qualifiers: Altered mental status type: unspecified Qualified Code(s): R41.82 - Altered mental status, unspecified Hospitalist: Subjective Interval history: Patient is a [facility] resident with advanced dementia. Was hospitalized here four days ago with recurrent aspiration pneumonia. He has a chronic PEG tube. Blood cultures demonstrated MSSA. He has been treated with intravenous vancomycin and meropenem. He had experienced altered mental status on admission for which was seen in consultation by neurology. It was neurology's opinion that his altered mental status was probably due to either infectious encephalopathy and/or advancing dementia. He is reportedly back to his baseline status today. Patient is being followed by Pulmonary. Because the bacterial sensitivities require continuation of IV antibiotics, I will continue the meropenem and vancomycin for three more days prior to discharge. Exam - Constitutional Vitals: Period Temp Pulse Resp BP Sys/Bowling Pulse Ox Last 24 Hr 97.2 F-98.2 F 56-99 15-22 128-173/69-89 96-100 General appearance: no acute distress - Head Head exam: Present: normal inspection - Neck Neck exam: Present: normal inspection - Respiratory Respiratory exam: Present: clear to auscultation bilaterally - Cardiovascular Cardiovascular exam: Present: regular rate and rhythm - GI/Abdominal GI/Abdominal exam: Present: normal bowel sounds, soft, other (PEG tube.) - Extremities Exam Extremities exam: Present: normal inspection - Neurological Exam Neurological exam: Present: other (awake but not responsive.) - Skin Skin exam: Present: normal color, warm, intact Results - Labs CBC & BMP: 02/15/17 03:38 02/15/17 03:38
[2017-02-15] MEDS: ENOXAPARIN 40 MG/0.4 ML SYRINGE SUBCUT SCH (10:35)
[2017-02-15] MEDS: CHOLECALCIFEROL 1,000 UNIT TABLET PER TUBE SCH (10:36)
[2017-02-15] MEDS: clonazePAM 0.5 MG TABLET PER TUBE SCH ×2 (10:36→21:00)
[2017-02-15] MEDS: FAMOTIDINE 20 MG TABLET PER TUBE SCH (10:36)
[2017-02-15] MEDS: ZINC OXIDE PASTE 113 GM TUBE TOP SCH ×2 (10:37→21:00)
[2017-02-15] MEDS: CARVEDILOL 3.125 MG TABLET PER TUBE SCH ×2 (10:37→21:00)
[2017-02-15] MEDS: TAMSULOSIN 0.4 MG CAPSULE PO SCH (10:37)
[2017-02-15] MEDS: ATORVASTATIN 40 MG TABLET PER TUBE SCH (10:37)
[2017-02-15] MEDS: MEROPENEM 1,000 MG in SODIUM CHLORIDE 0.9% 100 ML IV SCH ×2 (10:38→20:03)
--- NOTE | 2017-02-15 15:29 | Neurology Progress Note ---
Neurology - PN : Subjective Interval history: Patient would like is at his baseline mentally and cognitively. No new problems reported. No seizures reported. Exam (Progress Note) - Constitutional Vitals: Period Temp Pulse Resp BP Sys/Bowling Pulse Ox Last 24 Hr 96.8 F-97.7 F 56-99 15-22 128-173/69-89 96-100 Exam: GENERAL: Patient is in no acute distress. NECK: Neck is supple. There is no JVD. No carotid bruits present. No thyroid masses. CVS: First and second heart sounds are normal. There is no S3 present. Regular rate and rhythm. RESPIRATORY: Lungs are clear to auscultation without any rales or rhonchi. ABDOMEN: Soft and non-tender. Bowel sounds are present. There is no hepatosplenomegaly. EXT: There is no palpable edema. Peripheral pulses are present. Skin: No rashes Central Nervous system: General: Awake, eyes are open Speech: Trying to talk some Comprehension: Impaired Facial expressions: Normal Cranial Nerves: Pupils are equally reactive to light. Doll's head eye movements are positive. Motor: Some hypertonia in all 4 extremities Strength cannot be assessed Sensory: Cannot be assessed Reflexes: 1+ and symmetrical Cerebellar function: Cannot be assessed Toes: Equivocal Gait: Cannot be assessed Results - Labs CBC & BMP: 02/15/17 03:38 02/15/17 03:38 Assessment and Plan (1) Altered mental status Status: Acute Assessment and plan: I believe his mental status is at its baseline. No further recommendations from neuro standpoint Current Visit: Yes Qualifiers: Altered mental status type: unspecified Qualified Code(s): R41.82 - Altered mental status, unspecified (2) Major neurocognitive disorder, due to Alzheimer's disease, with behavioral disturbance, mild Status: Acute Assessment and plan: Continue Aricept for now Any further intervention will not change the outcome Sign off please call as needed Current Visit: No
[2017-02-15] MEDS ORDERED: hydrALAZINE 20 MG/1 ML VIAL IV PRN (17:03)
[2017-02-15] MEDS: DONEPEZIL 10 MG TABLET PER TUBE SCH (21:00)
[2017-02-16] MEDS: ALBUTEROL/IPRATROPIUM 3 ML NEB RESP TX SCH ×8 (00:28→22:43)
[2017-02-16] MEDS: VANCOMYCIN INJ 1,000 MG in SODIUM CHLORIDE 0.9% 250 ML IV SCH ×2 (04:00→16:23)
[2017-02-16 06:24] LABS: Magnesium 2.4 MG/DL (1.8-2.4); Prealbumin 17.4 MG/DL (20-40)
--- NOTE | 2017-02-16 08:28 | Pulmonology Progress Note ---
Pulmonary - PN: Subj Interval history: Patient is a 72-year-old black man from the [place] [facility] with dementia. He comes back in with aspiration pneumonia. He was also felt to be somewhat septic and had staph epi on blood cultures. He is getting IV antibiotics. He is doing fairly well at present and not having any trouble breathing. He looks about like he usually does. He has not had any further fever or breathing trouble. He is tolerating his feedings. He looks like he is stable. Exam (Progress Note) - Constitutional Vitals: Period Temp Pulse Resp BP Sys/Bowling Pulse Ox Last 24 Hr 96.8 F-99.1 F 51-91 16-25 97-192/51-111 85-100 Exam: General appearance: normal weight, no acute distress (He is resting comfortably off of O2 . He has no respiratory distress at all. He looks about the same today.) - Head Head exam: Present: normal inspection, normocephalic - Eye Eye exam: Present: EOMI. Absent: scleral icterus Pupils: Present: TYRONE - ENT ENT exam: Present: other (He has dry mucous membranes) - Neck Neck exam: Present: meningismus (He is very rigid.). Absent: thyromegaly - Respiratory Respiratory exam: Present: He has fairly good breath sounds bilaterally is moving air okay. He does have some mild rhonchi. He has no wheezing or consolidation. - Cardiovascular Cardiovascular exam: Present: regular rate and rhythm. Absent: gallop, systolic murmur - GI/Abdominal GI/Abdominal exam: Present: normal bowel sounds, soft, other (He does have a PEG tube in place.). Absent: organomegaly, tenderness - Extremities Exam Extremities exam: Present: other (His extremities are somewhat rigid.). Absent : calf tenderness, edema - Neurological Exam Neurological exam: Present: He responds a little but looks like he is at his baseline. - Psychiatric Psychiatric exam: Absent: anxious - Skin Skin exam: Present: warm, dry Results - Labs CBC & BMP: 02/15/17 03:38 02/15/17 03:38 Assessment and Plan (1) Aspiration pneumonia Status: Acute Assessment and plan: The patient probably does aspirate and should be kept n.p.o. at all times. He does have a PEG tube. His breathing is better and his chest x-ray has cleared. His pneumonia is markedly better. His respiratory status is stable. He does not need to try to take anything orally when he goes back to the [place] [facility]. At this point his respiratory status is stable and I will drop off. Current Visit: Yes Qualifiers: Aspiration pneumonia type: unspecified Lung location: unspecified part of lung (2) Dementia of Alzheimer's type with behavioral disturbance Status: Acute Assessment and plan: The patient is a [facility] patient with end-stage dementia. He should be a DNR. Looks like he is at his baseline now. He is unchanged mentally. Current Visit: No (3) Staphylococcus epidermidis bacteremia Status: Acute Assessment and plan: He is getting IV antibiotics for his bacteremia. He does not appear toxic at present. He is tolerating his antibiotics. Current Visit: Yes
[2017-02-16] MEDS: FAMOTIDINE 20 MG TABLET PER TUBE SCH (09:16)
[2017-02-16] MEDS: ATORVASTATIN 40 MG TABLET PER TUBE SCH (09:16)
[2017-02-16] MEDS: CHOLECALCIFEROL 1,000 UNIT TABLET PER TUBE SCH (09:16)
[2017-02-16] MEDS: clonazePAM 0.5 MG TABLET PER TUBE SCH ×3 (09:16→20:12)
[2017-02-16] MEDS: ZINC OXIDE PASTE 113 GM TUBE TOP SCH ×2 (09:16→20:12)
[2017-02-16] MEDS: CARVEDILOL 3.125 MG TABLET PER TUBE SCH ×2 (09:16→20:11)
[2017-02-16] MEDS: MEROPENEM 1,000 MG in SODIUM CHLORIDE 0.9% 100 ML IV SCH ×2 (09:16→20:11)
[2017-02-16] MEDS: TAMSULOSIN 0.4 MG CAPSULE PO SCH (09:16)
[2017-02-16] MEDS: ENOXAPARIN 40 MG/0.4 ML SYRINGE SUBCUT SCH (09:16)
--- NOTE | 2017-02-16 09:19 | Hospitalist Progress Note ---
Assessment and Plan (1) Sepsis Status: Acute Assessment and plan: Sepsis appears to have resolved with his present treatment. He continues on intravenous vancomycin and meropenem. Current Visit: No Qualifiers: Sepsis type: sepsis due to unspecified organism Qualified Code(s): A41.9 - Sepsis, unspecified organism (2) Aspiration pneumonia Status: Acute Assessment and plan: He has dysphagia for which she has a PEG tube. His pneumonia appears to be improving. He continues on intravenous vancomycin and meropenem. Repeat CXR showed minimal RLL atelectasis. Current Visit: Yes Qualifiers: Aspiration pneumonia type: unspecified Lung location: unspecified part of lung (3) Alzheimer's type dementia Status: Chronic Assessment and plan: He has advanced dementia. He reportedly is at his baseline mental status at the present time. Current Visit: No Qualifiers: Dementia behavioral disturbance: with behavioral disturbance (4) Altered mental status Status: Acute Assessment and plan: Resolved. Most probably secondary to toxic encephalopathy due to his pneumonia. Current Visit: Yes Qualifiers: Altered mental status type: unspecified Qualified Code(s): R41.82 - Altered mental status, unspecified Hospitalist: Subjective Interval history: Patient appears stable. He is comfortable with no obvious problems. Today is day 6 of intravenous meropenem and vancomycin. I will discharge him tomorrow back to his alf after receiving his doses of antibiotics. Exam - Constitutional Vitals: Period Temp Pulse Resp BP Sys/Bowling Pulse Ox Last 24 Hr 96.8 F-99.1 F 51-91 16-25 97-192/51-111 85-100 General appearance: no acute distress - Head Head exam: Present: normal inspection - Neck Neck exam: Present: normal inspection - Respiratory Respiratory exam: Present: clear to auscultation bilaterally - Cardiovascular Cardiovascular exam: Present: regular rate and rhythm - GI/Abdominal GI/Abdominal exam: Present: normal bowel sounds, soft, other (Nontender with no palpable masses or hepatosplenomegaly.) - Extremities Exam Extremities exam: Present: normal inspection - Neurological Exam Neurological exam: Present: other (Awake but unresponsive to conversation.) - Skin Skin exam: Present: normal color, warm, intact Results - Labs CBC & BMP: 02/15/17 03:38 02/15/17 03:38
[2017-02-16] MEDS: DONEPEZIL 10 MG TABLET PER TUBE SCH (20:11)
[2017-02-17] MEDS: ALBUTEROL/IPRATROPIUM 3 ML NEB RESP TX SCH ×2 (02:48→07:17)
[2017-02-17] MEDS: VANCOMYCIN INJ 1,000 MG in SODIUM CHLORIDE 0.9% 250 ML IV SCH (05:39)
[2017-02-17 06:27] LABS: Basophils % 0.6 % (0.0-0.8); Eosinophils # 0.2 10*3/uL (0.0-0.87); Eosinophils % 4.5 % (0.00-10.9); Hematocrit 37.4 VOL% (42.0-52.0); Hemoglobin 12.4 GM/DL (14.0-18.0); Immature Granulocytes % 0.2 %; Immature Granulocytes Absolute 0.01 #; Lymphocytes # 1.5 10*3/uL (1.4-4.0); Lymphocytes % 31.1 % (21.2-54.2); Mean Corpuscular HGB Conc 33.2 GM/DL (32-36); Mean Corpuscular Hemoglobin 29 PG (27-34); Mean Corpuscular Volume 88.4 FL (87-102); Mean Platelet Volume 11.9 FL (9.6-12.0); Monocytes # 0.5 10*3/uL (0.11-0.8); Monocytes % 10.5 % (1.7-12.7); Neutrophils # 2.6 10*3/uL (1.4-7.4); Neutrophils % 53.1 % (38.7-73.9); Platelet Count 185 T/CUMM (130-400); Red Blood Count 4.23 MC/CUMM (3.8-5.5); Red Cell Distribution Width 13.3 % (9.3-17.3); White Blood Count 4.9 T/CUMM (4-12)
[2017-02-17 07:07] LABS: Calcium 8.7 MG/DL (8.5-10.1); Osmolality,Calculated 280.3 MOS/KG (273-304); Potassium 3.9 MMOL/L (3.5-5.1)
--- NOTE | 2017-02-17 07:52 | Discharge Summary ---
Hospital Course - Hospital Course Hospital Course: Called to the ER for Mr. Augustine who is a 72 year old male who presents to the emergency department [facility] with chief complaint of shortness of breath per [facility] staff. Patient was recently discharged on January 17 and February 01 for bilateral aspiration pneumonia. Both visits he was placed in the ICU. During the January 17 visit, he was not intubated and managed on supplemental oxygen only. On the February 01 visit, he was intubated with ventilator support for several days. He was sent back to the [facility] on antibiotics ( Levaquin and Augmentin ER) p.o. after both visits. Pulmonology has followed patient during each hospital stay. [facility] picked him up and reported oxygen saturations in the low 80s on room air. skilled nursing staff told EMS there was a good chance he could have aspirated again. In our ER, he received 2 L normal saline, Zosyn and Vanc, blood and urine cultures, and an albuterol treatment. Patient's oxygen saturations on 3 L via nasal cannula ranged from 92 -94%. Chest x-ray right lower lobe consolidation. Past chest x-rays reveal pneumonia in the bilateral upper lobes. Patient has a history of severe dementia, CVA, hypertension, and STEMI, recurrent pneumonia, dysphagia (has PEG tube), and sacral decubitus ulcer. Patient is a resident of [facility]. No family is at bedside. All history is obtained by old records. He remains a full code. He will be admitted into the ICU. We will start him on Levaquin and clindamycin and await blood and urine cultures. He will require aggressive pulmonary toiletry including NT suctioning and chest physiotherapy to keep from being intubated. He will receive DuoNeb treatments every 4. We will consult pulmonology for a possible bronc with washout and wound care for sacral decubitus ulcer Patient was treated with intravenous vancomycin and meropenem. He received local care to his sacral decubitus which appear to be free of active infection and improved significantly during his hospitalization.Laboratory testing of the time of discharge demonstrated him to have BUN 12 creatinine 0.6 hematocrit 37.4 hemoglobin 12.4 and WBC 4900. At the time of discharge she was stable with no problems. Diagnosis - Discharge Diagnosis (1) Sepsis Status: Acute (2) Aspiration pneumonia Status: Acute (3) Alzheimer's type dementia Status: Chronic (4) Altered mental status Status: Acute Discharge Plan - Discharge Data Disposition: Disch/Xfer to Snf Condition at Discharge: Stable Discharge Diet: other (PEG feedings) Activity: resume usual activities as tolerated - Discharge Medications Continue Atorvastatin [Lipitor] 40 mg PER TUBE DAILY Carvedilol 3.125 mg PER TUBE BID Cholecalciferol (Vitamin D3) [Vitamin D3 Chew Tab] 1,000 unit PER TUBE DAILY Cyanocobalamin (Vitamin B-12) [Vitamin B-12] 1,000 mcg PER TUBE DAILY Montelukast Tab [Singulair Tab] 10 mg PER TUBE BEDTIME Docusate Sodium Cap [Colace Cap] 100 mg PER TUBE DAILY Multivitamin [One Daily] 1 tablet PER TUBE DAILY Tamsulosin [Flomax] 0.4 mg PER TUBE DAILY Famotidine 20 mg PER TUBE DAILY risperiDONE [Risperidone] 0.5 mg PER TUBE TID Acetaminophen 650 mg PER TUBE Q4H PRN PRN Reason: Fever, Headache, Mild Pain clonazePAM TAB [KlonoPIN] 0.5 mg PER TUBE TID Amlodipine Besylate 5 mg PER TUBE DAILY Memantine [Namenda] 10 mg PER TUBE BID LORazepam [Lorazepam] 0.5 mg PO TID Quetiapine Fumarate 25 mg PER TUBE BEDTIME Potassium Chloride Liquid 20 meq PER TUBE DAILY Donepezil [Aricept] 10 mg PER TUBE BEDTIME Hydrocodone/Acetaminophen [Hydrocodon-Acetaminophen 5-325] 1 each PER TUBE Q6HR PRN PRN Reason: Pain Tramadol HCl [Tramadol Tab] 50 mg PER TUBE TID Gabapentin Cap/Tab [Neurontin Cap/Tab] 400 mg PER TUBE TID - Follow Up or Referral - Forms/Instructions Exam - Constitutional Vitals: Period Temp Pulse Resp BP Sys/Bowling Pulse Ox Last 24 Hr 97.1 F-99.5 F 51-84 18-69 103-166/55-98 92-99 Discharge Results Labs on day of discharge: Labs from last 24 hours 02/17/17 02/17/17 02/17/17 06:08 04:58 04:58 WBC RBC Hgb Hct MCV MCH MCHC RDW Plt Count MPV Neut % (Auto) Lymph % (Auto) Ross % (Auto) Eos % (Auto) Baso % (Auto) Neut # (Auto) Lymph # (Auto) Ross # (Auto) Eos # (Auto) Baso # (Auto) Immature Gran % Nucleated RBC % Immature Gran # Nucleated RBCs # Immature Plt Fraction Sodium 141 Potassium 3.9 Chloride 106 Carbon Dioxide 29 Anion Gap 9.9 BUN 12 Creatinine 0.60 L GFR Calculation 120 BUN/Creatinine Ratio 20.00 Glucose 93 POC Glucose 88 Calculated Osmolality 280.3 Calcium 8.7 Vancomycin Trough 21.3 H 02/17/17 02/17/17 02/16/17 04:58 00:00 19:46 WBC 4.9 RBC 4.23 Hgb 12.4 L Hct 37.4 L MCV 88.4 MCH 29 MCHC 33.2 RDW 13.3 Plt Count 185 D MPV 11.9 Neut % (Auto) 53.1 Lymph % (Auto) 31.1 Ross % (Auto) 10.5 Eos % (Auto) 4.5 Baso % (Auto) 0.6 Neut # (Auto) 2.6 Lymph # (Auto) 1.5 Ross # (Auto) 0.5 Eos # (Auto) 0.2 Baso # (Auto) 0.0 Immature Gran % 0.2 Nucleated RBC % 0.0 Immature Gran # 0.01 Nucleated RBCs # 0.00 Immature Plt Fraction 0.0 Sodium Potassium Chloride Carbon Dioxide Anion Gap BUN Creatinine GFR Calculation BUN/Creatinine Ratio Glucose POC Glucose 99 101 Calculated Osmolality Calcium Vancomycin Trough 02/16/17 02/16/17 02/16/17 15:38 11:12 06:19 WBC RBC Hgb Hct MCV MCH MCHC RDW Plt Count MPV Neut % (Auto) Lymph % (Auto) Ross % (Auto) Eos % (Auto) Baso % (Auto) Neut # (Auto) Lymph # (Auto) Ross # (Auto) Eos # (Auto) Baso # (Auto) Immature Gran % Nucleated RBC % Immature Gran # Nucleated RBCs # Immature Plt Fraction Sodium Potassium Chloride Carbon Dioxide Anion Gap BUN Creatinine GFR Calculation BUN/Creatinine Ratio Glucose POC Glucose 107 H 85 105 Calculated Osmolality Calcium Vancomycin Trough 02/16/17 04:45 WBC RBC Hgb Hct MCV MCH MCHC RDW Plt Count MPV Neut % (Auto) Lymph % (Auto) Ross % (Auto) Eos % (Auto) Baso % (Auto) Neut # (Auto) Lymph # (Auto) Ross # (Auto) Eos # (Auto) Baso # (Auto) Immature Gran % Nucleated RBC % Immature Gran # Nucleated RBCs # Immature Plt Fraction Sodium Potassium Chloride Carbon Dioxide Anion Gap BUN Creatinine GFR Calculation BUN/Creatinine Ratio Glucose POC Glucose Calculated Osmolality Calcium Vancomycin Trough 24.2 H DS: Provider Date of admission: 02/10/17 05:28 Primary care physician: . No PCP Attending physician on admission: Sukhdeep Monroy MD Consults: 02/10/17 06:16 Consult to Physician [CONS] Routine Comment: recurrent aspiration pneumonia; bronchoscopy Consulting Provider: Pierre Dawson Consulting Provider Notified: Yes Consult to Specialist Group: Pulmonology Consult Notification Comment: DR.ALEXANDER JUARES SEEN PT THIS AM Consult to Wound Care - [place] [CONS] Routine Reason for Wound Care: Wound Care Management Consult Comment: sacral wound 02/10/17 08:59 Consult to Physician [CONS] Routine Comment: seizures Consulting Provider: Obie More Consult Notification Comment: NOT [employer]KER UNTIL MONDAY. NOTIFY HIM THEN 02/11/17 11:01 Consult to Dietitian [CONS] Routine Reason for Dietitian: TF-Initiate/Manage Consult Comment: questions about free water intake 02/11/17 12:08 Consult to Pharmacy [CONS] Routine Reason for Pharmacy Consult: Dose/Manage Vancomycin 02/16/17 09:19 Consult to Case Mgmt/Social Srvs [CONS] Routine Reason for Case Mgmt/Social Srvs: Discharge Planning Consult Comment: Discharge tomorrow Discharging clinician: Unruly Ren
[2017-02-17 08:40] VITALS: BP 150/92
[2017-02-17] MEDS: TAMSULOSIN 0.4 MG CAPSULE PO SCH (10:23)
[2017-02-17] MEDS: ATORVASTATIN 40 MG TABLET PER TUBE SCH (10:23)
[2017-02-17] MEDS: CARVEDILOL 3.125 MG TABLET PER TUBE SCH (10:24)
[2017-02-17] MEDS: CHOLECALCIFEROL 1,000 UNIT TABLET PER TUBE SCH (10:24)
[2017-02-17] MEDS: FAMOTIDINE 20 MG TABLET PER TUBE SCH (10:24)
[2017-02-17] MEDS: clonazePAM 0.5 MG TABLET PER TUBE SCH (10:24)
[2017-02-17] MEDS: MEROPENEM 1,000 MG in SODIUM CHLORIDE 0.9% 100 ML IV SCH (10:29)
[2017-02-17] MEDS: ZINC OXIDE PASTE 113 GM TUBE TOP SCH (10:29)
[2017-02-17] MEDS: ENOXAPARIN 40 MG/0.4 ML SYRINGE SUBCUT SCH (10:29)
--- NOTE | 2017-02-22 11:29 | Physician Query Form ---
CLICK EDIT DOCUMENT TO SELECT QUERY ANSWER --> OK --> SIGN Shayna Grady RN [employer] W) [phone] (f) [phone] [email or web address] PROVIDERS: Make your selection(s) from the choices in EACH section by typing an "x" and enter comments in the comment section. Please use your independent medical judgment in providing your response. This request does not imply that any particular answer is desired or expected. CLINICAL INDICATORS: (Providers should not edit this section) Based on documentation of "altered mental status, most probably secondary to toxic encephalopathy due to his pneumonia" and "It was neurology's opinion that his altered mental status was probably due to either infectious encephalopathy and/or advancing dementia". Patient was treated with intravenous vancomycin and meropenem. Can you please provide further clarification regarding Encephalopathy? CHRONICITY: ( x) Acute ( ) Chronic ( ) Acute on chronic ( ) Unable to determine ETIOLOGY: ( ) Toxic (x ) Infectious ( ) Alcoholic ( ) Hepatic ( ) with Coma ( ) without Coma ( ) Hypertensive ( ) Traumatic ( ) Metabolic ( ) Septic ( ) Drug Induced ( ) Due to other condition, please specify: ( ) Clinically unable to determine COMMENTS: PLEASE ALSO DOCUMENT RESPONSE IN PROGRESS NOTES AND/OR DISCHARGE SUMMARY Use of terms such as suspected, likely, or probable (associated with a specific diagnosis that is being evaluated, monitored, or treated as if it exists) are acceptable and can be restated in the discharge summary if not ruled out. MTDD
== END 2017-02-17 10:35 | DRG 871 ==
LOC: EDBD → EDUNIT# → N.ED 03:09 → SUATTDRO 05:28 → N.EDINP 05:28 → N.ICU 05:58 → N.2E 18:18
PROVIDERS: ADMIT Internal Medicine